=== PATIENT | female | born 1965 | race Hispanic/Latino ===

== ENCOUNTER 2020-11-09 14:21 | Emergency (ER) | payer OTHER, SELFPAY ==
[2020-11-09 15:25] LABS: #Monocytes 0.7 10x3/uL (0.0-1.1); #Neutrophils 4.3 10x3/uL (1.5-8.4); %Basophils 0.3 % (0.0-2.0); %Eosinophils 0.3 % (0.0-6.0); %Lymphocytes 17.8 % (18.0-47.0); %Monocytes 11.5 % (0.0-10.0); %Neutrophils 69.5 % (40.0-75.0); Hemoglobin 14.1 g/dL (12.0-15.5); Mean Corpuscular HGB CONC 35.2 g/dL (32.0-36.0); Mean Corpuscular Hemoglobin 29.2 pg (27.0-33.0); Mean Platelet Volume 9.6 fl (7.4-10.4); Platelet Count 214 10x3/uL (150-450); RBC Distribution Width 12.3 % (11.5-14.5); Red Blood Cell (RBC) Count 4.83 10x6/uL (3.90-5.03); White Blood Cell (WBC) Count 6.2 10x3/uL (3.5-10.5)
[2020-11-09 15:37] LABS: ALT (SGPT) 13 U/L (8-55); AST (SGOT) 14 U/L (5-34); Albumin 2.7 g/dL (3.5-5.0); Alkaline Phosphatase 71 U/L (40-110); Anion Gap 13 mmol/L (10-20); BUN (Urea Nitrogen) 13 mg/dL (9.8-20.1); Bilirubin, Total 0.3 mg/dL (0.2-1.2); Calc. Creatinine Clearance 0 mL/min (70-130); Calcium 8.5 mg/dL (7.8-10.44); Carbon Dioxide 24 mmol/L (22-29); Chloride 104 mmol/L (98-107); Globulin 3.3 g/dL (2.4-3.5); Glucose 300 mg/dL (70-105); Lipase 46 U/L (8-78); Potassium 3.7 mmol/L (3.5-5.1); Sodium 137 mmol/L (136-145)
[2020-11-09 15:44] LABS: Bilirubin Neg (Negative); Blood, Urine 150 (Negative); Clarity Slightly Cloudy (Clear); Glucose, Urine (Dipstick) >=1000 mg/dL (Negative); Ketone, Urine 5 mg/dL (Negative); Leukocyte 25 (Negative); Nitrite Negative (Negative); Protein, Urine (Dipstick) 500 mg/dl (Neg-Trace); Urobilinogen Normal mg/dL (Less than 2)
[2020-11-09 15:58] LABS: Bacteria/HPF 4+ HPF (None Seen); Squamous Epithelial 0-3 HPF (0-3)
[2020-11-09] MEDS ORDERED: Metoclopramide HCl 10 MG/2 ML VIAL ONE (17:01)
[2020-11-09] MEDS ORDERED: diphenhydrAMINE 50 MG/ML VIAL ONE (17:01)
[2020-11-09] MEDS ORDERED: Ketorolac Tromethamine 30 MG/ML VIAL ONE (17:01)
[2020-11-09] MEDS ORDERED: cefTRIAXone\\ROCEPHIN 2 GM VIAL ONE (17:47)
[2020-11-10 15:10] LABS: SARS-CoV-2 PCR by NAA DETECTED (NotDetected)
== END 2020-11-09 18:37 | disposition home or self-care (01) ==
LOC: CSHERS 14:21
DX: U07.1 COVID-19 (principal); N39.0 Urinary tract infection, site not specified; E11.9 Type 2 diabetes mellitus without complications; Z79.4 Long term (current) use of insulin
CPT/HCPCS: 71045; 80053; 81003; 81015; 83690; 85025; 87077; 87086; 87186; 87635; 87804; 96365; 96375; J0696; J1200; J1885; J2765; U0003; U0005

== ENCOUNTER 2022-03-16 02:23 | Emergency (ER) | payer OTHER, SELFPAY ==
[2022-03-16] MEDS ORDERED: Prochlorperazine 10 MG/2 ML VIAL ONE (02:45)
[2022-03-16] MEDS ORDERED: Ketorolac Tromethamine 30 MG/ML VIAL ONE (02:45)
== END 2022-03-16 04:35 | disposition home or self-care (01) ==
LOC: CSHERS 02:23
DX: R51.9 Headache, unspecified (principal); E11.9 Type 2 diabetes mellitus without complications; I10 Essential (primary) hypertension; Z79.899 Other long term (current) drug therapy
CPT/HCPCS: 70450; 96374; 96375; J0780; J1885

== ENCOUNTER 2022-05-14 23:22 | Inpatient (IN) | payer BC, SELFPAY ==
[2022-05-15] MEDS ORDERED: Dexamethasone 4 mg/ml Vial ONE (00:42)
[2022-05-15 00:48] LABS: #Eosinphils 0.1 10x3/uL (0.0-0.5); #Monocytes 0.8 10x3/uL (0.0-1.1); %Basophils 0.5 % (0.0-2.0); %Eosinophils 1.2 % (0.0-6.0); %Lymphocytes 8.8 % (18.0-47.0); %Monocytes 10.4 % (0.0-10.0); %Neutrophils 78.6 % (40.0-75.0); Hemoglobin 12.1 g/dL (12.0-15.5); Mean Corpuscular HGB CONC 34.4 g/dL (32.0-36.0); Mean Corpuscular Hemoglobin 28.8 pg (27.0-33.0); Mean Corpuscular Volume 83.8 fl (81.6-98.3); Platelet Count 252 10x3/uL (150-450); White Blood Cell (WBC) Count 7.6 10x3/uL (3.5-10.5)
[2022-05-15 00:55] LABS: ALT (SGPT) 9 U/L (8-55); AST (SGOT) 17 U/L (5-34); Alkaline Phosphatase 73 U/L (40-110); Anion Gap 13 mmol/L (10-20); BUN (Urea Nitrogen) 26 mg/dL (9.8-20.1); Bilirubin, Total 0.2 mg/dL (0.2-1.2); Calc. Creatinine Clearance 0 mL/min (70-130); Calcium 7.6 mg/dL (7.8-10.44); Carbon Dioxide 17 mmol/L (22-29); Chloride 110 mmol/L (98-107); Estimated GFR 26; Globulin 2.5 g/dL (2.4-3.5); Glucose 303 mg/dL (70-105); Potassium 3.6 mmol/L (3.5-5.1); Protein, Total 4.5 g/dL (6.0-8.3); Sodium 136 mmol/L (136-145)
[2022-05-15 01:31] LABS: SARS-CoV-2 NAA Rapid Test Not Detected (NotDetected)
[2022-05-15] MEDS ORDERED: Insulin Regular 300 UNITS/3 ML VIAL ONE (02:42)
[2022-05-15 04:14] VITALS: BMI 29.2
[2022-05-15] MEDS ORDERED: HYDROcodone/Acetaminophen 5/325 mg Tablet PO PRN (06:23)
[2022-05-15] MEDS ORDERED: Ondansetron PF 4 MG/2 ML Vial IVP PRN (06:23)
[2022-05-15] MEDS ORDERED: Ondansetron ODT 4 MG TAB PO PRN (06:23)
[2022-05-15] MEDS ORDERED: Dextrose 5% in Water 1,000 ML IV PRN ×2 (06:26→07:41)
[2022-05-15] MEDS ORDERED: Insulin Regular 300 UNITS/3 ML VIAL SC PRN (06:26)
[2022-05-15] MEDS ORDERED: Dextrose 50% Abboject 50 ML SYRINGE SLOW IVP PRN ×2 (06:26→07:41)
[2022-05-15 07:03] LABS: #Monocytes 0.1 10x3/uL (0.0-1.1); #Neutrophils 5.5 10x3/uL (1.5-8.4); %Basophils 0.5 % (0.0-2.0); %Lymphocytes 7.3 % (18.0-47.0); %Monocytes 1.7 % (0.0-10.0); %Neutrophils 89.8 % (40.0-75.0); Hemoglobin 11.1 g/dL (12.0-15.5); Mean Corpuscular HGB CONC 34.8 g/dL (32.0-36.0); Mean Corpuscular Hemoglobin 28.9 pg (27.0-33.0); Mean Corpuscular Volume 83.1 fl (81.6-98.3); Mean Platelet Volume 9.7 fl (7.4-10.4); Platelet Count 231 10x3/uL (150-450); RBC Distribution Width 12.9 % (11.5-14.5); Red Blood Cell (RBC) Count 3.84 10x6/uL (3.90-5.03); White Blood Cell (WBC) Count 6.1 10x3/uL (3.5-10.5)
[2022-05-15 07:26] LABS: ALT (SGPT) 8 U/L (8-55); AST (SGOT) 16 U/L (5-34); Albumin 1.8 g/dL (3.5-5.0); Alkaline Phosphatase 62 U/L (40-110); Anion Gap 12 mmol/L (10-20); BUN (Urea Nitrogen) 26 mg/dL (9.8-20.1); Bilirubin, Total 0.2 mg/dL (0.2-1.2); Calc. Creatinine Clearance 38 mL/min (70-130); Calcium 7.9 mg/dL (7.8-10.44); Carbon Dioxide 15 mmol/L (22-29); Chloride 111 mmol/L (98-107); Estimated GFR 29; Glucose 318 mg/dL (70-105); Magnesium 1.8 mg/dL (1.6-2.6); Potassium 3.6 mmol/L (3.5-5.1); Protein, Total 4.8 g/dL (6.0-8.3); Sodium 134 mmol/L (136-145)
[2022-05-15 07:27] LABS: Digoxin Less than 0.15 ng/mL (0.8-2.0)
[2022-05-15] MEDS ORDERED: FLU VACC QS2022-23(6MOS UP)/PF 60 MCG/0.5 ML SYRINGE IM ONE (09:00)
[2022-05-15] MEDS ORDERED: Oseltamivir 75 MG CAP PO SCH (09:00)
[2022-05-15] MEDS ORDERED: glipiZIDE 10 MG TAB PO SCH (09:00)
[2022-05-15] MEDS: Lantus 1000 UNITS/10 ML VIAL SC SCH ×2 (09:02→22:14)
[2022-05-15] MEDS: HumaLOG 300 UNITS/3 ML VIAL SC PRN ×3 (09:03→22:14)
[2022-05-15] MEDS: Sodium Chloride 0.9% 1,000 ML IV SCH ×2 (09:03→15:19)
[2022-05-15] MEDS: Digoxin 0.25 MG TAB PO SCH (09:07)
[2022-05-15] MEDS: Acetaminophen 325 MG TAB PO PRN ×2 (09:07→22:13)
[2022-05-15] MEDS: Carvedilol 25 MG TAB PO SCH ×2 (09:07→16:26)
[2022-05-15] MEDS: Empagliflozin 25 MG TAB PO SCH ×2 (09:08→22:06)
[2022-05-15] MEDS: Heparin 5,000 UNITS/ML VIAL SC SCH ×3 (09:13→22:06)
[2022-05-15] MEDS ORDERED: HumaLOG 300 UNITS/3 ML VIAL SC SCH (12:30)
[2022-05-15] MEDS: Pregabalin 75 MG CAP PO SCH (22:06)
[2022-05-15] MEDS: Oseltamivir 6 MG/ML ORAL SUSP PO SCH (22:13)
[2022-05-15] MEDS: GUAIFENESIN SF SOLN 200 MG/10 ML UDCUP PO PRN (22:27)
[2022-05-16] MEDS: Sodium Chloride 0.9% 1,000 ML IV SCH ×3 (03:09→23:58)
[2022-05-16 04:46] LABS: Anion Gap 9 mmol/L (10-20); BUN (Urea Nitrogen) 30 mg/dL (9.8-20.1); Calc. Creatinine Clearance 41 mL/min (70-130); Calcium 7.5 mg/dL (7.8-10.44); Carbon Dioxide 17 mmol/L (22-29); Chloride 114 mmol/L (98-107); Estimated GFR 32; Glucose 198 mg/dL (70-105); Magnesium 1.8 mg/dL (1.6-2.6); Potassium 3.4 mmol/L (3.5-5.1); Sodium 137 mmol/L (136-145)
[2022-05-16 04:47] LABS: #Monocytes 0.9 10x3/uL (0.0-1.1); #Neutrophils 4.4 10x3/uL (1.5-8.4); %Basophils 0.4 % (0.0-2.0); %Eosinophils 0.4 % (0.0-6.0); %Lymphocytes 22.2 % (18.0-47.0); %Monocytes 12.9 % (0.0-10.0); %Neutrophils 63.7 % (40.0-75.0); Hemoglobin 9.6 g/dL (12.0-15.5); Mean Corpuscular HGB CONC 34.4 g/dL (32.0-36.0); Mean Corpuscular Hemoglobin 28.9 pg (27.0-33.0); Platelet Count 255 10x3/uL (150-450); RBC Distribution Width 12.9 % (11.5-14.5); Red Blood Cell (RBC) Count 3.32 10x6/uL (3.90-5.03)
[2022-05-16] MEDS: Acetaminophen 325 MG TAB PO PRN ×2 (09:15→16:31)
[2022-05-16] MEDS: Digoxin 0.25 MG TAB PO SCH (09:15)
[2022-05-16] MEDS: Lantus 1000 UNITS/10 ML VIAL SC SCH ×2 (09:15→20:37)
[2022-05-16] MEDS: Carvedilol 25 MG TAB PO SCH ×2 (09:16→16:32)
[2022-05-16] MEDS: Oseltamivir 6 MG/ML ORAL SUSP PO SCH ×2 (09:16→20:16)
[2022-05-16] MEDS: GUAIFENESIN SF SOLN 200 MG/10 ML UDCUP PO PRN ×3 (09:16→20:38)
[2022-05-16] MEDS: Heparin 5,000 UNITS/ML VIAL SC SCH ×3 (09:30→20:17)
[2022-05-16] MEDS: hydrOXYzine 25 MG TAB PO PRN ×2 (12:01→20:38)
[2022-05-16] MEDS: HumaLOG 300 UNITS/3 ML VIAL SC PRN (12:02)
[2022-05-16] MEDS ORDERED: Potassium Chloride 20 MEQ TAB PO SCH (16:00)
[2022-05-16] MEDS: Pregabalin 75 MG CAP PO SCH (20:16)
[2022-05-17 04:54] LABS: #Basophils 0.1 10x3/uL (0.0-0.2); #Eosinphils 0.1 10x3/uL (0.0-0.5); #Monocytes 1.1 10x3/uL (0.0-1.1); #Neutrophils 8.2 10x3/uL (1.5-8.4); %Basophils 0.5 % (0.0-2.0); %Eosinophils 0.8 % (0.0-6.0); %Lymphocytes 24.5 % (18.0-47.0); %Monocytes 8.5 % (0.0-10.0); %Neutrophils 65.2 % (40.0-75.0); Hemoglobin 9.3 g/dL (12.0-15.5); Mean Corpuscular HGB CONC 33.3 g/dL (32.0-36.0); Mean Corpuscular Hemoglobin 28.9 pg (27.0-33.0); Mean Corpuscular Volume 86.6 fl (81.6-98.3); Mean Platelet Volume 10.1 fl (7.4-10.4); Platelet Count 231 10x3/uL (150-450); RBC Distribution Width 13.4 % (11.5-14.5); Red Blood Cell (RBC) Count 3.22 10x6/uL (3.90-5.03); White Blood Cell (WBC) Count 12.6 10x3/uL (3.5-10.5)
[2022-05-17 05:24] LABS: ALT (SGPT) 6 U/L (8-55); AST (SGOT) 15 U/L (5-34); Albumin 1.5 g/dL (3.5-5.0); Alkaline Phosphatase 52 U/L (40-110); Anion Gap 10 mmol/L (10-20); BUN (Urea Nitrogen) 33 mg/dL (9.8-20.1); Bilirubin, Total 0.1 mg/dL (0.2-1.2); Calc. Creatinine Clearance 37 mL/min (70-130); Calcium 7.2 mg/dL (7.8-10.44); Carbon Dioxide 15 mmol/L (22-29); Chloride 116 mmol/L (98-107); Estimated GFR 28; Globulin 2.8 g/dL (2.4-3.5); Glucose 150 mg/dL (70-105); Magnesium 1.8 mg/dL (1.6-2.6); Protein, Total 4.3 g/dL (6.0-8.3); Sodium 137 mmol/L (136-145)
[2022-05-17] MEDS: Sodium Chloride 0.9% 1,000 ML IV SCH (05:59)
[2022-05-17] MEDS ORDERED: Sodium Bicarbonate 150 MEQ in Dextrose 5% in Water 1,000 ML IV SCH ×2 (08:30)
[2022-05-17] MEDS: Lantus 1000 UNITS/10 ML VIAL SC SCH ×2 (09:44→20:53)
[2022-05-17] MEDS: Heparin 5,000 UNITS/ML VIAL SC SCH ×3 (09:45→20:52)
[2022-05-17] MEDS: GUAIFENESIN SF SOLN 200 MG/10 ML UDCUP PO PRN ×2 (09:45→20:54)
[2022-05-17] MEDS: Digoxin 0.25 MG TAB PO SCH (09:46)
[2022-05-17] MEDS: Oseltamivir 6 MG/ML ORAL SUSP PO SCH ×2 (09:46→20:52)
[2022-05-17] MEDS: Carvedilol 25 MG TAB PO SCH ×2 (09:46→16:30)
[2022-05-17] MEDS: Empagliflozin 25 MG TAB PO SCH (09:47)
[2022-05-17] MEDS ORDERED: Furosemide 40 MG/4 ML VIAL SLOW IVP SCH (11:30)
[2022-05-17] MEDS: HumaLOG 300 UNITS/3 ML VIAL SC PRN (16:46)
[2022-05-17] MEDS: Pregabalin 75 MG CAP PO SCH (20:53)
[2022-05-17] MEDS: hydrOXYzine 25 MG TAB PO PRN (20:54)
[2022-05-18 04:59] LABS: #Eosinphils 0.2 10x3/uL (0.0-0.5); #Monocytes 0.7 10x3/uL (0.0-1.1); #Neutrophils 3.6 10x3/uL (1.5-8.4); %Basophils 0.6 % (0.0-2.0); %Eosinophils 2.8 % (0.0-6.0); %Lymphocytes 33.4 % (18.0-47.0); %Monocytes 10.2 % (0.0-10.0); %Neutrophils 52.4 % (40.0-75.0); Hemoglobin 9.5 g/dL (12.0-15.5); Mean Corpuscular HGB CONC 33.9 g/dL (32.0-36.0); Mean Corpuscular Hemoglobin 29.1 pg (27.0-33.0); Mean Corpuscular Volume 85.6 fl (81.6-98.3); Mean Platelet Volume 9.5 fl (7.4-10.4); Platelet Count 247 10x3/uL (150-450); RBC Distribution Width 13.3 % (11.5-14.5); Red Blood Cell (RBC) Count 3.27 10x6/uL (3.90-5.03); White Blood Cell (WBC) Count 6.9 10x3/uL (3.5-10.5)
[2022-05-18 05:23] LABS: Anion Gap 9 mmol/L (10-20); BUN (Urea Nitrogen) 34 mg/dL (9.8-20.1); Calc. Creatinine Clearance 42 mL/min (70-130); Calcium 7.4 mg/dL (7.8-10.44); Carbon Dioxide 19 mmol/L (22-29); Chloride 115 mmol/L (98-107); Estimated GFR 33; Glucose 141 mg/dL (70-105); Potassium 3.6 mmol/L (3.5-5.1); Sodium 139 mmol/L (136-145)
[2022-05-18] MEDS: Carvedilol 25 MG TAB PO SCH ×2 (09:08→16:58)
[2022-05-18] MEDS: Heparin 5,000 UNITS/ML VIAL SC SCH ×3 (09:08→21:22)
[2022-05-18] MEDS: Digoxin 0.25 MG TAB PO SCH (09:08)
[2022-05-18] MEDS: Lantus 1000 UNITS/10 ML VIAL SC SCH ×2 (09:08→21:19)
[2022-05-18] MEDS: Empagliflozin 25 MG TAB PO SCH (09:08)
[2022-05-18] MEDS: Oseltamivir 6 MG/ML ORAL SUSP PO SCH ×2 (09:09→21:18)
[2022-05-18] MEDS: GUAIFENESIN SF SOLN 200 MG/10 ML UDCUP PO PRN ×3 (09:12→21:17)
[2022-05-18] MEDS ORDERED: Cefepime 1 GM in Sodium Chloride 0.9% 100 ML IVPB SCH (09:45)
[2022-05-18] MEDS: Pregabalin 75 MG CAP PO SCH (21:17)
[2022-05-18] MEDS: Cefepime 1 GM in Sodium Chloride 0.9% 100 ML IVPB SCH (21:18)
[2022-05-18] MEDS: hydrOXYzine 25 MG TAB PO PRN (21:22)
[2022-05-19] MEDS ORDERED: Nitroglycerin 2% Ointment 1 INCH/1 GM Packet TOP SCH (00:15)
[2022-05-19] MEDS: Acetaminophen 325 MG TAB PO PRN (00:47)
[2022-05-19] MEDS: Oseltamivir 6 MG/ML ORAL SUSP PO SCH ×2 (08:41→22:14)
[2022-05-19] MEDS: Cefepime 1 GM in Sodium Chloride 0.9% 100 ML IVPB SCH ×2 (08:41→21:45)
[2022-05-19] MEDS: Heparin 5,000 UNITS/ML VIAL SC SCH ×3 (08:42→21:45)
[2022-05-19] MEDS: Digoxin 0.25 MG TAB PO SCH (08:42)
[2022-05-19] MEDS: Carvedilol 25 MG TAB PO SCH ×2 (08:42→17:15)
[2022-05-19] MEDS: Spironolactone 25 MG TAB PO SCH (08:42)
[2022-05-19] MEDS: Empagliflozin 25 MG TAB PO SCH (08:42)
[2022-05-19] MEDS: Lantus 1000 UNITS/10 ML VIAL SC SCH ×2 (08:42→22:15)
[2022-05-19] MEDS: GUAIFENESIN SF SOLN 200 MG/10 ML UDCUP PO PRN ×2 (08:45→22:18)
[2022-05-19 08:53] LABS: Anion Gap 10 mmol/L (10-20); BUN (Urea Nitrogen) 33 mg/dL (9.8-20.1); Calc. Creatinine Clearance 45 mL/min (70-130); Calcium 7.8 mg/dL (7.8-10.44); Carbon Dioxide 20 mmol/L (22-29); Chloride 115 mmol/L (98-107); Estimated GFR 35; Glucose 98 mg/dL (70-105); Potassium 4.1 mmol/L (3.5-5.1); Sodium 141 mmol/L (136-145)
[2022-05-19] MEDS: Pregabalin 75 MG CAP PO SCH (21:45)
[2022-05-19] MEDS: hydrOXYzine 25 MG TAB PO PRN (22:15)
[2022-05-19] MEDS: HumaLOG 300 UNITS/3 ML VIAL SC PRN (22:16)
[2022-05-19] MEDS ORDERED: Amlodipine 5 MG TAB PO SCH (23:00)
[2022-05-20] MEDS: Digoxin 0.25 MG TAB PO SCH (08:09)
[2022-05-20] MEDS: Carvedilol 25 MG TAB PO SCH (08:10)
[2022-05-20] MEDS: Empagliflozin 25 MG TAB PO SCH (08:10)
[2022-05-20] MEDS: Spironolactone 25 MG TAB PO SCH (08:10)
[2022-05-20] MEDS: Lantus 1000 UNITS/10 ML VIAL SC SCH (08:10)
[2022-05-20] MEDS: Cefepime 1 GM in Sodium Chloride 0.9% 100 ML IVPB SCH (08:10)
[2022-05-20] MEDS: Heparin 5,000 UNITS/ML VIAL SC SCH (08:10)
[2022-05-20] MEDS: GUAIFENESIN SF SOLN 200 MG/10 ML UDCUP PO PRN (08:10)
[2022-05-20 10:12] VITALS: BP 169/78; TEMP 98.1
== END 2022-05-20 12:29 | disposition home or self-care (01) | DRG 683 ==
LOC: CSHERS 23:22 → INTOOBSV 05-15 03:39 → CSHTELE 05-15 03:39 → OBSVTOIN 05-16 09:16
PROVIDERS: ADMIT Internal Medicine; ATTEND Hospitalist
DX: N17.9 Acute kidney failure, unspecified (principal); I50.42 Chronic combined systolic (congestive) and diastolic (congestive) heart failure; Z28.310 Unvaccinated for COVID-19; E11.65 Type 2 diabetes mellitus with hyperglycemia; Z79.4 Long term (current) use of insulin; I11.0 Hypertensive heart disease with heart failure; T50.1X1A Poisoning by loop [high-ceiling] diuretics, accidental (unintentional), initial encounter; J10.1 Influenza due to other identified influenza virus with other respiratory manifestations
CPT/HCPCS: 36415; 36416; 70450; 71045; 80048; 80053; 80162; 82010; 83036; 83605; 83735; 83880; 84484; 85025; 85379; 93005; 93306; 94640; 94760; 96361; 96372; 96374; 96375; G0378; J0692; J1100; J1644; J1815; J1940; J2405; J3490; J7050; J7070; J7620

== ENCOUNTER 2022-06-08 21:49 | Inpatient (IN) | payer BC, SELFPAY ==
[2022-06-08 22:49] LABS: #Basophils 0.1 10x3/uL (0.0-0.2); #Eosinphils 0.1 10x3/uL (0.0-0.5); #Monocytes 0.8 10x3/uL (0.0-1.1); %Basophils 0.7 % (0.0-2.0); %Lymphocytes 15.3 % (18.0-47.0); %Monocytes 9.4 % (0.0-10.0); %Neutrophils 73.1 % (40.0-75.0); Hemoglobin 11.8 g/dL (12.0-15.5); Mean Corpuscular HGB CONC 33.9 g/dL (32.0-36.0); Mean Corpuscular Hemoglobin 28.9 pg (27.0-33.0); Mean Corpuscular Volume 85.1 fl (81.6-98.3); Mean Platelet Volume 9.4 fl (7.4-10.4); Platelet Count 351 10x3/uL (150-450); RBC Distribution Width 13.8 % (11.5-14.5); Red Blood Cell (RBC) Count 4.09 10x6/uL (3.90-5.03); White Blood Cell (WBC) Count 8.3 10x3/uL (3.5-10.5)
[2022-06-08] MEDS ORDERED: Albuterol Sulfate 2.5 mg/3 ml Neb ONE (22:56)
[2022-06-08] MEDS ORDERED: Furosemide 40 MG/4 ML VIAL ONE (22:57)
[2022-06-08 23:12] LABS: ALT (SGPT) 13 U/L (8-55); AST (SGOT) 15 U/L (5-34); Albumin 1.9 g/dL (3.5-5.0); Alkaline Phosphatase 75 U/L (40-110); Anion Gap 10 mmol/L (10-20); BUN (Urea Nitrogen) 27 mg/dL (9.8-20.1); Bilirubin, Total 0.1 mg/dL (0.2-1.2); Calc. Creatinine Clearance 0 mL/min (70-130); Calcium 7.2 mg/dL (7.8-10.44); Carbon Dioxide 18 mmol/L (22-29); Chloride 113 mmol/L (98-107); Estimated GFR 28; Globulin 2.6 g/dL (2.4-3.5); Glucose 158 mg/dL (70-105); Potassium 3.9 mmol/L (3.5-5.1); Protein, Total 4.5 g/dL (6.0-8.3); Sodium 137 mmol/L (136-145)
[2022-06-08 23:49] LABS: SARS-CoV-2 NAA Rapid Test Not Detected (NotDetected)
[2022-06-09] MEDS ORDERED: cefTRIAXone\\ROCEPHIN 2 GM VIAL ONE (00:22)
[2022-06-09] MEDS ORDERED: Vancomycin 1 GM VIAL ONE (01:01)
[2022-06-09] MEDS ORDERED: hydrALAZINE 20 MG/ML VIAL SLOW IVP PRN (01:01)
[2022-06-09] MEDS ORDERED: Dextrose 5% in Water 1,000 ML IV PRN (01:02)
[2022-06-09] MEDS ORDERED: Dextrose 50% Abboject 50 ML SYRINGE SLOW IVP PRN (01:02)
[2022-06-09] MEDS ORDERED: Azithromycin 500 MG VIAL ONE (01:16)
[2022-06-09] MEDS ORDERED: methylPREDNISolone Sod Succ 40 MG VIAL ONE ×2 (01:20→08:14)
[2022-06-09] MEDS: Azithromycin 500 MG in Sodium Chloride 0.9% 250 ML 250 ML IVPB SCH (01:30)
[2022-06-09] MEDS: methylPREDNISolone Sod Succ 40 MG VIAL IVP SCH ×3 (01:31→16:18)
[2022-06-09] MEDS ORDERED: guaiFENesin/Codeine Phosphate 100 mg/10 mg 5 ml UD Cup ONE (01:42)
[2022-06-09] MEDS: Guaifenesin DM 100-10/5 ML UDCUP PO PRN ×4 (01:45→21:45)
[2022-06-09] MEDS ORDERED: Heparin 5,000 UNITS/ML VIAL ONE (08:14)
[2022-06-09 08:15] LABS: #Eosinphils 0.2 10x3/uL (0.0-0.5); #Monocytes 0.1 10x3/uL (0.0-1.1); #Neutrophils 8.2 10x3/uL (1.5-8.4); %Basophils 0.2 % (0.0-2.0); %Eosinophils 1.8 % (0.0-6.0); %Lymphocytes 6.2 % (18.0-47.0); %Monocytes 0.6 % (0.0-10.0); %Neutrophils 90.8 % (40.0-75.0); Hemoglobin 11.4 g/dL (12.0-15.5); Mean Corpuscular HGB CONC 33.2 g/dL (32.0-36.0); Mean Corpuscular Hemoglobin 28.4 pg (27.0-33.0); Mean Corpuscular Volume 85.3 fl (81.6-98.3); Mean Platelet Volume 9.4 fl (7.4-10.4); Platelet Count 354 10x3/uL (150-450); RBC Distribution Width 13.8 % (11.5-14.5); Red Blood Cell (RBC) Count 4.02 10x6/uL (3.90-5.03); White Blood Cell (WBC) Count 9.1 10x3/uL (3.5-10.5)
[2022-06-09 08:49] LABS: Anion Gap 14 mmol/L (10-20); BUN (Urea Nitrogen) 27 mg/dL (9.8-20.1); Calc. Creatinine Clearance 0 mL/min (70-130); Calcium 7.2 mg/dL (7.8-10.44); Carbon Dioxide 14 mmol/L (22-29); Chloride 113 mmol/L (98-107); Estimated GFR 27; Glucose 297 mg/dL (70-105); Potassium 4.3 mmol/L (3.5-5.1); Sodium 137 mmol/L (136-145); Troponin I 0.016 ng/mL (< 0.028)
[2022-06-09] MEDS: Heparin 5,000 UNITS/ML VIAL SC SCH ×3 (09:35→20:06)
[2022-06-09] MEDS ORDERED: Insulin Regular 300 UNITS/3 ML VIAL ONE (12:00)
[2022-06-09] MEDS: HumaLOG 300 UNITS/3 ML VIAL SC PRN ×3 (12:05→21:45)
[2022-06-09 13:39] VITALS: BMI 29.2
[2022-06-09] MEDS ORDERED: FLU VACC QS2022-23(6MOS UP)/PF 60 MCG/0.5 ML SYRINGE IM ONE (20:15)
[2022-06-09] MEDS ORDERED: hydrOXYzine Pamoate 25 mg Capsule PO SCH (22:45)
[2022-06-09] MEDS ORDERED: cefTRIAXone\\ROCEPHIN 1 GM in Sodium Chloride 0.9% 100 ML IVPB SCH (23:00)
[2022-06-10] MEDS: methylPREDNISolone Sod Succ 40 MG VIAL IVP SCH (01:06)
[2022-06-10] MEDS: Azithromycin 500 MG in Sodium Chloride 0.9% 250 ML 250 ML IVPB SCH (01:07)
[2022-06-10 02:18] LABS: Legionella Urinary Ag Negative (Negative); Strep pneumo Urine Ag NEGATIVE (NEGATIVE)
[2022-06-10] MEDS: HumaLOG 300 UNITS/3 ML VIAL SC PRN ×2 (04:55→11:56)
[2022-06-10] MEDS: Guaifenesin DM 100-10/5 ML UDCUP PO PRN ×2 (04:55→11:57)
[2022-06-10] MEDS ORDERED: Lisinopril 10 MG TAB PO SCH (10:00)
[2022-06-10] MEDS ORDERED: cefTRIAXone\\ROCEPHIN 1 GM in Sodium Chloride 0.9% 100 ML IVPB SCH (10:00)
[2022-06-10] MEDS ORDERED: Azithromycin 250 MG TAB PO SCH (10:00)
[2022-06-10] MEDS ORDERED: Furosemide 40 MG/4 ML VIAL SLOW IVP SCH (10:00)
[2022-06-10] MEDS ORDERED: cefTRIAXone\\ROCEPHIN 1 GM VIAL ONE (11:43)
[2022-06-10] MEDS: Heparin 5,000 UNITS/ML VIAL SC SCH (11:55)
[2022-06-10] MEDS: HumaLOG 300 UNITS/3 ML VIAL SC SCH ×2 (11:56→12:09)
[2022-06-10 13:21] VITALS: BP 141/81; TEMP 97.7
[2022-06-11] MEDS ORDERED: Lisinopril 10 MG TAB PO SCH (09:00)
== END 2022-06-10 13:24 | disposition home or self-care (01) | DRG 193 ==
LOC: CSHERS 21:49 → CSHERHOLD 06-09 01:03 → CSHTELE 06-09 13:24
PROVIDERS: ADMIT Internal Medicine; ATTEND Internal Medicine
DX: J18.9 Pneumonia, unspecified organism (principal); I50.33 Acute on chronic diastolic (congestive) heart failure; I13.0 Hypertensive heart and chronic kidney disease with heart failure and stage 1 through stage 4 chronic kidney disease, or unspecified chronic kidney disease; N17.9 Acute kidney failure, unspecified; N18.30 Chronic kidney disease, stage 3 unspecified; E11.22 Type 2 diabetes mellitus with diabetic chronic kidney disease; E11.42 Type 2 diabetes mellitus with diabetic polyneuropathy; Z20.822 Contact with and (suspected) exposure to COVID-19; E11.65 Type 2 diabetes mellitus with hyperglycemia; T38.0X5A Adverse effect of glucocorticoids and synthetic analogues, initial encounter; Z87.891 Personal history of nicotine dependence; Z79.51 Long term (current) use of inhaled steroids; Z79.4 Long term (current) use of insulin; Z98.51 Tubal ligation status; Z79.899 Other long term (current) drug therapy
CPT/HCPCS: 36415; 36416; 71045; 80048; 80053; 83605; 83880; 84484; 85025; 87040; 87449; 87633; 87899; 93005; 94644; 94760; 96374; 96375; J0456; J0696; J1644; J1815; J1940; J2920; J3370; J3490; J7050; J7611; J7620; Q0177

== ENCOUNTER 2022-07-04 13:56 | Inpatient (IN) | payer BC ==
[2022-07-04 15:31] LABS: #Basophils 0.1 10x3/uL (0.0-0.2); #Eosinphils 0.2 10x3/uL (0.0-0.5); #Monocytes 0.3 10x3/uL (0.0-1.1); #Neutrophils 4.2 10x3/uL (1.5-8.4); %Basophils 0.9 % (0.0-2.0); %Eosinophils 2.7 % (0.0-6.0); %Lymphocytes 26.2 % (18.0-47.0); %Monocytes 4.8 % (0.0-10.0); %Neutrophils 65.2 % (40.0-75.0); Hemoglobin 11.5 g/dL (12.0-15.5); Mean Corpuscular HGB CONC 33.1 g/dL (32.0-36.0); Mean Corpuscular Hemoglobin 28.7 pg (27.0-33.0); Mean Corpuscular Volume 86.5 fl (81.6-98.3); Mean Platelet Volume 9.6 fl (7.4-10.4); Platelet Count 364 10x3/uL (150-450); RBC Distribution Width 14.4 % (11.5-14.5); Red Blood Cell (RBC) Count 4.01 10x6/uL (3.90-5.03); White Blood Cell (WBC) Count 6.4 10x3/uL (3.5-10.5)
[2022-07-04 15:36] LABS: ALT (SGPT) 8 U/L (8-55); AST (SGOT) 16 U/L (5-34); Alkaline Phosphatase 63 U/L (40-110); Anion Gap 12 mmol/L (10-20); BUN (Urea Nitrogen) 23 mg/dL (9.8-20.1); Bilirubin, Total 0.2 mg/dL (0.2-1.2); Calc. Creatinine Clearance 0 mL/min (70-130); Calcium 7.7 mg/dL (7.8-10.44); Carbon Dioxide 16 mmol/L (22-29); Chloride 115 mmol/L (98-107); Estimated GFR 30; Globulin 2.6 g/dL (2.4-3.5); Glucose 227 mg/dL (70-105); Potassium 3.8 mmol/L (3.5-5.1); Protein, Total 4.6 g/dL (6.0-8.3); Sodium 139 mmol/L (136-145)
[2022-07-04 15:56] LABS: CKMB 6.8 ng/mL (0-6.6)
[2022-07-04] MEDS ORDERED: Nitroglycerin 2% Ointment 1 INCH/1 GM Packet ONE (16:47)
[2022-07-04] MEDS ORDERED: Furosemide 40 MG/4 ML VIAL ONE (16:47)
[2022-07-04] MEDS ORDERED: Ondansetron ODT 4 MG TAB PO PRN (17:35)
[2022-07-04] MEDS ORDERED: Ondansetron PF 4 MG/2 ML Vial IVP PRN (17:35)
[2022-07-04] MEDS ORDERED: Dextrose 50% Abboject 50 ML SYRINGE SLOW IVP PRN (17:35)
[2022-07-04] MEDS ORDERED: Dextrose 5% in Water 1,000 ML IV PRN (17:35)
[2022-07-04] MEDS ORDERED: Ipratropium/Albuterol 3 ML NEB NEB PRN (17:40)
[2022-07-04 18:05] LABS: SARS-CoV-2 NAA Rapid Test Not Detected (NotDetected)
[2022-07-04] MEDS ORDERED: Benzonatate 100 MG CAP PO PRN (18:10)
[2022-07-04] MEDS ORDERED: cefTRIAXone\\ROCEPHIN 2 GM in Sodium Chloride 0.9% 100 ML IVPB SCH (18:30)
[2022-07-04] MEDS ORDERED: Doxycycline 100 MG in Sodium Chloride 0.9% 100 ML IVPB SCH (18:45)
[2022-07-04] MEDS ORDERED: Aspirin 325 MG TAB PO SCH (20:00)
[2022-07-04] MEDS ORDERED: Furosemide 40 MG/4 ML VIAL SLOW IVP SCH (20:00)
[2022-07-04] MEDS: Pregabalin 75 MG CAP PO SCH (20:10)
[2022-07-04] MEDS: Heparin 5,000 UNITS/ML VIAL SC SCH (20:10)
[2022-07-04] MEDS: Lantus 1000 UNITS/10 ML VIAL SC SCH (20:11)
[2022-07-04] MEDS: hydrOXYzine 25 MG TAB PO PRN (20:23)
[2022-07-04] MEDS ORDERED: Famotidine 20 MG TAB PO SCH (21:00)
[2022-07-04 21:26] LABS: Troponin I 0.033 ng/mL (< 0.028)
[2022-07-05 05:50] LABS: #Basophils 0.1 10x3/uL (0.0-0.2); #Eosinphils 0.2 10x3/uL (0.0-0.5); #Monocytes 0.3 10x3/uL (0.0-1.1); #Neutrophils 2.3 10x3/uL (1.5-8.4); %Basophils 1.2 % (0.0-2.0); %Eosinophils 4.8 % (0.0-6.0); %Lymphocytes 41.2 % (18.0-47.0); %Monocytes 6.6 % (0.0-10.0); Anion Gap 11 mmol/L (10-20); BUN (Urea Nitrogen) 22 mg/dL (9.8-20.1); Calc. Creatinine Clearance 40 mL/min (70-130); Calcium 7.9 mg/dL (7.8-10.44); Carbon Dioxide 17 mmol/L (22-29); Chloride 118 mmol/L (98-107); Estimated GFR 31; Glucose 87 mg/dL (70-105); Hemoglobin 10.6 g/dL (12.0-15.5); Mean Corpuscular HGB CONC 32.8 g/dL (32.0-36.0); Mean Corpuscular Hemoglobin 28.3 pg (27.0-33.0); Mean Corpuscular Volume 86.4 fl (81.6-98.3); Mean Platelet Volume 9.4 fl (7.4-10.4); Platelet Count 344 10x3/uL (150-450); Potassium 3.6 mmol/L (3.5-5.1); RBC Distribution Width 14.5 % (11.5-14.5); Red Blood Cell (RBC) Count 3.74 10x6/uL (3.90-5.03); Sodium 142 mmol/L (136-145)
[2022-07-05] MEDS: Acetaminophen 325 MG TAB PO PRN (06:00)
[2022-07-05] MEDS ORDERED: Furosemide 40 MG/4 ML VIAL SLOW IVP SCH (06:00)
[2022-07-05] MEDS ORDERED: Doxycycline 100 MG in Sodium Chloride 0.9% 100 ML IVPB SCH (09:00)
[2022-07-05] MEDS: Carvedilol 25 MG TAB PO SCH ×2 (09:36→16:34)
[2022-07-05] MEDS: Amlodipine 10 MG TAB PO SCH (09:36)
[2022-07-05] MEDS: Spironolactone 25 MG TAB PO SCH (09:36)
[2022-07-05] MEDS: Heparin 5,000 UNITS/ML VIAL SC SCH ×2 (09:36→21:05)
[2022-07-05] MEDS: Lisinopril 10 MG TAB PO SCH (09:36)
[2022-07-05] MEDS: Aspirin 81 mg Enteric Coated Tablet PO SCH (09:36)
[2022-07-05] MEDS: Empagliflozin 25 MG TAB PO SCH (09:36)
[2022-07-05] MEDS: Lantus 1000 UNITS/10 ML VIAL SC SCH (09:41)
[2022-07-05] MEDS: Furosemide 40 MG/4 ML VIAL SLOW IVP SCH (14:53)
[2022-07-05] MEDS ORDERED: cefTRIAXone\\ROCEPHIN 1 GM in Sodium Chloride 0.9% 100 ML IVPB SCH (18:00)
[2022-07-05] MEDS ORDERED: Famotidine 20 MG TAB PO SCH (21:00)
[2022-07-05] MEDS ORDERED: Lantus 1000 UNITS/10 ML VIAL SC SCH (21:00)
[2022-07-05] MEDS: Pregabalin 75 MG CAP PO SCH (21:06)
[2022-07-05] MEDS: hydrOXYzine 25 MG TAB PO PRN (21:09)
[2022-07-06] MEDS: Acetaminophen 325 MG TAB PO PRN (04:20)
[2022-07-06 05:58] LABS: #Eosinphils 0.2 10x3/uL (0.0-0.5); #Monocytes 0.4 10x3/uL (0.0-1.1); %Basophils 0.8 % (0.0-2.0); %Eosinophils 4.4 % (0.0-6.0); %Lymphocytes 31.6 % (18.0-47.0); %Monocytes 6.9 % (0.0-10.0); %Neutrophils 56.1 % (40.0-75.0); Mean Corpuscular HGB CONC 33.2 g/dL (32.0-36.0); Mean Corpuscular Hemoglobin 28.7 pg (27.0-33.0); Mean Corpuscular Volume 86.2 fl (81.6-98.3); Mean Platelet Volume 9.3 fl (7.4-10.4); Platelet Count 317 10x3/uL (150-450); RBC Distribution Width 14.6 % (11.5-14.5); Red Blood Cell (RBC) Count 3.49 10x6/uL (3.90-5.03); White Blood Cell (WBC) Count 5.3 10x3/uL (3.5-10.5)
[2022-07-06] MEDS: Furosemide 40 MG/4 ML VIAL SLOW IVP SCH ×2 (06:18→14:12)
[2022-07-06 06:19] LABS: Anion Gap 11 mmol/L (10-20); BUN (Urea Nitrogen) 26 mg/dL (9.8-20.1); Calc. Creatinine Clearance 38 mL/min (70-130); Calcium 7.6 mg/dL (7.8-10.44); Carbon Dioxide 17 mmol/L (22-29); Chloride 117 mmol/L (98-107); Estimated GFR 27; Glucose 119 mg/dL (70-105); Potassium 3.6 mmol/L (3.5-5.1); Sodium 141 mmol/L (136-145)
[2022-07-06] MEDS: Spironolactone 25 MG TAB PO SCH (08:54)
[2022-07-06] MEDS: Empagliflozin 25 MG TAB PO SCH (08:54)
[2022-07-06] MEDS: Lisinopril 10 MG TAB PO SCH (08:54)
[2022-07-06] MEDS: Amlodipine 10 MG TAB PO SCH (08:55)
[2022-07-06] MEDS: Aspirin 81 mg Enteric Coated Tablet PO SCH (08:55)
[2022-07-06] MEDS: Carvedilol 25 MG TAB PO SCH ×2 (08:55→16:58)
[2022-07-06] MEDS: Heparin 5,000 UNITS/ML VIAL SC SCH ×2 (08:57→21:04)
[2022-07-06] MEDS ORDERED: Sodium Bicarbonate Tab 325 MG TAB PO SCH (10:15)
[2022-07-06 10:57] LABS: Magnesium 1.9 mg/dL (1.6-2.6); Phosphorus 5.8 mg/dL (2.3-4.7)
[2022-07-06 16:25] LABS: Bilirubin Neg (Negative); Blood, Urine 10 (Negative); Clarity Clear (Clear); Glucose, Urine (Dipstick) 250 mg/dL (Negative); Ketone, Urine Negative (Negative); Leukocyte Negative (Negative); Nitrite Negative (Negative); Protein, Urine (Dipstick) 500 mg/dl (Neg-Trace); Specific Gravity, Urine 1.015 (1.005-1.030); Urobilinogen Normal mg/dL (Less than 2)
[2022-07-06 16:35] LABS: Bacteria/HPF None Seen HPF (None Seen); RBC/HPF 0-3 HPF (0-3); Squamous Epithelial None Seen HPF (0-3); WBC/HPF None Seen HPF (0-3)
[2022-07-06] MEDS: Calcium Acetate 667 MG CAP PO SCH (16:58)
[2022-07-06] MEDS ORDERED: Albumin 25% 25 GM/100 ML BOT IVPB SCH (18:00)
[2022-07-06] MEDS ORDERED: Lantus 1000 UNITS/10 ML VIAL SC SCH (21:00)
[2022-07-06] MEDS: Sodium Bicarbonate Tab 325 MG TAB PO SCH (21:05)
[2022-07-06] MEDS: Pregabalin 75 MG CAP PO SCH (21:05)
[2022-07-06] MEDS ORDERED: Furosemide 20 MG/2 ML VIAL SLOW IVP SCH (22:45)
[2022-07-06] MEDS: hydrOXYzine 25 MG TAB PO PRN (23:46)
[2022-07-07] MEDS: Furosemide 40 MG/4 ML VIAL SLOW IVP SCH (06:02)
[2022-07-07 06:14] LABS: #Eosinphils 0.2 10x3/uL (0.0-0.5); #Monocytes 0.4 10x3/uL (0.0-1.1); #Neutrophils 2.8 10x3/uL (1.5-8.4); %Basophils 0.8 % (0.0-2.0); %Eosinophils 4.2 % (0.0-6.0); %Lymphocytes 33.2 % (18.0-47.0); %Monocytes 7.6 % (0.0-10.0); %Neutrophils 53.8 % (40.0-75.0); Hemoglobin 9.5 g/dL (12.0-15.5); Mean Corpuscular HGB CONC 32.8 g/dL (32.0-36.0); Mean Corpuscular Hemoglobin 28.6 pg (27.0-33.0); Mean Corpuscular Volume 87.3 fl (81.6-98.3); Mean Platelet Volume 9.5 fl (7.4-10.4); Platelet Count 308 10x3/uL (150-450); RBC Distribution Width 14.5 % (11.5-14.5); Red Blood Cell (RBC) Count 3.32 10x6/uL (3.90-5.03); White Blood Cell (WBC) Count 5.2 10x3/uL (3.5-10.5)
[2022-07-07 06:31] LABS: Anion Gap 11 mmol/L (10-20); BUN (Urea Nitrogen) 28 mg/dL (9.8-20.1); Calc. Creatinine Clearance 38 mL/min (70-130); Calcium 7.8 mg/dL (7.8-10.44); Carbon Dioxide 18 mmol/L (22-29); Chloride 118 mmol/L (98-107); Estimated GFR 26; Glucose 118 mg/dL (70-105); Potassium 3.8 mmol/L (3.5-5.1); Sodium 143 mmol/L (136-145)
[2022-07-07] MEDS: Calcium Acetate 667 MG CAP PO SCH ×3 (08:42→18:54)
[2022-07-07] MEDS: Sodium Bicarbonate Tab 325 MG TAB PO SCH ×2 (08:42→20:05)
[2022-07-07] MEDS: Aspirin 81 mg Enteric Coated Tablet PO SCH (08:43)
[2022-07-07] MEDS: Amlodipine 10 MG TAB PO SCH (08:43)
[2022-07-07] MEDS: Spironolactone 25 MG TAB PO SCH (08:43)
[2022-07-07] MEDS: Empagliflozin 25 MG TAB PO SCH (08:44)
[2022-07-07] MEDS: Carvedilol 25 MG TAB PO SCH ×2 (08:44→18:40)
[2022-07-07] MEDS: Lisinopril 10 MG TAB PO SCH (08:44)
[2022-07-07] MEDS: Heparin 5,000 UNITS/ML VIAL SC SCH (08:45)
[2022-07-07] MEDS ORDERED: Furosemide 100 MG/10 ML VIAL SLOW IVP SCH (14:00)
[2022-07-07] MEDS: Furosemide 100 MG/10 ML VIAL SLOW IVP SCH (14:52)
[2022-07-07] MEDS ORDERED: Lidocaine 1% (PF) 30 ML VIAL FS SCH (16:00)
[2022-07-07] MEDS: Albumin 25% 25 GM/100 ML BOT IVPB SCH ×2 (18:39→23:16)
[2022-07-07 18:58] LABS: Body Fluid Source Thoracentesis Fluid; Clarity Hazy (Clear); Tube # EDTA
[2022-07-07 18:59] LABS: BF Color Yellow
[2022-07-07 19:03] LABS: Fluid, pH - Pleural Fld Greater than 7.50 (7.60 - 7.66)
[2022-07-07 19:44] LABS: BF Segmented Neutrophils 19 %
[2022-07-07 19:45] LABS: Cell Count Non Hematic 3 %; Lymphocytes 78 %
[2022-07-07] MEDS: Pregabalin 75 MG CAP PO SCH (20:05)
[2022-07-07] MEDS: Lantus 1000 UNITS/10 ML VIAL SC SCH (20:05)
[2022-07-07 23:10] LABS: Fluid, Glucose 163 mg/dL (Not Available); Pleural Fluid, LDH 38 U/L (Not Available)
[2022-07-07 23:11] LABS: Pleural Fluid, Amylase Less than 30 U/L (Not Available); Pleural Fluid, Glucose 166 mg/dL; Pleural Fluid, LDH 38 U/L (Not Available); Pleural Fluid, Protein Less than 1.0 g/dL
[2022-07-08 04:05] LABS: #Eosinphils 0.2 10x3/uL (0.0-0.5); #Monocytes 0.4 10x3/uL (0.0-1.1); #Neutrophils 2.9 10x3/uL (1.5-8.4); %Basophils 0.6 % (0.0-2.0); %Eosinophils 3.8 % (0.0-6.0); %Lymphocytes 31.8 % (18.0-47.0); %Monocytes 7.8 % (0.0-10.0); %Neutrophils 55.6 % (40.0-75.0); Hemoglobin 8.7 g/dL (12.0-15.5); Mean Corpuscular HGB CONC 33.3 g/dL (32.0-36.0); Mean Corpuscular Hemoglobin 28.8 pg (27.0-33.0); Mean Corpuscular Volume 86.4 fl (81.6-98.3); Mean Platelet Volume 9.7 fl (7.4-10.4); Platelet Count 286 10x3/uL (150-450); RBC Distribution Width 14.4 % (11.5-14.5); Red Blood Cell (RBC) Count 3.02 10x6/uL (3.90-5.03); White Blood Cell (WBC) Count 5.3 10x3/uL (3.5-10.5)
[2022-07-08 04:13] LABS: INR-International Normal Ratio 0.9; PTT 30.1 sec (22.0-33.0); Prothrombin Time 9.9 sec (9.5-12.1)
[2022-07-08 04:20] LABS: ALT (SGPT) Less than 6 U/L (8-55); AST (SGOT) 10 U/L (5-34); Albumin 2.5 g/dL (3.5-5.0); Alkaline Phosphatase 40 U/L (40-110); Anion Gap 12 mmol/L (10-20); BUN (Urea Nitrogen) 32 mg/dL (9.8-20.1); Bilirubin, Total 0.2 mg/dL (0.2-1.2); Calc. Creatinine Clearance 36 mL/min (70-130); Calcium 8.1 mg/dL (7.8-10.44); Carbon Dioxide 20 mmol/L (22-29); Chloride 114 mmol/L (98-107); Estimated GFR 25; Globulin 2.3 g/dL (2.4-3.5); Glucose 137 mg/dL (70-105); Potassium 3.5 mmol/L (3.5-5.1); Protein, Total 4.8 g/dL (6.0-8.3); Sodium 142 mmol/L (136-145)
[2022-07-08] MEDS: Furosemide 100 MG/10 ML VIAL SLOW IVP SCH ×2 (05:35→14:58)
[2022-07-08] MEDS: Albumin 25% 25 GM/100 ML BOT IVPB SCH ×4 (05:35→23:36)
[2022-07-08] MEDS: Heparin 5,000 UNITS/ML VIAL SC SCH ×2 (08:33→20:13)
[2022-07-08] MEDS: Empagliflozin 25 MG TAB PO SCH (08:36)
[2022-07-08] MEDS: Aspirin 81 mg Enteric Coated Tablet PO SCH (08:36)
[2022-07-08] MEDS: Carvedilol 25 MG TAB PO SCH ×2 (08:36→17:08)
[2022-07-08] MEDS: Sodium Bicarbonate Tab 325 MG TAB PO SCH ×2 (08:36→20:13)
[2022-07-08] MEDS: Amlodipine 10 MG TAB PO SCH (08:36)
[2022-07-08] MEDS: Spironolactone 25 MG TAB PO SCH (08:36)
[2022-07-08] MEDS: Calcium Acetate 667 MG CAP PO SCH ×3 (09:23→17:08)
[2022-07-08] MEDS: hydrOXYzine 25 MG TAB PO PRN (09:37)
[2022-07-08] MEDS ORDERED: Potassium Chloride 20 MEQ TAB PO SCH (10:00)
[2022-07-08 10:05] LABS: Magnesium 1.8 mg/dL (1.6-2.6)
[2022-07-08 11:31] LABS: Thyroid Stimulating Hormone 2.3755 uIU/mL (0.35-4.94)
[2022-07-08] MEDS: HumaLOG 300 UNITS/3 ML VIAL SC PRN ×2 (11:35→17:08)
[2022-07-08 12:05] LABS: ALV-art Gradient 587.925 mmHg (0-20); Base Excess (BEa) -2.9 mEq/L (-2.0 to +3.0); CO2 Tension 44.7 mmHg (35.0-45.0); Calcium, Ionized (arterial) 1.15 mmol/L (1.12-1.30); Carboxyhemoglobin (COHb) 0.3 gm% (0.0-3.0); Hemoglobin (Hb) 10.8 g/dL (12.0-16.0); O2 Tension (PaO2), arterial 69.2 mmHg (80.0-100.0); Potassium - ABG Lab 3.8 mmol/L (3.70-5.30); Puncture Site LBA; pH, Arterial 7.33 (7.35-7.45)
[2022-07-08] MEDS: Dexmedetomidine In 0.9 % NaCl 400 MCG in Premix Bag 1 BAG IVPB SCH (12:42)
[2022-07-08 14:26] LABS: T4 3.4 ug/dL (4.87-11.72)
[2022-07-08] MEDS: Mometasone/Formoterol 60 PUFF AER INH SCH ×2 (18:30)
[2022-07-08] MEDS: Lantus 1000 UNITS/10 ML VIAL SC SCH (20:13)
[2022-07-08] MEDS: Pregabalin 75 MG CAP PO SCH (20:13)
[2022-07-09] MEDS: Dexmedetomidine In 0.9 % NaCl 400 MCG in Premix Bag 1 BAG IVPB SCH ×3 (00:51→23:06)
[2022-07-09 04:12] LABS: #Eosinphils 0.2 10x3/uL (0.0-0.5); #Monocytes 0.4 10x3/uL (0.0-1.1); #Neutrophils 3.6 10x3/uL (1.5-8.4); %Basophils 0.7 % (0.0-2.0); %Eosinophils 2.9 % (0.0-6.0); %Lymphocytes 26.9 % (18.0-47.0); %Monocytes 7.1 % (0.0-10.0); %Neutrophils 62.1 % (40.0-75.0); Mean Corpuscular Hemoglobin 28.5 pg (27.0-33.0); Mean Corpuscular Volume 86.4 fl (81.6-98.3); Mean Platelet Volume 9.8 fl (7.4-10.4); Platelet Count 281 10x3/uL (150-450); RBC Distribution Width 14.4 % (11.5-14.5); Red Blood Cell (RBC) Count 3.16 10x6/uL (3.90-5.03); White Blood Cell (WBC) Count 5.8 10x3/uL (3.5-10.5)
[2022-07-09 04:37] LABS: ALT (SGPT) 6 U/L (8-55); AST (SGOT) 8 U/L (5-34); Albumin 3.4 g/dL (3.5-5.0); Alkaline Phosphatase 41 U/L (40-110); Anion Gap 12 mmol/L (10-20); BUN (Urea Nitrogen) 35 mg/dL (9.8-20.1); Bilirubin, Total 0.3 mg/dL (0.2-1.2); Calc. Creatinine Clearance 34 mL/min (70-130); Calcium 8.8 mg/dL (7.8-10.44); Carbon Dioxide 22 mmol/L (22-29); Chloride 114 mmol/L (98-107); Estimated GFR 23; Globulin 2.1 g/dL (2.4-3.5); Glucose 171 mg/dL (70-105); Potassium 4.3 mmol/L (3.5-5.1); Protein, Total 5.5 g/dL (6.0-8.3); Sodium 144 mmol/L (136-145)
[2022-07-09] MEDS: Furosemide 100 MG/10 ML VIAL SLOW IVP SCH ×2 (05:40→13:00)
[2022-07-09] MEDS: Albumin 25% 25 GM/100 ML BOT IVPB SCH ×4 (05:40→23:06)
[2022-07-09] MEDS: Mometasone/Formoterol 60 PUFF AER INH SCH ×2 (06:40→18:30)
[2022-07-09] MEDS: Heparin 5,000 UNITS/ML VIAL SC SCH ×2 (08:02→20:58)
[2022-07-09] MEDS: Amlodipine 10 MG TAB PO SCH (08:03)
[2022-07-09] MEDS: Carvedilol 25 MG TAB PO SCH ×2 (08:03→17:16)
[2022-07-09] MEDS: Metolazone 5 MG TAB PO SCH (08:03)
[2022-07-09] MEDS: Sodium Bicarbonate Tab 325 MG TAB PO SCH ×2 (08:03→20:57)
[2022-07-09] MEDS: Empagliflozin 25 MG TAB PO SCH (08:03)
[2022-07-09] MEDS: Spironolactone 25 MG TAB PO SCH (08:03)
[2022-07-09] MEDS: Aspirin 81 mg Enteric Coated Tablet PO SCH (08:03)
[2022-07-09] MEDS: Calcium Acetate 667 MG CAP PO SCH ×3 (08:03→17:15)
[2022-07-09] MEDS ORDERED: Lidocaine 1% (PF) 30 ML VIAL FS SCH (08:30)
[2022-07-09 10:17] LABS: Body Fluid Source Thoracentesis Fluid
[2022-07-09 10:18] LABS: BF Color Yellow; Clarity Hazy (Clear); Tube # EDTA
[2022-07-09 10:28] LABS: Fluid, pH - Pleural Fld Greater than 7.50 (7.60 - 7.66)
[2022-07-09 11:16] LABS: BF Segmented Neutrophils 17 %; Cell Count Non Hematic 15 %; Eosinophils 1 %; Lymphocytes 67 %
[2022-07-09] MEDS: HumaLOG 300 UNITS/3 ML VIAL SC PRN (11:41)
[2022-07-09] MEDS: Lorazepam 2 MG/ML VIAL SLOW IVP PRN (13:49)
[2022-07-09 14:37] LABS: Pleural Fluid, Amylase Less than 30 U/L (Not Available); Pleural Fluid, Glucose 184 mg/dL; Pleural Fluid, LDH 42 U/L (Not Available); Pleural Fluid, Protein Less than 1.0 g/dL
[2022-07-09] MEDS: Pregabalin 75 MG CAP PO SCH (20:57)
[2022-07-09] MEDS: Lantus 1000 UNITS/10 ML VIAL SC SCH (20:58)
[2022-07-10 04:39] LABS: #Basophils 0.1 10x3/uL (0.0-0.2); #Eosinphils 0.1 10x3/uL (0.0-0.5); #Monocytes 0.6 10x3/uL (0.0-1.1); #Neutrophils 4.2 10x3/uL (1.5-8.4); %Basophils 0.8 % (0.0-2.0); %Lymphocytes 23.3 % (18.0-47.0); %Neutrophils 64.6 % (40.0-75.0); Mean Corpuscular HGB CONC 32.3 g/dL (32.0-36.0); Mean Corpuscular Hemoglobin 28.2 pg (27.0-33.0); Mean Corpuscular Volume 87.5 fl (81.6-98.3); Platelet Count 268 10x3/uL (150-450); RBC Distribution Width 14.1 % (11.5-14.5); Red Blood Cell (RBC) Count 3.19 10x6/uL (3.90-5.03); White Blood Cell (WBC) Count 6.6 10x3/uL (3.5-10.5)
[2022-07-10 04:57] LABS: ALT (SGPT) Less than 6 U/L (8-55); AST (SGOT) 8 U/L (5-34); Albumin 3.6 g/dL (3.5-5.0); Alkaline Phosphatase 33 U/L (40-110); Anion Gap 14 mmol/L (10-20); BUN (Urea Nitrogen) 38 mg/dL (9.8-20.1); Bilirubin, Total 0.6 mg/dL (0.2-1.2); Calc. Creatinine Clearance 32 mL/min (70-130); Calcium 8.9 mg/dL (7.8-10.44); Carbon Dioxide 20 mmol/L (22-29); Chloride 114 mmol/L (98-107); Estimated GFR 21; Globulin 2.1 g/dL (2.4-3.5); Glucose 93 mg/dL (70-105); Protein, Total 5.7 g/dL (6.0-8.3); Sodium 144 mmol/L (136-145)
[2022-07-10] MEDS: Furosemide 100 MG/10 ML VIAL SLOW IVP SCH ×2 (06:08→13:17)
[2022-07-10] MEDS: Albumin 25% 25 GM/100 ML BOT IVPB SCH (06:09)
[2022-07-10] MEDS: Heparin 5,000 UNITS/ML VIAL SC SCH ×2 (08:23→21:41)
[2022-07-10] MEDS: Mometasone/Formoterol 60 PUFF AER INH SCH ×2 (08:24→17:32)
[2022-07-10] MEDS: Amlodipine 10 MG TAB PO SCH (08:27)
[2022-07-10] MEDS: Carvedilol 25 MG TAB PO SCH ×2 (08:27→16:39)
[2022-07-10] MEDS: Calcium Acetate 667 MG CAP PO SCH ×3 (08:27→16:35)
[2022-07-10] MEDS: Spironolactone 25 MG TAB PO SCH (08:28)
[2022-07-10] MEDS: Empagliflozin 25 MG TAB PO SCH (08:28)
[2022-07-10] MEDS: Sodium Bicarbonate Tab 325 MG TAB PO SCH ×2 (08:28→21:41)
[2022-07-10] MEDS: Metolazone 5 MG TAB PO SCH (08:28)
[2022-07-10] MEDS: Aspirin 81 mg Enteric Coated Tablet PO SCH (08:28)
[2022-07-10] MEDS: DOBUTamine 500 mg/250 ml 250 ML IVPB SCH (09:39)
[2022-07-10] MEDS: Morphine 2 MG/ML VIAL SLOW IVP PRN (10:01)
[2022-07-10] MEDS: Lorazepam 2 MG/ML VIAL SLOW IVP PRN (10:02)
[2022-07-10] MEDS: Dexmedetomidine In 0.9 % NaCl 400 MCG in Premix Bag 1 BAG IVPB SCH ×2 (12:42→22:25)
[2022-07-10] MEDS: Acetaminophen 325 MG TAB PO PRN (16:39)
[2022-07-10] MEDS: Budesonide 0.5 MG/2 ML NEB NEB SCH (17:30)
[2022-07-10] MEDS ORDERED: Ipratropium Bromide 2.5 ml Neb ONE (17:34)
[2022-07-10] MEDS: Ipratropium/Albuterol 3 ML NEB NEB SCH (17:50)
[2022-07-10] MEDS: Pregabalin 75 MG CAP PO SCH (21:41)
[2022-07-10] MEDS: Lantus 1000 UNITS/10 ML VIAL SC SCH (21:42)
[2022-07-11] MEDS: Ipratropium/Albuterol 3 ML NEB NEB SCH ×4 (01:33→18:53)
[2022-07-11 04:06] LABS: #Basophils 0.1 10x3/uL (0.0-0.2); #Eosinphils 0.2 10x3/uL (0.0-0.5); #Monocytes 0.8 10x3/uL (0.0-1.1); #Neutrophils 4.4 10x3/uL (1.5-8.4); %Basophils 0.7 % (0.0-2.0); %Lymphocytes 26.8 % (18.0-47.0); %Monocytes 10.1 % (0.0-10.0); %Neutrophils 59.3 % (40.0-75.0); Hemoglobin 8.8 g/dL (12.0-15.5); Mean Corpuscular HGB CONC 32.1 g/dL (32.0-36.0); Mean Corpuscular Hemoglobin 28.1 pg (27.0-33.0); Mean Corpuscular Volume 87.5 fl (81.6-98.3); Mean Platelet Volume 10.4 fl (7.4-10.4); Platelet Count 256 10x3/uL (150-450); RBC Distribution Width 13.8 % (11.5-14.5); Red Blood Cell (RBC) Count 3.13 10x6/uL (3.90-5.03); White Blood Cell (WBC) Count 7.5 10x3/uL (3.5-10.5)
[2022-07-11 04:22] LABS: ALT (SGPT) Less than 6 U/L (8-55); AST (SGOT) 10 U/L (5-34); Albumin 3.2 g/dL (3.5-5.0); Alkaline Phosphatase 36 U/L (40-110); Anion Gap 14 mmol/L (10-20); BUN (Urea Nitrogen) 41 mg/dL (9.8-20.1); Bilirubin, Total 0.5 mg/dL (0.2-1.2); Calc. Creatinine Clearance 28 mL/min (70-130); Calcium 8.6 mg/dL (7.8-10.44); Carbon Dioxide 21 mmol/L (22-29); Chloride 110 mmol/L (98-107); Estimated GFR 18; Globulin 2.3 g/dL (2.4-3.5); Glucose 129 mg/dL (70-105); Potassium 3.6 mmol/L (3.5-5.1); Protein, Total 5.5 g/dL (6.0-8.3); Sodium 141 mmol/L (136-145)
[2022-07-11] MEDS: Furosemide 100 MG/10 ML VIAL SLOW IVP SCH ×2 (06:30→09:33)
[2022-07-11] MEDS: DOBUTamine 500 mg/250 ml 250 ML IVPB SCH (06:36)
[2022-07-11] MEDS: Dexmedetomidine In 0.9 % NaCl 400 MCG in Premix Bag 1 BAG IVPB SCH ×2 (06:36→15:34)
[2022-07-11] MEDS: Budesonide 0.5 MG/2 ML NEB NEB SCH ×2 (06:43→19:05)
[2022-07-11] MEDS: Mometasone/Formoterol 60 PUFF AER INH SCH ×2 (06:44→18:53)
[2022-07-11] MEDS: Spironolactone 25 MG TAB PO SCH (08:05)
[2022-07-11] MEDS: Metolazone 5 MG TAB PO SCH (08:05)
[2022-07-11] MEDS: Amlodipine 10 MG TAB PO SCH (08:05)
[2022-07-11] MEDS: Carvedilol 25 MG TAB PO SCH ×2 (08:05→17:40)
[2022-07-11] MEDS: Empagliflozin 25 MG TAB PO SCH (08:05)
[2022-07-11] MEDS: Aspirin 81 mg Enteric Coated Tablet PO SCH (08:05)
[2022-07-11] MEDS: Heparin 5,000 UNITS/ML VIAL SC SCH ×2 (08:06→20:55)
[2022-07-11] MEDS: Sodium Bicarbonate Tab 325 MG TAB PO SCH ×2 (08:06→20:55)
[2022-07-11] MEDS: Calcium Acetate 667 MG CAP PO SCH ×3 (08:06→17:40)
[2022-07-11] MEDS: Albumin 25% 25 GM/100 ML BOT IVPB SCH ×2 (11:50→17:40)
[2022-07-11] MEDS: HumaLOG 300 UNITS/3 ML VIAL SC PRN ×2 (16:56→21:13)
[2022-07-11] MEDS: Pregabalin 75 MG CAP PO SCH (20:54)
[2022-07-11] MEDS: Lantus 1000 UNITS/10 ML VIAL SC SCH (20:55)
[2022-07-11] MEDS: Lorazepam 2 MG/ML VIAL SLOW IVP PRN (21:23)
[2022-07-12] MEDS: Albumin 25% 25 GM/100 ML BOT IVPB SCH ×4 (00:52→17:00)
[2022-07-12] MEDS: Acetaminophen 325 MG TAB PO PRN (01:01)
[2022-07-12] MEDS: Ipratropium/Albuterol 3 ML NEB NEB SCH ×4 (01:43→19:00)
[2022-07-12] MEDS: Dexmedetomidine In 0.9 % NaCl 400 MCG in Premix Bag 1 BAG IVPB SCH ×2 (02:34→10:32)
[2022-07-12] MEDS: DOBUTamine 500 mg/250 ml 250 ML IVPB SCH ×2 (02:35→21:00)
[2022-07-12 03:50] LABS: #Eosinphils 0.2 10x3/uL (0.0-0.5); #Monocytes 0.7 10x3/uL (0.0-1.1); #Neutrophils 5.2 10x3/uL (1.5-8.4); %Basophils 0.4 % (0.0-2.0); %Eosinophils 2.8 % (0.0-6.0); %Lymphocytes 19.2 % (18.0-47.0); %Monocytes 8.8 % (0.0-10.0); %Neutrophils 68.4 % (40.0-75.0); Hemoglobin 8.5 g/dL (12.0-15.5); Mean Corpuscular HGB CONC 33.1 g/dL (32.0-36.0); Mean Corpuscular Hemoglobin 28.3 pg (27.0-33.0); Mean Corpuscular Volume 85.7 fl (81.6-98.3); Mean Platelet Volume 10.3 fl (7.4-10.4); Platelet Count 260 10x3/uL (150-450); RBC Distribution Width 13.4 % (11.5-14.5); White Blood Cell (WBC) Count 7.6 10x3/uL (3.5-10.5)
[2022-07-12 04:03] LABS: ALT (SGPT) Less than 6 U/L (8-55); AST (SGOT) 7 U/L (5-34); Albumin 3.7 g/dL (3.5-5.0); Alkaline Phosphatase 39 U/L (40-110); Anion Gap 14 mmol/L (10-20); BUN (Urea Nitrogen) 44 mg/dL (9.8-20.1); Bilirubin, Total 0.5 mg/dL (0.2-1.2); Calc. Creatinine Clearance 25 mL/min (70-130); Calcium 8.9 mg/dL (7.8-10.44); Carbon Dioxide 22 mmol/L (22-29); Chloride 107 mmol/L (98-107); Estimated GFR 18; Globulin 2.1 g/dL (2.4-3.5); Glucose 145 mg/dL (70-105); Potassium 3.3 mmol/L (3.5-5.1); Protein, Total 5.8 g/dL (6.0-8.3); Sodium 140 mmol/L (136-145)
[2022-07-12] MEDS: Budesonide 0.5 MG/2 ML NEB NEB SCH ×2 (07:39→18:30)
[2022-07-12] MEDS: Mometasone/Formoterol 60 PUFF AER INH SCH ×2 (07:58→18:30)
[2022-07-12] MEDS ORDERED: Potassium Chloride 20 MEQ TAB PO SCH (08:00)
[2022-07-12] MEDS: Calcium Acetate 667 MG CAP PO SCH ×3 (08:22→17:00)
[2022-07-12] MEDS: Sodium Bicarbonate Tab 325 MG TAB PO SCH ×2 (08:22→20:30)
[2022-07-12] MEDS: Spironolactone 25 MG TAB PO SCH (08:22)
[2022-07-12] MEDS: Aspirin 81 mg Enteric Coated Tablet PO SCH (08:22)
[2022-07-12] MEDS: Carvedilol 25 MG TAB PO SCH ×2 (08:23→17:00)
[2022-07-12] MEDS: Amlodipine 10 MG TAB PO SCH (08:23)
[2022-07-12] MEDS: Furosemide 100 MG/10 ML VIAL SLOW IVP SCH (08:23)
[2022-07-12] MEDS: Empagliflozin 25 MG TAB PO SCH (08:23)
[2022-07-12] MEDS: Heparin 5,000 UNITS/ML VIAL SC SCH ×2 (08:24→20:34)
[2022-07-12 08:52] LABS: Magnesium 1.7 mg/dL (1.6-2.6)
[2022-07-12] MEDS: HumaLOG 300 UNITS/3 ML VIAL SC PRN ×3 (11:52→21:04)
[2022-07-12] MEDS: Pregabalin 75 MG CAP PO SCH (20:34)
[2022-07-12] MEDS: Lantus 1000 UNITS/10 ML VIAL SC SCH (21:02)
[2022-07-12] MEDS: Morphine 2 MG/ML VIAL SLOW IVP PRN (23:09)
[2022-07-12] MEDS: Lorazepam 2 MG/ML VIAL SLOW IVP PRN (23:22)
[2022-07-13] MEDS: Ipratropium/Albuterol 3 ML NEB NEB SCH ×4 (01:50→20:30)
[2022-07-13] MEDS: Albumin 25% 25 GM/100 ML BOT IVPB SCH ×5 (02:59→23:34)
[2022-07-13 03:56] LABS: #Eosinphils 0.2 10x3/uL (0.0-0.5); #Monocytes 0.6 10x3/uL (0.0-1.1); #Neutrophils 4.2 10x3/uL (1.5-8.4); %Basophils 0.5 % (0.0-2.0); %Eosinophils 3.5 % (0.0-6.0); %Lymphocytes 19.7 % (18.0-47.0); %Monocytes 9.5 % (0.0-10.0); %Neutrophils 66.5 % (40.0-75.0); Hemoglobin 7.8 g/dL (12.0-15.5); Mean Corpuscular HGB CONC 32.5 g/dL (32.0-36.0); Mean Platelet Volume 10.2 fl (7.4-10.4); Platelet Count 247 10x3/uL (150-450); RBC Distribution Width 13.2 % (11.5-14.5); Red Blood Cell (RBC) Count 2.79 10x6/uL (3.90-5.03); White Blood Cell (WBC) Count 6.3 10x3/uL (3.5-10.5)
[2022-07-13 04:08] LABS: ALT (SGPT) Less than 6 U/L (8-55); AST (SGOT) 8 U/L (5-34); Albumin 3.8 g/dL (3.5-5.0); Alkaline Phosphatase 37 U/L (40-110); Anion Gap 16 mmol/L (10-20); BUN (Urea Nitrogen) 47 mg/dL (9.8-20.1); Bilirubin, Total 0.5 mg/dL (0.2-1.2); Calc. Creatinine Clearance 23 mL/min (70-130); Carbon Dioxide 21 mmol/L (22-29); Chloride 108 mmol/L (98-107); Estimated GFR 16; Globulin 2.1 g/dL (2.4-3.5); Glucose 148 mg/dL (70-105); Potassium 3.6 mmol/L (3.5-5.1); Protein, Total 5.9 g/dL (6.0-8.3); Sodium 141 mmol/L (136-145)
[2022-07-13] MEDS: Dexmedetomidine In 0.9 % NaCl 400 MCG in Premix Bag 1 BAG IVPB SCH (05:58)
[2022-07-13] MEDS: Budesonide 0.5 MG/2 ML NEB NEB SCH ×2 (08:13→20:20)
[2022-07-13] MEDS: Mometasone/Formoterol 60 PUFF AER INH SCH ×2 (08:15→18:30)
[2022-07-13] MEDS: Heparin 5,000 UNITS/ML VIAL SC SCH ×2 (08:33→21:57)
[2022-07-13] MEDS: Furosemide 100 MG/10 ML VIAL SLOW IVP SCH (08:33)
[2022-07-13] MEDS: Calcium Acetate 667 MG CAP PO SCH ×3 (08:33→17:01)
[2022-07-13] MEDS: Amlodipine 10 MG TAB PO SCH (08:34)
[2022-07-13] MEDS: Aspirin 81 mg Enteric Coated Tablet PO SCH (08:34)
[2022-07-13] MEDS: Spironolactone 25 MG TAB PO SCH (08:34)
[2022-07-13] MEDS: Carvedilol 25 MG TAB PO SCH ×2 (08:34→17:05)
[2022-07-13] MEDS: Sodium Bicarbonate Tab 325 MG TAB PO SCH ×2 (08:34→21:59)
[2022-07-13] MEDS: Empagliflozin 25 MG TAB PO SCH (08:34)
[2022-07-13] MEDS: Acetaminophen 325 MG TAB PO PRN (11:45)
[2022-07-13] MEDS: HumaLOG 300 UNITS/3 ML VIAL SC PRN ×3 (11:47→21:57)
[2022-07-13] MEDS: Morphine 2 MG/ML VIAL SLOW IVP PRN ×2 (13:20→22:10)
[2022-07-13] MEDS ORDERED: EPOETIN ALFA-EPBX (ESRD) 10,000 UNIT/ML VIAL SC SCH (14:00)
[2022-07-13] MEDS: Furosemide 40 MG/4 ML VIAL SLOW IVP SCH (14:06)
[2022-07-13] MEDS: DOBUTamine 500 mg/250 ml 250 ML IVPB SCH (17:05)
[2022-07-13] MEDS: Pregabalin 75 MG CAP PO SCH (21:56)
[2022-07-13] MEDS: Lantus 1000 UNITS/10 ML VIAL SC SCH (21:57)
[2022-07-13] MEDS: Lorazepam 2 MG/ML VIAL SLOW IVP PRN (22:10)
[2022-07-14] MEDS: Ipratropium/Albuterol 3 ML NEB NEB SCH ×4 (01:20→19:20)
[2022-07-14] MEDS: Dexmedetomidine In 0.9 % NaCl 400 MCG in Premix Bag 1 BAG IVPB SCH ×2 (04:21→23:43)
[2022-07-14 04:54] LABS: #Eosinphils 0.2 10x3/uL (0.0-0.5); #Monocytes 0.8 10x3/uL (0.0-1.1); #Neutrophils 3.1 10x3/uL (1.5-8.4); %Basophils 0.5 % (0.0-2.0); %Eosinophils 3.5 % (0.0-6.0); %Lymphocytes 27.6 % (18.0-47.0); %Monocytes 14.2 % (0.0-10.0); Hemoglobin 8.7 g/dL (12.0-15.5); Mean Corpuscular HGB CONC 32.7 g/dL (32.0-36.0); Mean Corpuscular Hemoglobin 28.4 pg (27.0-33.0); Mean Corpuscular Volume 86.9 fl (81.6-98.3); Mean Platelet Volume 10.5 fl (7.4-10.4); Platelet Count 253 10x3/uL (150-450); RBC Distribution Width 13.6 % (11.5-14.5); Red Blood Cell (RBC) Count 3.06 10x6/uL (3.90-5.03); White Blood Cell (WBC) Count 5.8 10x3/uL (3.5-10.5)
[2022-07-14 05:07] LABS: ALT (SGPT) Less than 6 U/L (8-55); AST (SGOT) 8 U/L (5-34); Alkaline Phosphatase 35 U/L (40-110); Anion Gap 14 mmol/L (10-20); BUN (Urea Nitrogen) 44 mg/dL (9.8-20.1); Bilirubin, Total 0.6 mg/dL (0.2-1.2); Calc. Creatinine Clearance 22 mL/min (70-130); Calcium 8.8 mg/dL (7.8-10.44); Carbon Dioxide 23 mmol/L (22-29); Chloride 106 mmol/L (98-107); Estimated GFR 14; Globulin 1.9 g/dL (2.4-3.5); Glucose 151 mg/dL (70-105); Potassium 3.4 mmol/L (3.5-5.1); Protein, Total 5.9 g/dL (6.0-8.3); Sodium 140 mmol/L (136-145)
[2022-07-14] MEDS: Albumin 25% 25 GM/100 ML BOT IVPB SCH (05:18)
[2022-07-14] MEDS: Budesonide 0.5 MG/2 ML NEB NEB SCH ×2 (07:30→19:15)
[2022-07-14] MEDS: Furosemide 40 MG/4 ML VIAL SLOW IVP SCH ×2 (07:34→13:20)
[2022-07-14] MEDS: Mometasone/Formoterol 60 PUFF AER INH SCH ×2 (08:42→18:30)
[2022-07-14] MEDS: Empagliflozin 25 MG TAB PO SCH (08:49)
[2022-07-14] MEDS: Amlodipine 10 MG TAB PO SCH (08:49)
[2022-07-14] MEDS: Aspirin 81 mg Enteric Coated Tablet PO SCH (08:50)
[2022-07-14] MEDS: Sodium Bicarbonate Tab 325 MG TAB PO SCH ×2 (08:50→20:02)
[2022-07-14] MEDS: Heparin 5,000 UNITS/ML VIAL SC SCH ×2 (08:50→20:02)
[2022-07-14] MEDS: Carvedilol 25 MG TAB PO SCH ×2 (08:50→16:53)
[2022-07-14] MEDS: Spironolactone 25 MG TAB PO SCH (08:50)
[2022-07-14] MEDS: Calcium Acetate 667 MG CAP PO SCH ×3 (08:52→16:52)
[2022-07-14 09:14] LABS: Fungus Stain Final report (.)
[2022-07-14] MEDS: DOBUTamine 500 mg/250 ml 250 ML IVPB SCH (13:19)
[2022-07-14] MEDS ORDERED: Midazolam HCl 2 mg/2 ml Vial ONE (14:39)
[2022-07-14] MEDS ORDERED: Fentanyl 100 MCG/2 ML VIAL ONE (14:39)
[2022-07-14] MEDS ORDERED: EPINEPHrine 1 MG/ML AMP ONE (14:47)
[2022-07-14] MEDS ORDERED: Bupivacaine 0.25% HCL 30 ML VIAL ONE (14:47)
[2022-07-14 19:12] LABS: HBSAg Index 0.19 S/CO (0-0.99); Hep B Surf Ag Non-Reactive S/CO (NonReactive)
[2022-07-14] MEDS: Pregabalin 75 MG CAP PO SCH (20:02)
[2022-07-14] MEDS: Lantus 1000 UNITS/10 ML VIAL SC SCH (20:04)
[2022-07-14] MEDS: Acetaminophen 325 MG TAB PO PRN (20:23)
[2022-07-14 23:39] LABS: HBSAB Concentration Less than 8.00 mIU/mL; Hep B Core Total Ab Non-Reactive (NonReactive); Hep B Core Total Index 0.02 S/CO (0-0.79); Hep B Surf AB Non-Reactive (NonReactive); Hep C IgG Ab Non-Reactive (NonReactive); Hep C Index 0.03 S/CO (0-0.79)
[2022-07-15] MEDS: Lorazepam 2 MG/ML VIAL SLOW IVP PRN ×3 (00:16→22:33)
[2022-07-15] MEDS: Ipratropium/Albuterol 3 ML NEB NEB SCH ×5 (02:00→18:56)
[2022-07-15 04:29] LABS: ALT (SGPT) Less than 6 U/L (8-55); AST (SGOT) 8 U/L (5-34); Albumin 3.7 g/dL (3.5-5.0); Alkaline Phosphatase 38 U/L (40-110); Anion Gap 13 mmol/L (10-20); BUN (Urea Nitrogen) 40 mg/dL (9.8-20.1); Bilirubin, Total 0.4 mg/dL (0.2-1.2); Calc. Creatinine Clearance 23 mL/min (70-130); Calcium 8.7 mg/dL (7.8-10.44); Carbon Dioxide 25 mmol/L (22-29); Chloride 105 mmol/L (98-107); Estimated GFR 15; Globulin 2.1 g/dL (2.4-3.5); Glucose 158 mg/dL (70-105); Potassium 3.2 mmol/L (3.5-5.1); Protein, Total 5.8 g/dL (6.0-8.3); Sodium 140 mmol/L (136-145)
[2022-07-15 04:31] LABS: #Basophils 0.1 10x3/uL (0.0-0.2); #Eosinphils 0.2 10x3/uL (0.0-0.5); #Monocytes 1.1 10x3/uL (0.0-1.1); #Neutrophils 4.8 10x3/uL (1.5-8.4); %Basophils 0.6 % (0.0-2.0); %Eosinophils 2.6 % (0.0-6.0); %Lymphocytes 22.9 % (18.0-47.0); %Monocytes 13.1 % (0.0-10.0); %Neutrophils 60.2 % (40.0-75.0); Hemoglobin 9.1 g/dL (12.0-15.5); Mean Corpuscular HGB CONC 32.3 g/dL (32.0-36.0); Mean Corpuscular Hemoglobin 27.9 pg (27.0-33.0); Mean Corpuscular Volume 86.5 fl (81.6-98.3); Mean Platelet Volume 10.4 fl (7.4-10.4); Platelet Count 265 10x3/uL (150-450); RBC Distribution Width 13.3 % (11.5-14.5); Red Blood Cell (RBC) Count 3.26 10x6/uL (3.90-5.03)
[2022-07-15] MEDS: Furosemide 40 MG/4 ML VIAL SLOW IVP SCH (06:26)
[2022-07-15] MEDS: Budesonide 0.5 MG/2 ML NEB NEB SCH ×2 (07:21→19:00)
[2022-07-15] MEDS: Mometasone/Formoterol 60 PUFF AER INH SCH ×2 (08:10→19:02)
[2022-07-15] MEDS: Amlodipine 10 MG TAB PO SCH ×2 (08:44→08:59)
[2022-07-15] MEDS: Heparin 5,000 UNITS/ML VIAL SC SCH ×2 (08:44→21:07)
[2022-07-15] MEDS: Carvedilol 25 MG TAB PO SCH ×3 (08:44→18:30)
[2022-07-15] MEDS: Empagliflozin 25 MG TAB PO SCH (08:44)
[2022-07-15] MEDS: Aspirin 81 mg Enteric Coated Tablet PO SCH (08:44)
[2022-07-15] MEDS: Calcium Acetate 667 MG CAP PO SCH ×4 (08:45→18:30)
[2022-07-15] MEDS ORDERED: DOBUTamine 500 mg/250 ml 250 ML IVPB SCH (11:15)
[2022-07-15 11:16] LABS: Fungus Stain Final report (.)
[2022-07-15] MEDS: HumaLOG 300 UNITS/3 ML VIAL SC PRN (12:09)
[2022-07-15] MEDS: Morphine 2 MG/ML VIAL SLOW IVP PRN ×2 (12:36→23:33)
[2022-07-15] MEDS: Lantus 1000 UNITS/10 ML VIAL SC SCH (21:08)
[2022-07-15] MEDS: Pregabalin 75 MG CAP PO SCH (21:08)
[2022-07-15] MEDS: Acetaminophen 325 MG TAB PO PRN (23:33)
[2022-07-16] MEDS: Dexmedetomidine In 0.9 % NaCl 400 MCG in Premix Bag 1 BAG IVPB SCH (00:02)
[2022-07-16] MEDS: Ipratropium/Albuterol 3 ML NEB NEB SCH ×4 (01:39→19:10)
[2022-07-16 04:08] LABS: #Basophils 0.1 10x3/uL (0.0-0.2); #Eosinphils 0.2 10x3/uL (0.0-0.5); #Neutrophils 4.8 10x3/uL (1.5-8.4); %Basophils 0.8 % (0.0-2.0); %Eosinophils 2.9 % (0.0-6.0); %Monocytes 12.4 % (0.0-10.0); %Neutrophils 60.1 % (40.0-75.0); Hemoglobin 9.4 g/dL (12.0-15.5); Mean Corpuscular HGB CONC 33.1 g/dL (32.0-36.0); Mean Corpuscular Hemoglobin 28.5 pg (27.0-33.0); Mean Corpuscular Volume 86.1 fl (81.6-98.3); Platelet Count 275 10x3/uL (150-450); RBC Distribution Width 13.2 % (11.5-14.5)
[2022-07-16 04:23] LABS: ALT (SGPT) Less than 6 U/L (8-55); AST (SGOT) 8 U/L (5-34); Albumin 3.6 g/dL (3.5-5.0); Alkaline Phosphatase 41 U/L (40-110); Anion Gap 13 mmol/L (10-20); BUN (Urea Nitrogen) 31 mg/dL (9.8-20.1); Bilirubin, Total 0.4 mg/dL (0.2-1.2); Calc. Creatinine Clearance 28 mL/min (70-130); Carbon Dioxide 26 mmol/L (22-29); Chloride 105 mmol/L (98-107); Estimated GFR 19; Globulin 2.3 g/dL (2.4-3.5); Glucose 153 mg/dL (70-105); Potassium 3.3 mmol/L (3.5-5.1); Protein, Total 5.9 g/dL (6.0-8.3); Sodium 141 mmol/L (136-145)
[2022-07-16] MEDS: Budesonide 0.5 MG/2 ML NEB NEB SCH ×2 (07:10→19:05)
[2022-07-16] MEDS: Mometasone/Formoterol 60 PUFF AER INH SCH ×2 (07:56→19:05)
[2022-07-16] MEDS: Carvedilol 25 MG TAB PO SCH ×2 (08:55→18:13)
[2022-07-16] MEDS: Empagliflozin 25 MG TAB PO SCH (08:55)
[2022-07-16] MEDS: Calcium Acetate 667 MG CAP PO SCH ×3 (08:55→15:56)
[2022-07-16] MEDS: Aspirin 81 mg Enteric Coated Tablet PO SCH (08:55)
[2022-07-16] MEDS: Heparin 5,000 UNITS/ML VIAL SC SCH ×2 (08:55→20:14)
[2022-07-16] MEDS ORDERED: QUEtiapine 25 MG TAB PO SCH (10:30)
[2022-07-16] MEDS: Pregabalin 75 MG CAP PO SCH (20:13)
[2022-07-16] MEDS: QUEtiapine 25 MG TAB PO SCH (20:13)
[2022-07-16] MEDS: Lantus 1000 UNITS/10 ML VIAL SC SCH (20:13)
[2022-07-16] MEDS ORDERED: Heparin 10,000 UNITS/ 10 ML VIAL SLOW IVP PRN (22:58)
[2022-07-16] MEDS ORDERED: Bisacodyl 10 MG SUPP PR SCH (23:15)
[2022-07-16] MEDS: Acetaminophen 325 MG TAB PO PRN (23:27)
[2022-07-17] MEDS: Ipratropium/Albuterol 3 ML NEB NEB SCH ×4 (03:05→19:30)
[2022-07-17 03:26] LABS: #Basophils 0.1 10x3/uL (0.0-0.2); #Eosinphils 0.2 10x3/uL (0.0-0.5); %Basophils 0.6 % (0.0-2.0); %Eosinophils 2.6 % (0.0-6.0); %Lymphocytes 22.2 % (18.0-47.0); %Monocytes 11.7 % (0.0-10.0); Hemoglobin 9.5 g/dL (12.0-15.5); Mean Corpuscular HGB CONC 33.7 g/dL (32.0-36.0); Mean Corpuscular Hemoglobin 28.9 pg (27.0-33.0); Mean Corpuscular Volume 85.7 fl (81.6-98.3); Platelet Count 273 10x3/uL (150-450); RBC Distribution Width 13.2 % (11.5-14.5); Red Blood Cell (RBC) Count 3.29 10x6/uL (3.90-5.03); White Blood Cell (WBC) Count 8.1 10x3/uL (3.5-10.5)
[2022-07-17] MEDS: Lorazepam 2 MG/ML VIAL SLOW IVP PRN ×2 (03:30→21:35)
[2022-07-17 03:48] LABS: ALT (SGPT) Less than 6 U/L (8-55); AST (SGOT) 9 U/L (5-34); Albumin 3.5 g/dL (3.5-5.0); Alkaline Phosphatase 44 U/L (40-110); Anion Gap 12 mmol/L (10-20); BUN (Urea Nitrogen) 15 mg/dL (9.8-20.1); Bilirubin, Total 0.4 mg/dL (0.2-1.2); Calc. Creatinine Clearance 48 mL/min (70-130); Calcium 8.9 mg/dL (7.8-10.44); Carbon Dioxide 27 mmol/L (22-29); Chloride 103 mmol/L (98-107); Estimated GFR 36; Globulin 2.5 g/dL (2.4-3.5); Glucose 132 mg/dL (70-105); Potassium 3.2 mmol/L (3.5-5.1); Sodium 139 mmol/L (136-145)
[2022-07-17] MEDS: Morphine 2 MG/ML VIAL SLOW IVP PRN (04:09)
[2022-07-17] MEDS ORDERED: Potassium Chloride 20 MEQ TAB PO SCH (06:30)
[2022-07-17] MEDS: Budesonide 0.5 MG/2 ML NEB NEB SCH ×2 (08:25→19:25)
[2022-07-17] MEDS: Mometasone/Formoterol 60 PUFF AER INH SCH ×2 (08:35→19:25)
[2022-07-17] MEDS: Heparin 5,000 UNITS/ML VIAL SC SCH ×2 (09:02→20:32)
[2022-07-17] MEDS: Empagliflozin 25 MG TAB PO SCH (09:03)
[2022-07-17] MEDS: Aspirin 81 mg Enteric Coated Tablet PO SCH (09:03)
[2022-07-17] MEDS: Calcium Acetate 667 MG CAP PO SCH ×3 (09:03→17:56)
[2022-07-17] MEDS: Carvedilol 25 MG TAB PO SCH ×2 (09:03→17:56)
[2022-07-17] MEDS: QUEtiapine 25 MG TAB PO SCH (09:03)
[2022-07-17] MEDS ORDERED: Bisacodyl 10 MG SUPP PR PRN (11:10)
[2022-07-17] MEDS ORDERED: Artificial Tear Sol 15 ML BOT EA EYE PRN (11:10)
[2022-07-17] MEDS ORDERED: Moisturizing Cream (Eucerin) 113 GM JAR TOP PRN (11:10)
[2022-07-17] MEDS ORDERED: diphenhydrAMINE 50 MG/ML VIAL IVP PRN (11:10)
[2022-07-17] MEDS ORDERED: diphenhydrAMINE 25 MG CAP PO PRN (11:10)
[2022-07-17] MEDS ORDERED: Cepastat Lozenges 1 LOZ PO PRN (11:10)
[2022-07-17] MEDS ORDERED: Acetaminophen 650 MG Suppository PR PRN (11:10)
[2022-07-17] MEDS ORDERED: QUEtiapine 25 MG TAB PO SCH (11:12)
[2022-07-17] MEDS ORDERED: Polyethylene Glycol 3350 17 GM Packet PO SCH (12:00)
[2022-07-17] MEDS: Acetaminophen 325 MG TAB PO PRN (18:50)
[2022-07-17] MEDS ORDERED: Vancomycin HCl 1 GM in Sodium Chloride 0.9% 250 ML 250 ML IVPB SCH (19:15)
[2022-07-17] MEDS ORDERED: Cefepime 1 GM in Sodium Chloride 0.9% 100 ML IVPB SCH (19:15)
[2022-07-17] MEDS: QUEtiapine 100 MG TAB PO SCH (20:32)
[2022-07-17] MEDS: Pregabalin 75 MG CAP PO SCH (20:32)
[2022-07-17] MEDS: Lantus 1000 UNITS/10 ML VIAL SC SCH (20:32)
[2022-07-18] MEDS: Ipratropium/Albuterol 3 ML NEB NEB SCH ×4 (01:00→18:53)
[2022-07-18 04:09] LABS: #Basophils 0.1 10x3/uL (0.0-0.2); #Eosinphils 0.2 10x3/uL (0.0-0.5); #Monocytes 0.8 10x3/uL (0.0-1.1); #Neutrophils 5.4 10x3/uL (1.5-8.4); %Basophils 0.8 % (0.0-2.0); %Eosinophils 2.6 % (0.0-6.0); %Lymphocytes 23.5 % (18.0-47.0); %Monocytes 9.7 % (0.0-10.0); %Neutrophils 62.7 % (40.0-75.0); Hemoglobin 9.1 g/dL (12.0-15.5); Mean Corpuscular HGB CONC 32.4 g/dL (32.0-36.0); Mean Corpuscular Volume 86.5 fl (81.6-98.3); Mean Platelet Volume 9.9 fl (7.4-10.4); Platelet Count 277 10x3/uL (150-450); RBC Distribution Width 13.4 % (11.5-14.5); Red Blood Cell (RBC) Count 3.25 10x6/uL (3.90-5.03); White Blood Cell (WBC) Count 8.6 10x3/uL (3.5-10.5)
[2022-07-18 04:38] LABS: Anion Gap 11 mmol/L (10-20); BUN (Urea Nitrogen) 20 mg/dL (9.8-20.1); Calc. Creatinine Clearance 31 mL/min (70-130); Calcium 8.9 mg/dL (7.8-10.44); Carbon Dioxide 28 mmol/L (22-29); Chloride 106 mmol/L (98-107); Estimated GFR 23; Glucose 133 mg/dL (70-105); Potassium 3.7 mmol/L (3.5-5.1); Sodium 141 mmol/L (136-145)
[2022-07-18] MEDS: Budesonide 0.5 MG/2 ML NEB NEB SCH ×2 (07:24→19:03)
[2022-07-18] MEDS: Mometasone/Formoterol 60 PUFF AER INH SCH ×2 (07:30→18:59)
[2022-07-18] MEDS: Empagliflozin 25 MG TAB PO SCH (08:27)
[2022-07-18] MEDS: QUEtiapine 25 MG TAB PO SCH (08:27)
[2022-07-18] MEDS: Heparin 5,000 UNITS/ML VIAL SC SCH ×2 (08:27→20:40)
[2022-07-18] MEDS: Carvedilol 25 MG TAB PO SCH ×2 (08:27→16:54)
[2022-07-18] MEDS: Aspirin 81 mg Enteric Coated Tablet PO SCH (08:27)
[2022-07-18] MEDS: Polyethylene Glycol 3350 17 GM Packet PO SCH (08:33)
[2022-07-18] MEDS: Calcium Acetate 667 MG CAP PO SCH ×3 (08:34→16:54)
[2022-07-18] MEDS ORDERED: Vancomycin Diaylsis Sliding Scale (Wt 71-99) FS SCH (12:00)
[2022-07-18 12:48] LABS: Vancomycin, Random 10.4 ug/mL (See Comment)
[2022-07-18] MEDS: Cefepime 0.5 GM, Admixture Fee 1 EACH in Sodium Chloride 0.9% 100 ML IVPB SCH (14:55)
[2022-07-18] MEDS: HumaLOG 300 UNITS/3 ML VIAL SC PRN (16:34)
[2022-07-18] MEDS ORDERED: Vancomycin HCl 750 MG in Sodium Chloride 0.9% 250 ML 250 ML IVPB SCH (17:00)
[2022-07-18] MEDS: Lantus 1000 UNITS/10 ML VIAL SC SCH (20:40)
[2022-07-18] MEDS: Pregabalin 75 MG CAP PO SCH (20:40)
[2022-07-18] MEDS: QUEtiapine 100 MG TAB PO SCH (20:40)
[2022-07-18] MEDS: Morphine 2 MG/ML VIAL SLOW IVP PRN (23:30)
[2022-07-18] MEDS: Lorazepam 2 MG/ML VIAL SLOW IVP PRN (23:31)
[2022-07-19] MEDS: Ipratropium/Albuterol 3 ML NEB NEB SCH ×4 (01:22→22:10)
[2022-07-19 04:21] LABS: #Basophils 0.1 10x3/uL (0.0-0.2); #Eosinphils 0.2 10x3/uL (0.0-0.5); #Neutrophils 6.7 10x3/uL (1.5-8.4); %Basophils 0.6 % (0.0-2.0); %Eosinophils 2.2 % (0.0-6.0); %Lymphocytes 21.6 % (18.0-47.0); %Monocytes 9.6 % (0.0-10.0); %Neutrophils 65.2 % (40.0-75.0); Hemoglobin 8.9 g/dL (12.0-15.5); Mean Corpuscular HGB CONC 32.2 g/dL (32.0-36.0); Mean Corpuscular Hemoglobin 28.2 pg (27.0-33.0); Mean Corpuscular Volume 87.3 fl (81.6-98.3); Mean Platelet Volume 9.9 fl (7.4-10.4); Platelet Count 290 10x3/uL (150-450); RBC Distribution Width 13.6 % (11.5-14.5); Red Blood Cell (RBC) Count 3.16 10x6/uL (3.90-5.03); White Blood Cell (WBC) Count 10.2 10x3/uL (3.5-10.5)
[2022-07-19 04:29] LABS: Anion Gap 13 mmol/L (10-20); BUN (Urea Nitrogen) 28 mg/dL (9.8-20.1); Calc. Creatinine Clearance 27 mL/min (70-130); Calcium 8.8 mg/dL (7.8-10.44); Carbon Dioxide 27 mmol/L (22-29); Chloride 106 mmol/L (98-107); Estimated GFR 19; Glucose 130 mg/dL (70-105); Sodium 142 mmol/L (136-145)
[2022-07-19] MEDS: Budesonide 0.5 MG/2 ML NEB NEB SCH ×2 (08:10→22:05)
[2022-07-19] MEDS: Mometasone/Formoterol 60 PUFF AER INH SCH ×2 (08:18→18:30)
[2022-07-19] MEDS: Polyethylene Glycol 3350 17 GM Packet PO SCH (09:46)
[2022-07-19] MEDS: Aspirin 81 mg Enteric Coated Tablet PO SCH (09:46)
[2022-07-19] MEDS: QUEtiapine 25 MG TAB PO SCH (09:46)
[2022-07-19] MEDS: Carvedilol 25 MG TAB PO SCH ×2 (09:46→16:38)
[2022-07-19] MEDS: Empagliflozin 25 MG TAB PO SCH (09:46)
[2022-07-19] MEDS: Calcium Acetate 667 MG CAP PO SCH ×3 (09:46→16:38)
[2022-07-19] MEDS: Heparin 5,000 UNITS/ML VIAL SC SCH ×2 (09:46→21:47)
[2022-07-19] MEDS ORDERED: Lorazepam 0.5 MG TAB PO PRN (13:27)
[2022-07-19] MEDS ORDERED: HYDROcodone/Acetaminophen 5/325 mg Tablet PO PRN (13:49)
[2022-07-19] MEDS: Heparin 10,000 UNITS/ 10 ML VIAL FS PRN (13:57)
[2022-07-19] MEDS ORDERED: Vancomycin HCl 1 GM in Sodium Chloride 0.9% 250 ML 250 ML IVPB SCH (17:00)
[2022-07-19] MEDS: Cefepime 0.5 GM, Admixture Fee 1 EACH in Sodium Chloride 0.9% 100 ML IVPB SCH (17:02)
[2022-07-19] MEDS: Lantus 1000 UNITS/10 ML VIAL SC SCH (21:45)
[2022-07-19] MEDS: Pregabalin 75 MG CAP PO SCH (21:47)
[2022-07-19] MEDS: QUEtiapine 100 MG TAB PO SCH (21:47)
[2022-07-20] MEDS: Ipratropium/Albuterol 3 ML NEB NEB SCH ×4 (02:25→20:35)
[2022-07-20 04:22] LABS: #Basophils 0.1 10x3/uL (0.0-0.2); #Eosinphils 0.3 10x3/uL (0.0-0.5); #Neutrophils 6.1 10x3/uL (1.5-8.4); %Basophils 0.9 % (0.0-2.0); %Eosinophils 2.9 % (0.0-6.0); %Lymphocytes 22.9 % (18.0-47.0); %Neutrophils 61.9 % (40.0-75.0); Mean Corpuscular Hemoglobin 28.3 pg (27.0-33.0); Mean Corpuscular Volume 88.4 fl (81.6-98.3); Platelet Count 329 10x3/uL (150-450); RBC Distribution Width 13.3 % (11.5-14.5); Red Blood Cell (RBC) Count 3.18 10x6/uL (3.90-5.03); White Blood Cell (WBC) Count 9.9 10x3/uL (3.5-10.5)
[2022-07-20 04:40] LABS: Anion Gap 11 mmol/L (10-20); BUN (Urea Nitrogen) 15 mg/dL (9.8-20.1); Calc. Creatinine Clearance 40 mL/min (70-130); Calcium 8.7 mg/dL (7.8-10.44); Carbon Dioxide 28 mmol/L (22-29); Chloride 107 mmol/L (98-107); Estimated GFR 29; Glucose 177 mg/dL (70-105); Potassium 3.9 mmol/L (3.5-5.1); Sodium 142 mmol/L (136-145)
[2022-07-20] MEDS: HumaLOG 300 UNITS/3 ML VIAL SC PRN ×2 (05:39→16:36)
[2022-07-20] MEDS: Budesonide 0.5 MG/2 ML NEB NEB SCH ×2 (07:12→20:30)
[2022-07-20] MEDS: Mometasone/Formoterol 60 PUFF AER INH SCH (07:13)
[2022-07-20] MEDS: Calcium Acetate 667 MG CAP PO SCH ×3 (08:28→16:37)
[2022-07-20] MEDS: Heparin 5,000 UNITS/ML VIAL SC SCH ×2 (08:28→20:43)
[2022-07-20] MEDS: Carvedilol 25 MG TAB PO SCH ×2 (08:29→17:03)
[2022-07-20] MEDS: Aspirin 81 mg Enteric Coated Tablet PO SCH (08:29)
[2022-07-20] MEDS: Polyethylene Glycol 3350 17 GM Packet PO SCH (08:29)
[2022-07-20] MEDS: Empagliflozin 25 MG TAB PO SCH (08:29)
[2022-07-20] MEDS ORDERED: Lorazepam 2 MG/ML VIAL SLOW IVP PRN (11:00)
[2022-07-20] MEDS ORDERED: Vancomycin HCl 500 MG in Sodium Chloride 0.9% 100 ML IVPB SCH (17:00)
[2022-07-20] MEDS: Heparin 10,000 UNITS/ 10 ML VIAL FS PRN (17:29)
[2022-07-20] MEDS: QUEtiapine 25 MG TAB PO SCH (20:42)
[2022-07-20] MEDS: cloNIDine 0.1 MG TAB PO SCH (20:42)
[2022-07-20] MEDS: Docusate 100 MG CAP PO SCH (20:42)
[2022-07-20] MEDS: Pregabalin 75 MG CAP PO SCH (20:43)
[2022-07-20] MEDS: Sertraline 25 MG TAB PO SCH (20:43)
[2022-07-20] MEDS: Lantus 1000 UNITS/10 ML VIAL SC SCH (20:43)
[2022-07-21] MEDS: Cefepime 0.5 GM, Admixture Fee 1 EACH in Sodium Chloride 0.9% 100 ML IVPB SCH ×2 (01:08)
[2022-07-21] MEDS: Ipratropium/Albuterol 3 ML NEB NEB SCH ×4 (01:25→19:50)
[2022-07-21 04:53] LABS: #Basophils 0.1 10x3/uL (0.0-0.2); #Eosinphils 0.3 10x3/uL (0.0-0.5); #Monocytes 0.9 10x3/uL (0.0-1.1); #Neutrophils 6.1 10x3/uL (1.5-8.4); %Basophils 0.6 % (0.0-2.0); %Eosinophils 2.8 % (0.0-6.0); %Lymphocytes 24.3 % (18.0-47.0); %Monocytes 9.2 % (0.0-10.0); %Neutrophils 61.8 % (40.0-75.0); Hemoglobin 9.2 g/dL (12.0-15.5); Mean Corpuscular HGB CONC 31.9 g/dL (32.0-36.0); Mean Corpuscular Hemoglobin 27.9 pg (27.0-33.0); Mean Corpuscular Volume 87.3 fl (81.6-98.3); Mean Platelet Volume 9.9 fl (7.4-10.4); Platelet Count 320 10x3/uL (150-450); RBC Distribution Width 13.3 % (11.5-14.5); White Blood Cell (WBC) Count 9.9 10x3/uL (3.5-10.5)
[2022-07-21 04:57] LABS: Anion Gap 10 mmol/L (10-20); BUN (Urea Nitrogen) 10 mg/dL (9.8-20.1); Calc. Creatinine Clearance 50 mL/min (70-130); Calcium 8.7 mg/dL (7.8-10.44); Carbon Dioxide 29 mmol/L (22-29); Chloride 105 mmol/L (98-107); Estimated GFR 44; Glucose 165 mg/dL (70-105); Potassium 3.6 mmol/L (3.5-5.1); Sodium 140 mmol/L (136-145)
[2022-07-21] MEDS: HumaLOG 300 UNITS/3 ML VIAL SC PRN ×3 (05:59→17:01)
[2022-07-21] MEDS: Budesonide 0.5 MG/2 ML NEB NEB SCH ×2 (07:05→19:45)
[2022-07-21 07:29] LABS: Vancomycin, Random 13.7 ug/mL (See Comment)
[2022-07-21] MEDS: Calcium Acetate 667 MG CAP PO SCH ×3 (09:12→15:36)
[2022-07-21] MEDS: Empagliflozin 25 MG TAB PO SCH (09:13)
[2022-07-21] MEDS: Aspirin 81 mg Enteric Coated Tablet PO SCH (09:13)
[2022-07-21] MEDS: Heparin 5,000 UNITS/ML VIAL SC SCH ×2 (09:13→21:34)
[2022-07-21] MEDS: Polyethylene Glycol 3350 17 GM Packet PO SCH ×2 (09:14→17:03)
[2022-07-21] MEDS: Carvedilol 25 MG TAB PO SCH ×2 (09:14→17:00)
[2022-07-21] MEDS: Docusate 100 MG CAP PO SCH ×2 (09:14→21:34)
[2022-07-21] MEDS: Acetaminophen 325 MG TAB PO PRN (11:07)
[2022-07-21] MEDS: Lantus 1000 UNITS/10 ML VIAL SC SCH (21:33)
[2022-07-21] MEDS: cloNIDine 0.1 MG TAB PO SCH (21:34)
[2022-07-21] MEDS: QUEtiapine 25 MG TAB PO SCH (21:34)
[2022-07-21] MEDS: Pregabalin 75 MG CAP PO SCH (21:34)
[2022-07-21] MEDS: Sertraline 25 MG TAB PO SCH (21:35)
[2022-07-22] MEDS: Cefepime 0.5 GM, Admixture Fee 1 EACH in Sodium Chloride 0.9% 100 ML IVPB SCH (00:32)
[2022-07-22] MEDS: Ipratropium/Albuterol 3 ML NEB NEB SCH ×4 (01:25→20:00)
[2022-07-22 03:51] LABS: #Basophils 0.1 10x3/uL (0.0-0.2); #Eosinphils 0.3 10x3/uL (0.0-0.5); #Monocytes 0.9 10x3/uL (0.0-1.1); #Neutrophils 6.2 10x3/uL (1.5-8.4); %Eosinophils 3.2 % (0.0-6.0); %Neutrophils 60.8 % (40.0-75.0); Hemoglobin 9.3 g/dL (12.0-15.5); Mean Corpuscular Hemoglobin 27.7 pg (27.0-33.0); Mean Corpuscular Volume 86.6 fl (81.6-98.3); Mean Platelet Volume 9.5 fl (7.4-10.4); Platelet Count 364 10x3/uL (150-450); RBC Distribution Width 13.3 % (11.5-14.5); Red Blood Cell (RBC) Count 3.36 10x6/uL (3.90-5.03); White Blood Cell (WBC) Count 10.2 10x3/uL (3.5-10.5)
[2022-07-22 04:08] LABS: Anion Gap 11 mmol/L (10-20); BUN (Urea Nitrogen) 16 mg/dL (9.8-20.1); Calc. Creatinine Clearance 33 mL/min (70-130); Calcium 8.8 mg/dL (7.8-10.44); Carbon Dioxide 28 mmol/L (22-29); Chloride 107 mmol/L (98-107); Estimated GFR 27; Glucose 133 mg/dL (70-105); Potassium 3.8 mmol/L (3.5-5.1); Sodium 142 mmol/L (136-145)
[2022-07-22] MEDS: Budesonide 0.5 MG/2 ML NEB NEB SCH ×2 (07:42→19:55)
[2022-07-22 07:57] LABS: Vancomycin, Random 11.3 ug/mL (See Comment)
[2022-07-22] MEDS: Heparin 5,000 UNITS/ML VIAL SC SCH ×2 (08:34→21:47)
[2022-07-22] MEDS: Docusate 100 MG CAP PO SCH ×2 (08:39→21:45)
[2022-07-22] MEDS: Carvedilol 25 MG TAB PO SCH ×2 (08:39→21:44)
[2022-07-22] MEDS: Empagliflozin 25 MG TAB PO SCH (08:39)
[2022-07-22] MEDS: Calcium Acetate 667 MG CAP PO SCH ×3 (08:39→21:44)
[2022-07-22] MEDS: Aspirin 81 mg Enteric Coated Tablet PO SCH (08:39)
[2022-07-22] MEDS ORDERED: Heparin 10,000 UNITS/ 10 ML VIAL FS PRN (10:15)
[2022-07-22] MEDS: Polyethylene Glycol 3350 17 GM Packet PO SCH (10:45)
[2022-07-22] MEDS ORDERED: Sterile Water 10 ML VIAL IVP SCH (11:00)
[2022-07-22] MEDS ORDERED: Activase 2 MG VIAL CATH SCH (11:00)
[2022-07-22] MEDS ORDERED: Vancomycin HCl 750 MG in Sodium Chloride 0.9% 250 ML 250 ML IVPB SCH (17:00)
[2022-07-22] MEDS: HumaLOG 300 UNITS/3 ML VIAL SC PRN (17:42)
[2022-07-22] MEDS: Sertraline 25 MG TAB PO SCH (21:45)
[2022-07-22] MEDS: cloNIDine 0.1 MG TAB PO SCH (21:45)
[2022-07-22] MEDS: Pregabalin 75 MG CAP PO SCH (21:45)
[2022-07-22] MEDS: QUEtiapine 25 MG TAB PO SCH (21:46)
[2022-07-22] MEDS: Lantus 1000 UNITS/10 ML VIAL SC SCH (21:46)
[2022-07-23] MEDS: Ipratropium/Albuterol 3 ML NEB NEB SCH ×2 (01:35→06:54)
[2022-07-23 03:55] LABS: #Basophils 0.1 10x3/uL (0.0-0.2); #Eosinphils 0.3 10x3/uL (0.0-0.5); #Monocytes 0.9 10x3/uL (0.0-1.1); #Neutrophils 7.6 10x3/uL (1.5-8.4); %Basophils 0.8 % (0.0-2.0); %Eosinophils 2.7 % (0.0-6.0); %Lymphocytes 19.6 % (18.0-47.0); %Monocytes 8.2 % (0.0-10.0); %Neutrophils 67.3 % (40.0-75.0); Hemoglobin 9.7 g/dL (12.0-15.5); Mean Corpuscular HGB CONC 32.3 g/dL (32.0-36.0); Mean Corpuscular Hemoglobin 27.7 pg (27.0-33.0); Mean Corpuscular Volume 85.7 fl (81.6-98.3); Mean Platelet Volume 9.7 fl (7.4-10.4); Platelet Count 374 10x3/uL (150-450); RBC Distribution Width 13.2 % (11.5-14.5); White Blood Cell (WBC) Count 11.3 10x3/uL (3.5-10.5)
[2022-07-23 04:08] LABS: Anion Gap 9 mmol/L (10-20); BUN (Urea Nitrogen) 8 mg/dL (9.8-20.1); Calc. Creatinine Clearance 52 mL/min (70-130); Calcium 8.8 mg/dL (7.8-10.44); Carbon Dioxide 29 mmol/L (22-29); Chloride 102 mmol/L (98-107); Estimated GFR 46; Glucose 234 mg/dL (70-105); Potassium 3.4 mmol/L (3.5-5.1); Sodium 137 mmol/L (136-145)
[2022-07-23 06:18] VITALS: BMI 26.2
[2022-07-23] MEDS: Budesonide 0.5 MG/2 ML NEB NEB SCH (07:00)
[2022-07-23 07:23] VITALS: TEMP 98
[2022-07-23] MEDS: Heparin 5,000 UNITS/ML VIAL SC SCH (08:27)
[2022-07-23] MEDS: Docusate 100 MG CAP PO SCH (08:29)
[2022-07-23] MEDS: Aspirin 81 mg Enteric Coated Tablet PO SCH (08:29)
[2022-07-23] MEDS: Empagliflozin 25 MG TAB PO SCH (08:29)
[2022-07-23] MEDS: Carvedilol 25 MG TAB PO SCH (08:29)
[2022-07-23] MEDS: Calcium Acetate 667 MG CAP PO SCH (08:30)
[2022-07-23] MEDS ORDERED: AMOXicillin 250 MG CAP PO SCH (09:00)
[2022-07-23 13:14] VITALS: BP 127/70
[2022-07-26 02:36] LABS: QuantiFERON-TB Gold Plus Negative (Negative)
== END 2022-07-23 12:00 | DRG 673 ==
LOC: CSHERS 13:56 → CSHTELE 17:55 → OBSVTOIN 07-06 15:57 → CSHIMCU 07-07 16:50
PROVIDERS: ADMIT Family Medicine; ATTEND Internal Medicine
PROC: 30233J1 Transfusion of Nonautologous Serum Albumin into Peripheral Vein, Percutaneous Approach (ICD-10-PCS; 2022-07-06)
PROC: 0W9B3ZZ Drainage of Left Pleural Cavity, Percutaneous Approach (ICD-10-PCS; principal; 2022-07-07)
PROC: 5A09557 Assistance with Respiratory Ventilation, Greater than 96 Consecutive Hours, Continuous Positive Airway Pressure (ICD-10-PCS; 2022-07-08)
PROC: 0W993ZZ Drainage of Right Pleural Cavity, Percutaneous Approach (ICD-10-PCS; 2022-07-09)
PROC: 30233N1 Transfusion of Nonautologous Red Blood Cells into Peripheral Vein, Percutaneous Approach (ICD-10-PCS; 2022-07-13)
PROC: 0JH63XZ Insertion of Tunneled Vascular Access Device into Chest Subcutaneous Tissue and Fascia, Percutaneous Approach (ICD-10-PCS; 2022-07-14)
PROC: 02HV33Z Insertion of Infusion Device into Superior Vena Cava, Percutaneous Approach (ICD-10-PCS; 2022-07-14)
PROC: B5181ZA Fluoroscopy of Superior Vena Cava using Low Osmolar Contrast, Guidance (ICD-10-PCS; 2022-07-14)
PROC: B548ZZA Ultrasonography of Superior Vena Cava, Guidance (ICD-10-PCS; 2022-07-14)
PROC: 5A1D70Z Performance of Urinary Filtration, Intermittent, Less than 6 Hours Per Day (ICD-10-PCS; 2022-07-14)
PROC: 5A1D70Z Performance of Urinary Filtration, Intermittent, Less than 6 Hours Per Day (ICD-10-PCS; 2022-07-15)
PROC: 5A1D70Z Performance of Urinary Filtration, Intermittent, Less than 6 Hours Per Day (ICD-10-PCS; 2022-07-16)
PROC: 5A1D70Z Performance of Urinary Filtration, Intermittent, Less than 6 Hours Per Day (ICD-10-PCS; 2022-07-19)
PROC: 5A1D70Z Performance of Urinary Filtration, Intermittent, Less than 6 Hours Per Day (ICD-10-PCS; 2022-07-20)
PROC: 5A1D70Z Performance of Urinary Filtration, Intermittent, Less than 6 Hours Per Day (ICD-10-PCS; 2022-07-22)
DX: N17.0 Acute kidney failure with tubular necrosis (principal); I50.43 Acute on chronic combined systolic (congestive) and diastolic (congestive) heart failure; J96.01 Acute respiratory failure with hypoxia; J90 Pleural effusion, not elsewhere classified; I24.8 Other forms of acute ischemic heart disease; E87.20 Acidosis, unspecified; J98.11 Atelectasis; I13.2 Hypertensive heart and chronic kidney disease with heart failure and with stage 5 chronic kidney disease, or end stage renal disease; N05.9 Unspecified nephritic syndrome with unspecified morphologic changes; N25.81 Secondary hyperparathyroidism of renal origin; G47.33 Obstructive sleep apnea (adult) (pediatric); F41.9 Anxiety disorder, unspecified; E11.22 Type 2 diabetes mellitus with diabetic chronic kidney disease; N18.30 Chronic kidney disease, stage 3 unspecified; E83.39 Other disorders of phosphorus metabolism; E11.42 Type 2 diabetes mellitus with diabetic polyneuropathy; D63.1 Anemia in chronic kidney disease; E87.6 Hypokalemia; N18.6 End stage renal disease; R33.9 Retention of urine, unspecified; Z20.822 Contact with and (suspected) exposure to COVID-19; Z79.4 Long term (current) use of insulin; Z79.899 Other long term (current) drug therapy; Z79.51 Long term (current) use of inhaled steroids; Z90.710 Acquired absence of both cervix and uterus; Z98.890 Other specified postprocedural states; Z87.891 Personal history of nicotine dependence; Z91.14 Patient's other noncompliance with medication regimen; Z91.190 Patient's noncompliance with other medical treatment and regimen due to financial hardship
CPT/HCPCS: 36415; 36416; 36430; 36600; 71045; 76770; 80048; 80053; 80202; 81001; 82150; 82553; 82570; 82805; 82945; 83615; 83735; 83880; 83970; 84100; 84145; 84156; 84157; 84436; 84443; 84484; 85025; 85610; 85730; 86480; 86704; 86850; 86900; 86901; 87040; 87070; 87077; 87086; 87116; 87186; 87205; 87206; 87811; 88112; 88305; 89051; 90935; 93005; 93306; 94640; 94660; 94760; 94762; 96372; 96374; 96375; 96376; 97139; C1752; G0257; G0378; J0171; J0692; J0696; J1250; J1642; J1644; J1815; J1940; J2001; J2060; J2250; J2272; J2405; J2997; J3010; J3370; J3490; J7050; J7611; J7620; J7626; P9016; P9047; Q5105; S0020; U0002

== ENCOUNTER 2022-08-23 20:08 | Inpatient (IN) | payer BC ==
[2022-08-23 20:51] LABS: #Basophils 0.1 10x3/uL (0.0-0.2); #Eosinphils 0.2 10x3/uL (0.0-0.5); #Monocytes 0.3 10x3/uL (0.0-1.1); #Neutrophils 4.8 10x3/uL (1.5-8.4); %Basophils 1.1 % (0.0-2.0); %Eosinophils 3.2 % (0.0-6.0); %Lymphocytes 24.7 % (18.0-47.0); %Monocytes 4.4 % (0.0-10.0); %Neutrophils 66.5 % (40.0-75.0); Hemoglobin 12.3 g/dL (12.0-15.5); Mean Corpuscular HGB CONC 31.8 g/dL (32.0-36.0); Mean Corpuscular Hemoglobin 27.6 pg (27.0-33.0); Mean Corpuscular Volume 86.8 fl (81.6-98.3); Mean Platelet Volume 9.9 fl (7.4-10.4); Platelet Count 303 10x3/uL (150-450); RBC Distribution Width 14.5 % (11.5-14.5); Red Blood Cell (RBC) Count 4.46 10x6/uL (3.90-5.03); White Blood Cell (WBC) Count 7.2 10x3/uL (3.5-10.5)
[2022-08-23 21:04] LABS: ALT (SGPT) 8 U/L (8-55); AST (SGOT) 11 U/L (5-34); Albumin 2.6 g/dL (3.5-5.0); Alkaline Phosphatase 60 U/L (40-110); Anion Gap 12 mmol/L (10-20); BUN (Urea Nitrogen) 26 mg/dL (9.8-20.1); Bilirubin, Total 0.2 mg/dL (0.2-1.2); Calc. Creatinine Clearance 0 mL/min (70-130); Carbon Dioxide 21 mmol/L (22-29); Chloride 110 mmol/L (98-107); Estimated GFR 25; Globulin 2.9 g/dL (2.4-3.5); Glucose 198 mg/dL (70-105); Potassium 4.4 mmol/L (3.5-5.1); Protein, Total 5.5 g/dL (6.0-8.3); Sodium 139 mmol/L (136-145)
[2022-08-23 21:30] LABS: SARS-CoV-2 NAA Rapid Test Not Detected (NotDetected)
[2022-08-23] MEDS ORDERED: Melatonin 3 MG TAB PO PRN (22:42)
[2022-08-23] MEDS ORDERED: Furosemide 100 MG/10 ML VIAL SLOW IVP SCH (22:45)
[2022-08-23] MEDS ORDERED: hydrOXYzine Pamoate 25 mg Capsule PO PRN (22:52)
[2022-08-23] MEDS ORDERED: Nitroglycerin 2% Ointment 1 INCH/1 GM Packet TOP SCH (23:00)
[2022-08-24 00:05] LABS: Troponin I 0.015 ng/mL (< 0.028)
[2022-08-24 03:03] LABS: #Basophils 0.1 10x3/uL (0.0-0.2); #Eosinphils 0.3 10x3/uL (0.0-0.5); #Monocytes 0.4 10x3/uL (0.0-1.1); #Neutrophils 4.8 10x3/uL (1.5-8.4); %Eosinophils 3.5 % (0.0-6.0); %Lymphocytes 27.2 % (18.0-47.0); %Monocytes 5.7 % (0.0-10.0); %Neutrophils 62.3 % (40.0-75.0); Hemoglobin 11.7 g/dL (12.0-15.5); Mean Corpuscular HGB CONC 31.7 g/dL (32.0-36.0); Mean Corpuscular Hemoglobin 27.3 pg (27.0-33.0); Mean Platelet Volume 9.9 fl (7.4-10.4); Platelet Count 307 10x3/uL (150-450); RBC Distribution Width 14.6 % (11.5-14.5); Red Blood Cell (RBC) Count 4.29 10x6/uL (3.90-5.03); White Blood Cell (WBC) Count 7.7 10x3/uL (3.5-10.5)
[2022-08-24 03:22] LABS: Anion Gap 12 mmol/L (10-20); BUN (Urea Nitrogen) 26 mg/dL (9.8-20.1); Calc. Creatinine Clearance 0 mL/min (70-130); Carbon Dioxide 21 mmol/L (22-29); Chloride 112 mmol/L (98-107); Estimated GFR 26; Glucose 125 mg/dL (70-105); Phosphorus 5.5 mg/dL (2.3-4.7); Potassium 4.3 mmol/L (3.5-5.1); Sodium 141 mmol/L (136-145)
[2022-08-24] MEDS ORDERED: Nitroglycerin 2% Ointment 1 INCH/1 GM Packet TOP SCH (06:00)
[2022-08-24] MEDS: Furosemide 100 MG/10 ML VIAL SLOW IVP SCH ×2 (08:05→15:10)
[2022-08-24] MEDS ORDERED: hydrALAZINE 25 MG TAB ONE ×2 (08:07→14:20)
[2022-08-24] MEDS: Empagliflozin 10 MG TAB PO SCH (08:30)
[2022-08-24] MEDS: Heparin 5,000 UNITS/ML VIAL SC SCH ×3 (08:38→22:17)
[2022-08-24] MEDS: hydrALAZINE 25 MG TAB PO SCH ×3 (08:38→22:16)
[2022-08-24] MEDS: Sodium Bicarbonate Tab 325 MG TAB PO SCH ×3 (08:39→22:16)
[2022-08-24] MEDS: Nitroglycerin 2% Ointment 1 INCH/1 GM Packet TOP SCH ×2 (08:39→18:38)
[2022-08-24] MEDS: Metolazone 5 MG TAB PO SCH (09:45)
[2022-08-24] MEDS: Albumin 25% 25 GM/100 ML BOT IVPB SCH ×3 (11:51→22:17)
[2022-08-24] MEDS ORDERED: Sevelamer Carbonate 800 MG TAB PO SCH (12:00)
[2022-08-24] MEDS ORDERED: Heparin 5,000 UNITS/ML VIAL ONE (14:19)
[2022-08-24] MEDS ORDERED: Furosemide 100 MG/10 ML VIAL ONE (14:20)
[2022-08-24 17:35] VITALS: BMI 25.7
[2022-08-24] MEDS: Rosuvastatin 20 MG TAB PO SCH (22:16)
[2022-08-24] MEDS ORDERED: Metolazone 5 MG TAB PO SCH (22:45)
[2022-08-25] MEDS: Nitroglycerin 2% Ointment 1 INCH/1 GM Packet TOP SCH ×3 (02:32→18:02)
[2022-08-25 04:58] LABS: Hemoglobin 11.1 g/dL (12.0-15.5); Mean Corpuscular HGB CONC 32.7 g/dL (32.0-36.0); Mean Corpuscular Hemoglobin 27.9 pg (27.0-33.0); Mean Corpuscular Volume 85.2 fl (81.6-98.3); Platelet Count 285 10x3/uL (150-450); RBC Distribution Width 14.3 % (11.5-14.5); Red Blood Cell (RBC) Count 3.98 10x6/uL (3.90-5.03); White Blood Cell (WBC) Count 6.9 10x3/uL (3.5-10.5)
[2022-08-25 05:23] LABS: ALT (SGPT) Less than 6 U/L (8-55); AST (SGOT) 8 U/L (5-34); Albumin 3.1 g/dL (3.5-5.0); Alkaline Phosphatase 50 U/L (40-110); Anion Gap 15 mmol/L (10-20); BUN (Urea Nitrogen) 25 mg/dL (9.8-20.1); Bilirubin, Total 0.3 mg/dL (0.2-1.2); Calc. Creatinine Clearance 32 mL/min (70-130); Calcium 8.7 mg/dL (7.8-10.44); Carbon Dioxide 22 mmol/L (22-29); Chloride 109 mmol/L (98-107); Estimated GFR 28; Globulin 2.6 g/dL (2.4-3.5); Glucose 109 mg/dL (70-105); Phosphorus 5.2 mg/dL (2.3-4.7); Potassium 3.6 mmol/L (3.5-5.1); Protein, Total 5.7 g/dL (6.0-8.3); Sodium 142 mmol/L (136-145)
[2022-08-25] MEDS: Albumin 25% 25 GM/100 ML BOT IVPB SCH ×3 (06:32→18:02)
[2022-08-25] MEDS: Furosemide 100 MG/10 ML VIAL SLOW IVP SCH ×2 (06:32→15:34)
[2022-08-25] MEDS: Metolazone 5 MG TAB PO SCH (09:11)
[2022-08-25] MEDS: Sodium Bicarbonate Tab 325 MG TAB PO SCH ×3 (09:12→21:08)
[2022-08-25] MEDS: Sevelamer Carbonate 800 MG TAB PO SCH ×3 (09:12→18:02)
[2022-08-25] MEDS: hydrALAZINE 25 MG TAB PO SCH ×3 (09:12→21:08)
[2022-08-25] MEDS: Empagliflozin 10 MG TAB PO SCH (09:12)
[2022-08-25] MEDS: Heparin 5,000 UNITS/ML VIAL SC SCH ×3 (09:18→21:09)
[2022-08-25] MEDS: Rosuvastatin 20 MG TAB PO SCH (21:07)
[2022-08-25] MEDS: Melatonin 3 MG TAB PO SCH (21:08)
[2022-08-25] MEDS: hydrOXYzine 25 MG TAB PO SCH (21:09)
[2022-08-26] MEDS: Albumin 25% 25 GM/100 ML BOT IVPB SCH ×2 (00:24→06:12)
[2022-08-26] MEDS: Nitroglycerin 2% Ointment 1 INCH/1 GM Packet TOP SCH ×3 (01:15→14:08)
[2022-08-26] MEDS: Furosemide 100 MG/10 ML VIAL SLOW IVP SCH (06:11)
[2022-08-26 07:07] LABS: Anion Gap 15 mmol/L (10-20); BUN (Urea Nitrogen) 24 mg/dL (9.8-20.1); Calc. Creatinine Clearance 31 mL/min (70-130); Carbon Dioxide 22 mmol/L (22-29); Chloride 108 mmol/L (98-107); Estimated GFR 26; Glucose 106 mg/dL (70-105); Potassium 3.3 mmol/L (3.5-5.1); Sodium 142 mmol/L (136-145)
[2022-08-26] MEDS: hydrALAZINE 25 MG TAB PO SCH ×3 (09:42→22:13)
[2022-08-26] MEDS: Potassium Chloride 20 MEQ TAB PO SCH (09:42)
[2022-08-26] MEDS: Heparin 5,000 UNITS/ML VIAL SC SCH ×3 (09:42→22:14)
[2022-08-26] MEDS: Metolazone 5 MG TAB PO SCH (09:43)
[2022-08-26] MEDS: Sodium Bicarbonate Tab 325 MG TAB PO SCH ×3 (09:43→22:14)
[2022-08-26] MEDS: Sevelamer Carbonate 800 MG TAB PO SCH ×3 (09:46→16:20)
[2022-08-26] MEDS: Empagliflozin 10 MG TAB PO SCH (09:46)
[2022-08-26] MEDS: Furosemide 40 MG TAB PO SCH (13:55)
[2022-08-26] MEDS: hydrOXYzine 25 MG TAB PO SCH (22:13)
[2022-08-26] MEDS: Melatonin 3 MG TAB PO SCH (22:13)
[2022-08-26] MEDS: Rosuvastatin 20 MG TAB PO SCH (22:13)
[2022-08-27] MEDS: Nitroglycerin 2% Ointment 1 INCH/1 GM Packet TOP SCH ×3 (02:16→17:45)
[2022-08-27 05:26] LABS: #Basophils 0.1 10x3/uL (0.0-0.2); #Eosinphils 0.2 10x3/uL (0.0-0.5); #Monocytes 0.5 10x3/uL (0.0-1.1); #Neutrophils 4.2 10x3/uL (1.5-8.4); %Basophils 0.9 % (0.0-2.0); %Lymphocytes 28.3 % (18.0-47.0); %Monocytes 7.2 % (0.0-10.0); %Neutrophils 60.5 % (40.0-75.0); Hemoglobin 11.3 g/dL (12.0-15.5); Mean Corpuscular HGB CONC 32.3 g/dL (32.0-36.0); Mean Corpuscular Hemoglobin 27.5 pg (27.0-33.0); Mean Corpuscular Volume 85.2 fl (81.6-98.3); Mean Platelet Volume 10.1 fl (7.4-10.4); Platelet Count 269 10x3/uL (150-450); RBC Distribution Width 14.1 % (11.5-14.5); Red Blood Cell (RBC) Count 4.11 10x6/uL (3.90-5.03)
[2022-08-27 05:37] LABS: Anion Gap 13 mmol/L (10-20); BUN (Urea Nitrogen) 31 mg/dL (9.8-20.1); Calc. Creatinine Clearance 26 mL/min (70-130); Calcium 8.9 mg/dL (7.8-10.44); Carbon Dioxide 27 mmol/L (22-29); Chloride 105 mmol/L (98-107); Estimated GFR 21; Glucose 130 mg/dL (70-105); Potassium 3.3 mmol/L (3.5-5.1); Sodium 142 mmol/L (136-145)
[2022-08-27] MEDS: Furosemide 40 MG TAB PO SCH ×2 (06:17→15:59)
[2022-08-27] MEDS: Heparin 5,000 UNITS/ML VIAL SC SCH ×3 (09:11→21:37)
[2022-08-27] MEDS: Sodium Bicarbonate Tab 325 MG TAB PO SCH ×3 (09:18→21:37)
[2022-08-27] MEDS: hydrALAZINE 25 MG TAB PO SCH ×3 (09:19→21:37)
[2022-08-27] MEDS: Empagliflozin 10 MG TAB PO SCH (09:20)
[2022-08-27] MEDS: Metolazone 5 MG TAB PO SCH (09:20)
[2022-08-27] MEDS: Potassium Chloride 20 MEQ TAB PO SCH (09:20)
[2022-08-27] MEDS: Sevelamer Carbonate 800 MG TAB PO SCH ×3 (09:20→16:00)
[2022-08-27] MEDS ORDERED: Potassium Chloride 20 MEQ TAB PO SCH (11:00)
[2022-08-27] MEDS: Melatonin 3 MG TAB PO SCH (21:37)
[2022-08-27] MEDS: hydrOXYzine 25 MG TAB PO SCH (21:37)
[2022-08-27] MEDS: Rosuvastatin 20 MG TAB PO SCH (21:38)
[2022-08-28] MEDS: Nitroglycerin 2% Ointment 1 INCH/1 GM Packet TOP SCH ×3 (02:54→17:25)
[2022-08-28 04:51] LABS: #Basophils 0.1 10x3/uL (0.0-0.2); #Eosinphils 0.3 10x3/uL (0.0-0.5); #Monocytes 0.5 10x3/uL (0.0-1.1); #Neutrophils 3.8 10x3/uL (1.5-8.4); %Lymphocytes 32.6 % (18.0-47.0); %Monocytes 6.8 % (0.0-10.0); %Neutrophils 55.5 % (40.0-75.0); Mean Corpuscular HGB CONC 31.9 g/dL (32.0-36.0); Mean Corpuscular Volume 84.6 fl (81.6-98.3); Mean Platelet Volume 10.3 fl (7.4-10.4); Platelet Count 266 10x3/uL (150-450); RBC Distribution Width 14.1 % (11.5-14.5); Red Blood Cell (RBC) Count 4.08 10x6/uL (3.90-5.03); White Blood Cell (WBC) Count 6.8 10x3/uL (3.5-10.5)
[2022-08-28 05:00] LABS: Anion Gap 13 mmol/L (10-20); BUN (Urea Nitrogen) 33 mg/dL (9.8-20.1); Calc. Creatinine Clearance 26 mL/min (70-130); Calcium 8.5 mg/dL (7.8-10.44); Carbon Dioxide 25 mmol/L (22-29); Chloride 106 mmol/L (98-107); Estimated GFR 21; Glucose 135 mg/dL (70-105); Magnesium 1.9 mg/dL (1.6-2.6); Potassium 3.8 mmol/L (3.5-5.1); Sodium 140 mmol/L (136-145)
[2022-08-28] MEDS: Furosemide 40 MG TAB PO SCH ×2 (06:19→13:57)
[2022-08-28] MEDS: Sevelamer Carbonate 800 MG TAB PO SCH ×3 (09:35→17:24)
[2022-08-28] MEDS: Potassium Chloride 20 MEQ TAB PO SCH (09:35)
[2022-08-28] MEDS: Metolazone 5 MG TAB PO SCH (09:35)
[2022-08-28] MEDS: hydrALAZINE 25 MG TAB PO SCH ×3 (09:35→21:00)
[2022-08-28] MEDS: Empagliflozin 10 MG TAB PO SCH (09:35)
[2022-08-28] MEDS: Sodium Bicarbonate Tab 325 MG TAB PO SCH ×3 (09:36→21:01)
[2022-08-28] MEDS: Heparin 5,000 UNITS/ML VIAL SC SCH ×3 (09:37→20:59)
[2022-08-28] MEDS: hydrOXYzine 25 MG TAB PO SCH (21:00)
[2022-08-28] MEDS: Rosuvastatin 20 MG TAB PO SCH (21:01)
[2022-08-28] MEDS: Melatonin 3 MG TAB PO SCH (21:01)
[2022-08-29] MEDS: Nitroglycerin 2% Ointment 1 INCH/1 GM Packet TOP SCH ×3 (02:42→14:25)
[2022-08-29 05:17] LABS: ALT (SGPT) 8 U/L (8-55); AST (SGOT) 9 U/L (5-34); Albumin 3.5 g/dL (3.5-5.0); Alkaline Phosphatase 44 U/L (40-110); Anion Gap 15 mmol/L (10-20); BUN (Urea Nitrogen) 33 mg/dL (9.8-20.1); Bilirubin, Total 0.4 mg/dL (0.2-1.2); Calc. Creatinine Clearance 24 mL/min (70-130); Calcium 9.4 mg/dL (7.8-10.44); Carbon Dioxide 28 mmol/L (22-29); Chloride 101 mmol/L (98-107); Estimated GFR 20; Glucose 138 mg/dL (70-105); Potassium 3.9 mmol/L (3.5-5.1); Protein, Total 6.5 g/dL (6.0-8.3); Sodium 140 mmol/L (136-145)
[2022-08-29] MEDS: Furosemide 40 MG TAB PO SCH (05:36)
[2022-08-29] MEDS: Sevelamer Carbonate 800 MG TAB PO SCH ×3 (08:27→14:18)
[2022-08-29] MEDS: Potassium Chloride 20 MEQ TAB PO SCH (08:27)
[2022-08-29] MEDS: hydrALAZINE 25 MG TAB PO SCH (08:27)
[2022-08-29] MEDS: Metolazone 5 MG TAB PO SCH (08:27)
[2022-08-29] MEDS: Sodium Bicarbonate Tab 325 MG TAB PO SCH ×3 (08:27→21:20)
[2022-08-29] MEDS: Heparin 5,000 UNITS/ML VIAL SC SCH ×3 (08:28→21:21)
[2022-08-29] MEDS: Empagliflozin 10 MG TAB PO SCH (08:30)
[2022-08-29] MEDS: Melatonin 3 MG TAB PO SCH (21:20)
[2022-08-29] MEDS: hydrOXYzine 25 MG TAB PO SCH (21:20)
[2022-08-29] MEDS: Rosuvastatin 20 MG TAB PO SCH (21:20)
[2022-08-30] MEDS: Nitroglycerin 2% Ointment 1 INCH/1 GM Packet TOP SCH (03:04)
[2022-08-30 05:06] LABS: #Basophils 0.1 10x3/uL (0.0-0.2); #Eosinphils 0.2 10x3/uL (0.0-0.5); #Monocytes 0.5 10x3/uL (0.0-1.1); #Neutrophils 4.2 10x3/uL (1.5-8.4); %Eosinophils 2.8 % (0.0-6.0); %Lymphocytes 26.2 % (18.0-47.0); %Monocytes 7.4 % (0.0-10.0); %Neutrophils 62.3 % (40.0-75.0); Hemoglobin 12.2 g/dL (12.0-15.5); Mean Corpuscular HGB CONC 32.8 g/dL (32.0-36.0); Mean Corpuscular Hemoglobin 27.7 pg (27.0-33.0); Mean Corpuscular Volume 84.4 fl (81.6-98.3); Mean Platelet Volume 10.3 fl (7.4-10.4); Platelet Count 248 10x3/uL (150-450); Red Blood Cell (RBC) Count 4.41 10x6/uL (3.90-5.03); White Blood Cell (WBC) Count 6.7 10x3/uL (3.5-10.5)
[2022-08-30 05:29] LABS: ALT (SGPT) Less than 6 U/L (8-55); AST (SGOT) 9 U/L (5-34); Albumin 3.1 g/dL (3.5-5.0); Alkaline Phosphatase 52 U/L (40-110); Anion Gap 16 mmol/L (10-20); BUN (Urea Nitrogen) 34 mg/dL (9.8-20.1); Bilirubin, Total 0.3 mg/dL (0.2-1.2); Calc. Creatinine Clearance 24 mL/min (70-130); Calcium 8.7 mg/dL (7.8-10.44); Carbon Dioxide 25 mmol/L (22-29); Chloride 102 mmol/L (98-107); Estimated GFR 20; Glucose 168 mg/dL (70-105); Potassium 4.2 mmol/L (3.5-5.1); Protein, Total 6.1 g/dL (6.0-8.3); Sodium 139 mmol/L (136-145)
[2022-08-30] MEDS: Potassium Chloride 20 MEQ TAB PO SCH (08:36)
[2022-08-30] MEDS: Sevelamer Carbonate 800 MG TAB PO SCH ×3 (08:36→16:17)
[2022-08-30] MEDS: Empagliflozin 10 MG TAB PO SCH (08:36)
[2022-08-30] MEDS: Heparin 5,000 UNITS/ML VIAL SC SCH ×3 (08:37→20:55)
[2022-08-30] MEDS: Sodium Bicarbonate Tab 325 MG TAB PO SCH ×3 (08:37→20:54)
[2022-08-30] MEDS: hydrOXYzine 25 MG TAB PO SCH (20:54)
[2022-08-30] MEDS: Rosuvastatin 20 MG TAB PO SCH (20:54)
[2022-08-30] MEDS: Melatonin 3 MG TAB PO SCH (20:55)
[2022-08-31 05:23] LABS: Albumin 2.8 g/dL (3.5-5.0); Anion Gap 12 mmol/L (10-20); BUN (Urea Nitrogen) 32 mg/dL (9.8-20.1); BUN/Creatinine Ratio 11.99; Calc. Creatinine Clearance 25 mL/min (70-130); Calcium 8.5 mg/dL (7.8-10.44); Carbon Dioxide 27 mmol/L (22-29); Chloride 104 mmol/L (98-107); Estimated GFR 20; Glucose 163 mg/dL (70-105); Phosphorus 4.9 mg/dL (2.3-4.7); Potassium 4.4 mmol/L (3.5-5.1); Sodium 139 mmol/L (136-145)
[2022-08-31] MEDS: Potassium Chloride 20 MEQ TAB PO SCH (09:40)
[2022-08-31] MEDS: Sevelamer Carbonate 800 MG TAB PO SCH ×3 (09:41→16:52)
[2022-08-31] MEDS: Empagliflozin 10 MG TAB PO SCH (09:41)
[2022-08-31] MEDS: Sodium Bicarbonate Tab 325 MG TAB PO SCH ×3 (09:41→21:11)
[2022-08-31] MEDS: Heparin 5,000 UNITS/ML VIAL SC SCH ×3 (09:41→21:12)
[2022-08-31] MEDS: hydrOXYzine 25 MG TAB PO SCH (21:11)
[2022-08-31] MEDS: Melatonin 3 MG TAB PO SCH (21:12)
[2022-08-31] MEDS: Rosuvastatin 20 MG TAB PO SCH (21:12)
[2022-09-01 04:45] LABS: Anion Gap 11 mmol/L (10-20); BUN (Urea Nitrogen) 39 mg/dL (9.8-20.1); Calc. Creatinine Clearance 26 mL/min (70-130); Calcium 8.7 mg/dL (7.8-10.44); Carbon Dioxide 27 mmol/L (22-29); Chloride 103 mmol/L (98-107); Estimated GFR 21; Glucose 195 mg/dL (70-105); Potassium 4.9 mmol/L (3.5-5.1); Sodium 136 mmol/L (136-145)
[2022-09-01] MEDS: Sevelamer Carbonate 800 MG TAB PO SCH (08:33)
[2022-09-01] MEDS: Heparin 5,000 UNITS/ML VIAL SC SCH (08:34)
[2022-09-01] MEDS: Sodium Bicarbonate Tab 325 MG TAB PO SCH (08:34)
[2022-09-01 08:39] VITALS: BP 138/87; TEMP 97.7
[2022-09-01] MEDS: Empagliflozin 10 MG TAB PO SCH (08:44)
[2022-09-01] MEDS ORDERED: Lidocaine 1% 20 ML MDV SC SCH (10:30)
== END 2022-09-01 12:00 | disposition home or self-care (01) | DRG 291 ==
LOC: CSHERS 20:08 → CSHERHOLD 23:28 → CSHTELE 08-24 17:38
PROVIDERS: ADMIT Family Medicine; ATTEND Family Medicine
PROC: 05PY33Z Removal of Infusion Device from Upper Vein, Percutaneous Approach (ICD-10-PCS; principal; 2022-09-01)
PROC: 0JPT3XZ Removal of Tunneled Vascular Access Device from Trunk Subcutaneous Tissue and Fascia, Percutaneous Approach (ICD-10-PCS; 2022-09-01)
DX: I13.2 Hypertensive heart and chronic kidney disease with heart failure and with stage 5 chronic kidney disease, or end stage renal disease (principal); I50.33 Acute on chronic diastolic (congestive) heart failure; J96.21 Acute and chronic respiratory failure with hypoxia; N18.6 End stage renal disease; N17.9 Acute kidney failure, unspecified; E87.20 Acidosis, unspecified; E78.5 Hyperlipidemia, unspecified; E11.42 Type 2 diabetes mellitus with diabetic polyneuropathy; E89.0 Postprocedural hypothyroidism; E83.39 Other disorders of phosphorus metabolism; E11.21 Type 2 diabetes mellitus with diabetic nephropathy; G47.00 Insomnia, unspecified; Z20.822 Contact with and (suspected) exposure to COVID-19; E11.22 Type 2 diabetes mellitus with diabetic chronic kidney disease; Z99.2 Dependence on renal dialysis; Z79.899 Other long term (current) drug therapy; Z98.51 Tubal ligation status; Z91.15 Patient's noncompliance with renal dialysis; E87.6 Hypokalemia; Z99.81 Dependence on supplemental oxygen; D63.1 Anemia in chronic kidney disease
CPT/HCPCS: 36415; 36416; 71045; 71046; 80048; 80053; 80069; 83735; 83880; 84100; 84484; 85025; 85027; 87811; 93005; 94660; 94760; 94762; J1644; J1940; P9047; Q0177; U0002

== ENCOUNTER 2022-09-11 01:56 | Inpatient (IN) | payer BC ==
[2022-09-11 02:40] LABS: #Eosinphils 0.2 10x3/uL (0.0-0.5); #Monocytes 0.4 10x3/uL (0.0-1.1); #Neutrophils 4.1 10x3/uL (1.5-8.4); %Basophils 0.6 % (0.0-2.0); %Eosinophils 3.1 % (0.0-6.0); %Lymphocytes 27.9 % (18.0-47.0); %Monocytes 6.6 % (0.0-10.0); %Neutrophils 61.5 % (40.0-75.0); Hemoglobin 10.6 g/dL (12.0-15.5); Mean Corpuscular HGB CONC 32.1 g/dL (32.0-36.0); Mean Corpuscular Hemoglobin 27.3 pg (27.0-33.0); Mean Corpuscular Volume 85.1 fl (81.6-98.3); Mean Platelet Volume 9.8 fl (7.4-10.4); Platelet Count 278 10x3/uL (150-450); RBC Distribution Width 14.1 % (11.5-14.5); Red Blood Cell (RBC) Count 3.88 10x6/uL (3.90-5.03); White Blood Cell (WBC) Count 6.7 10x3/uL (3.5-10.5)
[2022-09-11 02:53] LABS: ALT (SGPT) 7 U/L (8-55); AST (SGOT) 13 U/L (5-34); Albumin 3.1 g/dL (3.5-5.0); Alkaline Phosphatase 60 U/L (40-110); Anion Gap 15 mmol/L (10-20); BUN (Urea Nitrogen) 45 mg/dL (9.8-20.1); Bilirubin, Total 0.3 mg/dL (0.2-1.2); Calc. Creatinine Clearance 0 mL/min (70-130); Calcium 8.4 mg/dL (7.8-10.44); Carbon Dioxide 19 mmol/L (22-29); Chloride 109 mmol/L (98-107); Estimated GFR 16; Globulin 2.8 g/dL (2.4-3.5); Glucose 229 mg/dL (70-105); Potassium 4.6 mmol/L (3.5-5.1); Protein, Total 5.9 g/dL (6.0-8.3); Sodium 138 mmol/L (136-145)
[2022-09-11] MEDS ORDERED: Furosemide 40 MG/4 ML VIAL ONE ×2 (03:26→15:13)
[2022-09-11] MEDS ORDERED: Senokot S 8.6-50 MG TAB PO PRN (03:54)
[2022-09-11] MEDS ORDERED: Guaifenesin DM 100-10/5 ML UDCUP PO PRN (03:54)
[2022-09-11] MEDS ORDERED: Zolpidem Tartrate 5 MG TAB PO PRN (03:54)
[2022-09-11] MEDS ORDERED: Calcium Carbonate 500 MG ChewTAB PO PRN (03:54)
[2022-09-11] MEDS ORDERED: Dextrose 50% Abboject 50 ML SYRINGE SLOW IVP PRN (03:54)
[2022-09-11] MEDS ORDERED: Acetaminophen 325 MG TAB PO PRN (03:54)
[2022-09-11] MEDS ORDERED: Dextrose 5% in Water 1,000 ML IV PRN (03:54)
[2022-09-11] MEDS ORDERED: Ondansetron PF 4 MG/2 ML Vial IVP PRN (03:54)
[2022-09-11] MEDS ORDERED: hydrALAZINE 25 MG TAB ONE ×2 (06:04→15:10)
[2022-09-11] MEDS: hydrALAZINE 25 MG TAB PO SCH ×3 (06:08→21:40)
[2022-09-11] MEDS: Isosorbide Dinitrate 20 MG TAB PO SCH ×3 (06:09→21:40)
[2022-09-11] MEDS: Carvedilol 6.25 MG TAB PO SCH ×2 (09:15→18:36)
[2022-09-11] MEDS: Empagliflozin 10 MG TAB PO SCH (09:15)
[2022-09-11] MEDS: Escitalopram Oxalate 10 mg Tablet PO SCH (09:16)
[2022-09-11] MEDS: Folic Acid/Vit B Comp W-C PO SCH (09:16)
[2022-09-11] MEDS: Sodium Bicarbonate Tab 325 MG TAB PO SCH ×3 (09:16→21:39)
[2022-09-11] MEDS: Heparin 5,000 UNITS/ML VIAL SC SCH ×3 (09:16→21:39)
[2022-09-11] MEDS: Rosuvastatin 20 MG TAB PO SCH (09:16)
[2022-09-11] MEDS ORDERED: Heparin 5,000 UNITS/ML VIAL ONE ×2 (09:19→15:10)
[2022-09-11 11:07] LABS: #Basophils 0.1 10x3/uL (0.0-0.2); #Eosinphils 0.2 10x3/uL (0.0-0.5); #Monocytes 0.4 10x3/uL (0.0-1.1); %Basophils 0.9 % (0.0-2.0); %Eosinophils 3.1 % (0.0-6.0); %Lymphocytes 26.7 % (18.0-47.0); %Monocytes 6.4 % (0.0-10.0); %Neutrophils 62.6 % (40.0-75.0); Hemoglobin 10.1 g/dL (12.0-15.5); Mean Corpuscular HGB CONC 32.5 g/dL (32.0-36.0); Mean Corpuscular Hemoglobin 27.7 pg (27.0-33.0); Mean Corpuscular Volume 85.2 fl (81.6-98.3); Mean Platelet Volume 9.9 fl (7.4-10.4); Platelet Count 262 10x3/uL (150-450); RBC Distribution Width 13.9 % (11.5-14.5); Red Blood Cell (RBC) Count 3.65 10x6/uL (3.90-5.03); White Blood Cell (WBC) Count 6.4 10x3/uL (3.5-10.5)
[2022-09-11 11:24] LABS: Anion Gap 14 mmol/L (10-20); BUN (Urea Nitrogen) 42 mg/dL (9.8-20.1); Calc. Creatinine Clearance 0 mL/min (70-130); Calcium 8.5 mg/dL (7.8-10.44); Carbon Dioxide 20 mmol/L (22-29); Chloride 108 mmol/L (98-107); Estimated GFR 17; Glucose 295 mg/dL (70-105); Potassium 4.2 mmol/L (3.5-5.1); Sodium 138 mmol/L (136-145)
[2022-09-11] MEDS ORDERED: Albumin 25% 100 ML ONE (13:33)
[2022-09-11] MEDS: Albumin 25% 25 GM/100 ML BOT IVPB SCH ×3 (14:13→23:57)
[2022-09-11] MEDS: Furosemide 40 MG/4 ML VIAL SLOW IVP SCH (15:25)
[2022-09-11] MEDS ORDERED: ALPRAZolam 0.5 MG TAB PO SCH (18:30)
[2022-09-11] MEDS ORDERED: FLU VACC QS2022-23(6MO UP)/PF 60 MCG/0.5 ML SYRINGE IM ONE (20:45)
[2022-09-11 21:06] LABS: SARS-CoV-2 NAA Rapid Test Not Detected (NotDetected)
[2022-09-12 04:32] LABS: #Eosinphils 0.2 10x3/uL (0.0-0.5); #Monocytes 0.4 10x3/uL (0.0-1.1); #Neutrophils 3.9 10x3/uL (1.5-8.4); %Basophils 0.5 % (0.0-2.0); %Lymphocytes 24.3 % (18.0-47.0); %Monocytes 6.3 % (0.0-10.0); %Neutrophils 65.6 % (40.0-75.0); Hemoglobin 9.3 g/dL (12.0-15.5); Mean Corpuscular HGB CONC 32.4 g/dL (32.0-36.0); Mean Corpuscular Hemoglobin 27.4 pg (27.0-33.0); Mean Corpuscular Volume 84.7 fl (81.6-98.3); Platelet Count 235 10x3/uL (150-450); Red Blood Cell (RBC) Count 3.39 10x6/uL (3.90-5.03)
[2022-09-12 04:45] LABS: Anion Gap 15 mmol/L (10-20); BUN (Urea Nitrogen) 38 mg/dL (9.8-20.1); Calc. Creatinine Clearance 25 mL/min (70-130); Calcium 8.9 mg/dL (7.8-10.44); Carbon Dioxide 19 mmol/L (22-29); Chloride 110 mmol/L (98-107); Estimated GFR 19; Glucose 132 mg/dL (70-105); Magnesium 2.1 mg/dL (1.6-2.6); Potassium 4.2 mmol/L (3.5-5.1); Sodium 140 mmol/L (136-145)
[2022-09-12] MEDS: Furosemide 40 MG/4 ML VIAL SLOW IVP SCH ×3 (06:03→21:13)
[2022-09-12] MEDS: Albumin 25% 25 GM/100 ML BOT IVPB SCH (06:03)
[2022-09-12] MEDS: hydrALAZINE 25 MG TAB PO SCH ×3 (06:04→21:13)
[2022-09-12] MEDS: Isosorbide Dinitrate 20 MG TAB PO SCH ×3 (06:04→21:13)
[2022-09-12] MEDS: Escitalopram Oxalate 10 mg Tablet PO SCH (07:52)
[2022-09-12] MEDS: Carvedilol 6.25 MG TAB PO SCH ×2 (07:52→17:25)
[2022-09-12] MEDS: Empagliflozin 10 MG TAB PO SCH (07:52)
[2022-09-12] MEDS: Rosuvastatin 20 MG TAB PO SCH (07:58)
[2022-09-12] MEDS: Sodium Bicarbonate Tab 325 MG TAB PO SCH ×3 (07:58→21:13)
[2022-09-12] MEDS: Heparin 5,000 UNITS/ML VIAL SC SCH ×3 (07:58→21:13)
[2022-09-12] MEDS: Folic Acid/Vit B Comp W-C PO SCH (10:16)
[2022-09-12] MEDS: HYDROcodone/Acetaminophen 5/325 mg Tablet PO PRN (13:59)
[2022-09-12] MEDS: ALPRAZolam 0.25 MG TAB PO PRN (21:13)
[2022-09-13 04:01] LABS: Anion Gap 14 mmol/L (10-20); BUN (Urea Nitrogen) 36 mg/dL (9.8-20.1); Calc. Creatinine Clearance 23 mL/min (70-130); Calcium 8.6 mg/dL (7.8-10.44); Carbon Dioxide 22 mmol/L (22-29); Chloride 108 mmol/L (98-107); Estimated GFR 18; Glucose 195 mg/dL (70-105); Potassium 4.3 mmol/L (3.5-5.1); Sodium 140 mmol/L (136-145)
[2022-09-13] MEDS: HumaLOG 300 UNITS/3 ML VIAL SC PRN ×2 (04:09→11:52)
[2022-09-13] MEDS: Furosemide 40 MG/4 ML VIAL SLOW IVP SCH ×2 (06:08→14:31)
[2022-09-13] MEDS: hydrALAZINE 25 MG TAB PO SCH ×3 (06:08→21:38)
[2022-09-13] MEDS: Isosorbide Dinitrate 20 MG TAB PO SCH ×3 (06:08→21:41)
[2022-09-13] MEDS: Rosuvastatin 20 MG TAB PO SCH (07:40)
[2022-09-13] MEDS: Sodium Bicarbonate Tab 325 MG TAB PO SCH ×3 (07:40→21:39)
[2022-09-13] MEDS: Empagliflozin 10 MG TAB PO SCH (07:40)
[2022-09-13] MEDS: Heparin 5,000 UNITS/ML VIAL SC SCH ×3 (07:40→21:39)
[2022-09-13] MEDS: Escitalopram Oxalate 10 mg Tablet PO SCH (07:40)
[2022-09-13] MEDS: Carvedilol 6.25 MG TAB PO SCH ×2 (07:40→16:19)
[2022-09-13] MEDS: Folic Acid/Vit B Comp W-C PO SCH (07:40)
[2022-09-13] MEDS: ALPRAZolam 0.25 MG TAB PO PRN (21:48)
[2022-09-14 05:33] LABS: #Basophils 0.1 10x3/uL (0.0-0.2); #Eosinphils 0.1 10x3/uL (0.0-0.5); #Monocytes 0.5 10x3/uL (0.0-1.1); #Neutrophils 5.2 10x3/uL (1.5-8.4); %Basophils 0.7 % (0.0-2.0); %Eosinophils 1.3 % (0.0-6.0); %Lymphocytes 13.7 % (18.0-47.0); %Monocytes 7.4 % (0.0-10.0); %Neutrophils 76.6 % (40.0-75.0); Anion Gap 13 mmol/L (10-20); BUN (Urea Nitrogen) 35 mg/dL (9.8-20.1); Calc. Creatinine Clearance 22 mL/min (70-130); Calcium 8.8 mg/dL (7.8-10.44); Carbon Dioxide 22 mmol/L (22-29); Chloride 108 mmol/L (98-107); Estimated GFR 18; Glucose 150 mg/dL (70-105); Hemoglobin 9.7 g/dL (12.0-15.5); Mean Corpuscular HGB CONC 31.8 g/dL (32.0-36.0); Mean Corpuscular Hemoglobin 27.2 pg (27.0-33.0); Mean Corpuscular Volume 85.4 fl (81.6-98.3); Platelet Count 227 10x3/uL (150-450); Red Blood Cell (RBC) Count 3.57 10x6/uL (3.90-5.03); Sodium 139 mmol/L (136-145); White Blood Cell (WBC) Count 6.8 10x3/uL (3.5-10.5)
[2022-09-14] MEDS: Furosemide 40 MG/4 ML VIAL SLOW IVP SCH (06:04)
[2022-09-14] MEDS: hydrALAZINE 25 MG TAB PO SCH ×3 (06:05→21:06)
[2022-09-14] MEDS: Isosorbide Dinitrate 20 MG TAB PO SCH (06:17)
[2022-09-14] MEDS: Isosorbide Dinitrate 10 MG TAB PO SCH ×3 (06:17→21:06)
[2022-09-14] MEDS: Heparin 5,000 UNITS/ML VIAL SC SCH ×3 (09:56→21:06)
[2022-09-14] MEDS: Carvedilol 6.25 MG TAB PO SCH ×2 (10:00→16:16)
[2022-09-14] MEDS: Escitalopram Oxalate 10 mg Tablet PO SCH (10:00)
[2022-09-14] MEDS: Rosuvastatin 20 MG TAB PO SCH (10:00)
[2022-09-14] MEDS: Sodium Bicarbonate Tab 325 MG TAB PO SCH ×3 (10:00→21:07)
[2022-09-14] MEDS: Folic Acid/Vit B Comp W-C PO SCH (10:01)
[2022-09-14] MEDS: Furosemide 40 MG TAB PO SCH (14:42)
[2022-09-14] MEDS: HYDROcodone/Acetaminophen 5/325 mg Tablet PO PRN (14:42)
[2022-09-14] MEDS: HumaLOG 300 UNITS/3 ML VIAL SC PRN (16:16)
[2022-09-14 16:17] VITALS: BMI 25.9
[2022-09-14] MEDS: ALPRAZolam 0.25 MG TAB PO PRN (21:15)
[2022-09-15 05:25] LABS: #Basophils 0.1 10x3/uL (0.0-0.2); #Eosinphils 0.2 10x3/uL (0.0-0.5); #Monocytes 0.5 10x3/uL (0.0-1.1); %Eosinophils 3.2 % (0.0-6.0); %Lymphocytes 27.5 % (18.0-47.0); %Monocytes 8.9 % (0.0-10.0); %Neutrophils 59.2 % (40.0-75.0); Hemoglobin 9.4 g/dL (12.0-15.5); Mean Corpuscular HGB CONC 31.9 g/dL (32.0-36.0); Mean Corpuscular Hemoglobin 27.2 pg (27.0-33.0); Mean Corpuscular Volume 85.3 fl (81.6-98.3); Mean Platelet Volume 9.8 fl (7.4-10.4); Platelet Count 214 10x3/uL (150-450); Red Blood Cell (RBC) Count 3.46 10x6/uL (3.90-5.03); White Blood Cell (WBC) Count 5.1 10x3/uL (3.5-10.5)
[2022-09-15 05:26] LABS: Anion Gap 15 mmol/L (10-20); BUN (Urea Nitrogen) 33 mg/dL (9.8-20.1); Calc. Creatinine Clearance 23 mL/min (70-130); Calcium 8.7 mg/dL (7.8-10.44); Carbon Dioxide 21 mmol/L (22-29); Chloride 108 mmol/L (98-107); Estimated GFR 20; Glucose 140 mg/dL (70-105); Phosphorus 4.7 mg/dL (2.3-4.7); Potassium 3.9 mmol/L (3.5-5.1); Sodium 140 mmol/L (136-145)
[2022-09-15] MEDS: Isosorbide Dinitrate 10 MG TAB PO SCH ×2 (06:04→14:08)
[2022-09-15] MEDS: Furosemide 40 MG TAB PO SCH ×2 (06:04→14:08)
[2022-09-15] MEDS: hydrALAZINE 25 MG TAB PO SCH ×2 (06:05→14:08)
[2022-09-15] MEDS: Heparin 5,000 UNITS/ML VIAL SC SCH ×2 (09:33→14:10)
[2022-09-15] MEDS: Rosuvastatin 20 MG TAB PO SCH (09:33)
[2022-09-15] MEDS: Carvedilol 6.25 MG TAB PO SCH (09:33)
[2022-09-15] MEDS: Sodium Bicarbonate Tab 325 MG TAB PO SCH ×2 (09:33→14:08)
[2022-09-15] MEDS: Escitalopram Oxalate 10 mg Tablet PO SCH (09:34)
[2022-09-15] MEDS: Folic Acid/Vit B Comp W-C PO SCH (09:34)
[2022-09-15 11:49] VITALS: BP 134/74; TEMP 98.9
[2022-09-15] MEDS: HumaLOG 300 UNITS/3 ML VIAL SC PRN (13:02)
== END 2022-09-15 15:43 | disposition home or self-care (01) | DRG 291 ==
LOC: CSHERS 01:56 → CSHERHOLD 04:02 → CSHTELE 14:55 → CSHICU 20:20 → CSHTELE 09-13 13:30
PROVIDERS: ADMIT Student in an Organized Health Care Education/Training Program; ATTEND Internal Medicine
DX: I13.0 Hypertensive heart and chronic kidney disease with heart failure and stage 1 through stage 4 chronic kidney disease, or unspecified chronic kidney disease (principal); I50.43 Acute on chronic combined systolic (congestive) and diastolic (congestive) heart failure; J96.21 Acute and chronic respiratory failure with hypoxia; N17.9 Acute kidney failure, unspecified; N18.4 Chronic kidney disease, stage 4 (severe); E87.20 Acidosis, unspecified; E78.5 Hyperlipidemia, unspecified; E11.21 Type 2 diabetes mellitus with diabetic nephropathy; E11.22 Type 2 diabetes mellitus with diabetic chronic kidney disease; D63.1 Anemia in chronic kidney disease; E11.42 Type 2 diabetes mellitus with diabetic polyneuropathy; E89.0 Postprocedural hypothyroidism; Z20.822 Contact with and (suspected) exposure to COVID-19; Z79.899 Other long term (current) drug therapy; Z86.16 Personal history of COVID-19; Z98.51 Tubal ligation status; Z86.711 Personal history of pulmonary embolism
CPT/HCPCS: 36415; 36416; 71045; 71250; 80048; 80053; 83735; 83880; 83970; 84100; 84443; 84484; 85025; 93005; 93306; 94760; 94762; 96374; J1644; J1815; J1940; J2405; P9047; U0002

== ENCOUNTER 2022-09-30 00:41 | Inpatient (IN) | payer BC ==
[2022-09-30 01:23] LABS: #Eosinphils 0.1 10x3/uL (0.0-0.5); #Monocytes 0.5 10x3/uL (0.0-1.1); #Neutrophils 4.8 10x3/uL (1.5-8.4); %Basophils 0.6 % (0.0-2.0); %Lymphocytes 21.6 % (18.0-47.0); %Monocytes 7.1 % (0.0-10.0); %Neutrophils 68.4 % (40.0-75.0); Hemoglobin 10.3 g/dL (12.0-15.5); Mean Corpuscular HGB CONC 32.4 g/dL (32.0-36.0); Mean Corpuscular Hemoglobin 27.5 pg (27.0-33.0); Platelet Count 248 10x3/uL (150-450); RBC Distribution Width 14.1 % (11.5-14.5); Red Blood Cell (RBC) Count 3.74 10x6/uL (3.90-5.03)
[2022-09-30 01:33] LABS: PTT 30.1 sec (22.0-33.0); Prothrombin Time 10.4 sec (9.5-12.1)
[2022-09-30 01:37] LABS: ALT (SGPT) 7 U/L (8-55); AST (SGOT) 10 U/L (5-34); Albumin 2.9 g/dL (3.5-5.0); Alkaline Phosphatase 58 U/L (40-110); Anion Gap 14 mmol/L (10-20); BUN (Urea Nitrogen) 40 mg/dL (9.8-20.1); Bilirubin, Total 0.3 mg/dL (0.2-1.2); Calc. Creatinine Clearance 0 mL/min (70-130); Calcium 8.4 mg/dL (7.8-10.44); Carbon Dioxide 23 mmol/L (22-29); Chloride 108 mmol/L (98-107); Estimated GFR 19; Globulin 3.2 g/dL (2.4-3.5); Glucose 190 mg/dL (70-105); Magnesium 2.1 mg/dL (1.6-2.6); Potassium 4.4 mmol/L (3.5-5.1); Protein, Total 6.1 g/dL (6.0-8.3); Sodium 141 mmol/L (136-145)
[2022-09-30 01:52] LABS: SARS-CoV-2 NAA Rapid Test Not Detected (NotDetected)
[2022-09-30] MEDS ORDERED: Dextrose 5% in Water 1,000 ML IV PRN (03:20)
[2022-09-30] MEDS ORDERED: HumaLOG 300 UNITS/3 ML VIAL SC PRN (03:20)
[2022-09-30] MEDS ORDERED: Calcium Carbonate 500 MG ChewTAB PO PRN (03:20)
[2022-09-30] MEDS ORDERED: Dextrose 50% Abboject 50 ML SYRINGE SLOW IVP PRN (03:20)
[2022-09-30] MEDS ORDERED: Senokot S 8.6-50 MG TAB PO PRN (03:20)
[2022-09-30] MEDS ORDERED: ALPRAZolam 0.25 MG TAB PO SCH ×2 (05:00→13:00)
[2022-09-30] MEDS ORDERED: ALPRAZolam 0.5 MG TAB ONE ×2 (05:07→12:54)
[2022-09-30] MEDS ORDERED: Furosemide 40 MG/4 ML VIAL ONE (05:07)
[2022-09-30] MEDS ORDERED: Albumin 25% 100 ML ONE ×2 (05:11→09:05)
[2022-09-30] MEDS ORDERED: hydrALAZINE 25 MG TAB ONE ×2 (05:13→15:16)
[2022-09-30] MEDS: Furosemide 40 MG/4 ML VIAL SLOW IVP SCH ×2 (05:33→18:32)
[2022-09-30] MEDS: Isosorbide Dinitrate 20 MG TAB PO SCH ×3 (05:33→21:58)
[2022-09-30] MEDS: hydrALAZINE 25 MG TAB PO SCH ×3 (05:33→21:57)
[2022-09-30] MEDS: Albumin 25% 25 GM/100 ML BOT IVPB SCH ×2 (05:33→11:03)
[2022-09-30] MEDS ORDERED: Furosemide 40 MG/4 ML VIAL SLOW IVP SCH (06:00)
[2022-09-30] MEDS: Sevelamer Carbonate 800 MG TAB PO SCH ×3 (08:47→18:33)
[2022-09-30] MEDS ORDERED: Heparin 5,000 UNITS/ML VIAL ONE ×2 (09:46→15:16)
[2022-09-30] MEDS: Escitalopram Oxalate 10 mg Tablet PO SCH (09:52)
[2022-09-30] MEDS: Heparin 5,000 UNITS/ML VIAL SC SCH ×3 (09:52→20:23)
[2022-09-30] MEDS: Sacubitril 24MG/Valsartan 26 MG TAB PO SCH ×2 (09:53→20:23)
[2022-09-30] MEDS: Rosuvastatin 20 MG TAB PO SCH (09:53)
[2022-09-30] MEDS: Sodium Bicarbonate Tab 325 MG TAB PO SCH ×3 (09:53→20:23)
[2022-09-30] MEDS ORDERED: HYDROcodone/Acetaminophen 5/325 mg Tablet ONE (12:54)
[2022-09-30] MEDS: HYDROcodone/Acetaminophen 5/325 mg Tablet PO PRN (12:59)
[2022-09-30] MEDS: Ondansetron PF 4 MG/2 ML Vial IVP PRN (20:20)
[2022-10-01] MEDS: Acetaminophen 325 MG TAB PO PRN (00:29)
[2022-10-01 04:11] LABS: Anion Gap 15 mmol/L (10-20); BUN (Urea Nitrogen) 36 mg/dL (9.8-20.1); Calc. Creatinine Clearance 28 mL/min (70-130); Calcium 8.7 mg/dL (7.8-10.44); Carbon Dioxide 20 mmol/L (22-29); Chloride 110 mmol/L (98-107); Estimated GFR 21; Glucose 92 mg/dL (70-105); Potassium 4.3 mmol/L (3.5-5.1); Sodium 141 mmol/L (136-145)
[2022-10-01] MEDS: Furosemide 40 MG/4 ML VIAL SLOW IVP SCH ×2 (05:36→16:42)
[2022-10-01] MEDS: Isosorbide Dinitrate 20 MG TAB PO SCH ×3 (05:37→21:21)
[2022-10-01] MEDS: hydrALAZINE 25 MG TAB PO SCH ×3 (05:37→21:21)
[2022-10-01] MEDS: Sevelamer Carbonate 800 MG TAB PO SCH ×3 (08:44→16:41)
[2022-10-01] MEDS: Rosuvastatin 20 MG TAB PO SCH (08:44)
[2022-10-01] MEDS: Sacubitril 24MG/Valsartan 26 MG TAB PO SCH ×2 (08:45→21:21)
[2022-10-01] MEDS: Sodium Bicarbonate Tab 325 MG TAB PO SCH ×3 (08:45→21:21)
[2022-10-01] MEDS: Escitalopram Oxalate 10 mg Tablet PO SCH (08:45)
[2022-10-01] MEDS: Heparin 5,000 UNITS/ML VIAL SC SCH ×3 (08:47→21:22)
[2022-10-01] MEDS ORDERED: Ondansetron PF 4 MG/2 ML Vial ONE (11:00)
[2022-10-01] MEDS ORDERED: ALPRAZolam 0.25 MG TAB PO SCH (21:15)
[2022-10-02 03:44] LABS: Anion Gap 14 mmol/L (10-20); BUN (Urea Nitrogen) 38 mg/dL (9.8-20.1); Calc. Creatinine Clearance 26 mL/min (70-130); Calcium 8.4 mg/dL (7.8-10.44); Carbon Dioxide 22 mmol/L (22-29); Chloride 107 mmol/L (98-107); Estimated GFR 19; Glucose 95 mg/dL (70-105); Potassium 4.2 mmol/L (3.5-5.1); Sodium 139 mmol/L (136-145)
[2022-10-02] MEDS: Acetaminophen 325 MG TAB PO PRN (05:12)
[2022-10-02] MEDS: Furosemide 40 MG/4 ML VIAL SLOW IVP SCH ×2 (05:12→18:00)
[2022-10-02] MEDS: hydrALAZINE 25 MG TAB PO SCH ×3 (05:12→21:00)
[2022-10-02] MEDS: Isosorbide Dinitrate 20 MG TAB PO SCH ×3 (05:13→21:03)
[2022-10-02] MEDS: Sevelamer Carbonate 800 MG TAB PO SCH ×3 (08:14→18:00)
[2022-10-02] MEDS: Escitalopram Oxalate 10 mg Tablet PO SCH (08:15)
[2022-10-02] MEDS: Heparin 5,000 UNITS/ML VIAL SC SCH ×3 (08:15→21:01)
[2022-10-02] MEDS: Rosuvastatin 20 MG TAB PO SCH (08:16)
[2022-10-02] MEDS: Sodium Bicarbonate Tab 325 MG TAB PO SCH ×3 (08:16→21:00)
[2022-10-02] MEDS: Sacubitril 24MG/Valsartan 26 MG TAB PO SCH ×2 (08:16→21:00)
[2022-10-02 08:23] LABS: Actual Bicarbonate (HCO3v) 24 mEq/L (22-28); Base Excess -1.5 mEq/L (-2 - +2); Puncture Site Other Site; pH (venous) 7.37 (7.32-7.43)
[2022-10-02] MEDS ORDERED: Cefepime 2 GM in Sodium Chloride 0.9% 100 ML IVPB SCH (09:00)
[2022-10-02] MEDS ORDERED: VANCOMYCIN 1.25 GM/250 ML BAG 1.25 GM in Premix Bag 1 BAG IVPB SCH (09:00)
[2022-10-02] MEDS ORDERED: Vancomycin 1 GM in Premix Bag 1 BAG IVPB SCH (09:00)
[2022-10-02 09:32] LABS: Bilirubin Neg (Negative); Blood, Urine 25 (Negative); Glucose, Urine (Dipstick) >=1000 mg/dL (Negative); Ketone, Urine 5 mg/dL (Negative); Leukocyte 25 (Negative); Nitrite Negative (Negative); Protein, Urine (Dipstick) 500 mg/dl (Neg-Trace); Urobilinogen Normal mg/dL (Less than 2)
[2022-10-02 09:37] LABS: Clarity Hazy (Clear)
[2022-10-02 09:52] LABS: Legionella Urinary Ag Negative (Negative)
[2022-10-02 09:53] LABS: CAUTI Indications for Culture Fever or rigors; Strep pneumo Urine Ag NEGATIVE (NEGATIVE); WBC/HPF 21-50 HPF (0-3)
[2022-10-02 09:54] LABS: Renal Epithelial 0-3 HPF (None Seen)
[2022-10-02 09:55] LABS: Bacteria/HPF Rare-Few HPF (None Seen)
[2022-10-02 10:01] LABS: Urine Culture Reflex Yes Yes
[2022-10-02] MEDS ORDERED: Vancomycin Dose by Levels Sliding Scale (Wt 71-99) FS SCH (10:30)
[2022-10-02] MEDS: Guaifenesin DM 100-10/5 ML UDCUP PO PRN (14:23)
[2022-10-02] MEDS: Cefepime 1 GM in Sodium Chloride 0.9% 100 ML IVPB SCH (21:00)
[2022-10-02] MEDS: hydrOXYzine 25 MG TAB PO PRN (23:03)
[2022-10-03 04:23] LABS: #Eosinphils 0.1 10x3/uL (0.0-0.5); #Monocytes 0.5 10x3/uL (0.0-1.1); #Neutrophils 2.8 10x3/uL (1.5-8.4); %Basophils 0.9 % (0.0-2.0); %Eosinophils 2.7 % (0.0-6.0); %Lymphocytes 20.7 % (18.0-47.0); %Monocytes 10.9 % (0.0-10.0); %Neutrophils 64.6 % (40.0-75.0); Mean Corpuscular HGB CONC 31.7 g/dL (32.0-36.0); Mean Corpuscular Hemoglobin 27.2 pg (27.0-33.0); Mean Corpuscular Volume 85.8 fl (81.6-98.3); Mean Platelet Volume 9.9 fl (7.4-10.4); Platelet Count 184 10x3/uL (150-450); Red Blood Cell (RBC) Count 3.31 10x6/uL (3.90-5.03); White Blood Cell (WBC) Count 4.4 10x3/uL (3.5-10.5)
[2022-10-03 04:33] LABS: ALT (SGPT) 10 U/L (8-55); AST (SGOT) 11 U/L (5-34); Albumin 2.9 g/dL (3.5-5.0); Alkaline Phosphatase 60 U/L (40-110); Anion Gap 14 mmol/L (10-20); BUN (Urea Nitrogen) 40 mg/dL (9.8-20.1); Bilirubin, Direct 0.1 mg/dL (0.1-0.3); Bilirubin, Total 0.3 mg/dL (0.2-1.2); Calc. Creatinine Clearance 25 mL/min (70-130); Calcium 8.4 mg/dL (7.8-10.44); Carbon Dioxide 21 mmol/L (22-29); Chloride 108 mmol/L (98-107); Estimated GFR 19; Glucose 89 mg/dL (70-105); Potassium 4.1 mmol/L (3.5-5.1); Protein, Total 5.8 g/dL (6.0-8.3); Sodium 139 mmol/L (136-145)
[2022-10-03] MEDS: Furosemide 40 MG/4 ML VIAL SLOW IVP SCH ×2 (05:44→16:58)
[2022-10-03] MEDS: Isosorbide Dinitrate 20 MG TAB PO SCH ×2 (05:46→15:10)
[2022-10-03] MEDS: hydrALAZINE 25 MG TAB PO SCH ×2 (05:46→15:10)
[2022-10-03] MEDS ORDERED: Albumin 25% 25 GM/100 ML BOT IVPB SCH (08:00)
[2022-10-03] MEDS: Albumin 25% 25 GM/100 ML BOT IVPB SCH ×3 (09:33→23:23)
[2022-10-03] MEDS: Cefepime 1 GM in Sodium Chloride 0.9% 100 ML IVPB SCH ×2 (09:33→23:23)
[2022-10-03] MEDS: Sevelamer Carbonate 800 MG TAB PO SCH ×3 (09:33→16:58)
[2022-10-03] MEDS: Heparin 5,000 UNITS/ML VIAL SC SCH ×2 (09:34→15:11)
[2022-10-03] MEDS: Escitalopram Oxalate 10 mg Tablet PO SCH (09:34)
[2022-10-03] MEDS: Sacubitril 24MG/Valsartan 26 MG TAB PO SCH (09:35)
[2022-10-03] MEDS: metroNIDAZOLE 500 MG in Premix Bag 1 BAG IVPB SCH ×2 (09:35→16:58)
[2022-10-03] MEDS: Rosuvastatin 20 MG TAB PO SCH (09:35)
[2022-10-03] MEDS: Sodium Bicarbonate Tab 325 MG TAB PO SCH ×2 (09:35→15:10)
[2022-10-03 09:43] LABS: Vancomycin, Random 16.6 ug/mL (See Comment)
[2022-10-03] MEDS ORDERED: Vancomycin Dose by Levels Sliding Scale (Wt <71) FS SCH (10:00)
[2022-10-03] MEDS ORDERED: Vancomycin HCl 250 MG, Admixture Fee 1 EACH in Sodium Chloride 0.9% 100 ML IV SCH (10:30)
[2022-10-03] MEDS: HYDROcodone/Acetaminophen 5/325 mg Tablet PO PRN (11:10)
[2022-10-03 12:42] LABS: Hemoglobin A1c 7.3 % (4.0-6.0)
[2022-10-03] MEDS: Guaifenesin DM 100-10/5 ML UDCUP PO PRN (17:22)
[2022-10-03] MEDS ORDERED: Sodium Chloride 0.9% 100 ML ONE (22:00)
[2022-10-03] MEDS ORDERED: Cefepime 1 GM VIAL ONE (22:00)
[2022-10-03] MEDS: Ondansetron PF 4 MG/2 ML Vial IVP PRN (22:09)
[2022-10-03] MEDS: hydrOXYzine 25 MG TAB PO PRN (23:21)
[2022-10-04] MEDS: HYDROcodone/Acetaminophen 5/325 mg Tablet PO PRN (01:28)
[2022-10-04] MEDS: Sacubitril 24MG/Valsartan 26 MG TAB PO SCH ×3 (01:29→22:07)
[2022-10-04] MEDS: hydrALAZINE 25 MG TAB PO SCH ×4 (01:29→22:07)
[2022-10-04] MEDS: Heparin 5,000 UNITS/ML VIAL SC SCH ×4 (01:29→22:07)
[2022-10-04] MEDS: Sodium Bicarbonate Tab 325 MG TAB PO SCH ×4 (01:29→22:07)
[2022-10-04] MEDS: Isosorbide Dinitrate 20 MG TAB PO SCH ×4 (01:30→22:08)
[2022-10-04] MEDS: metroNIDAZOLE 500 MG in Premix Bag 1 BAG IVPB SCH ×3 (02:08→17:09)
[2022-10-04] MEDS ORDERED: ALPRAZolam 0.25 MG TAB PO SCH (02:45)
[2022-10-04] MEDS: Albumin 25% 25 GM/100 ML BOT IVPB SCH (04:49)
[2022-10-04 05:22] LABS: Anion Gap 16 mmol/L (10-20); BUN (Urea Nitrogen) 39 mg/dL (9.8-20.1); Calc. Creatinine Clearance 24 mL/min (70-130); Calcium 8.2 mg/dL (7.8-10.44); Carbon Dioxide 20 mmol/L (22-29); Chloride 107 mmol/L (98-107); Estimated GFR 19; Glucose 138 mg/dL (70-105); Magnesium 1.9 mg/dL (1.6-2.6); Potassium 3.8 mmol/L (3.5-5.1); Sodium 139 mmol/L (136-145)
[2022-10-04 05:30] LABS: #Eosinphils 0.1 10x3/uL (0.0-0.5); #Monocytes 0.4 10x3/uL (0.0-1.1); #Neutrophils 3.1 10x3/uL (1.5-8.4); %Basophils 0.6 % (0.0-2.0); %Eosinophils 1.7 % (0.0-6.0); %Lymphocytes 23.7 % (18.0-47.0); %Monocytes 7.6 % (0.0-10.0); %Neutrophils 65.8 % (40.0-75.0); Hemoglobin 8.3 g/dL (12.0-15.5); Mean Corpuscular Hemoglobin 27.6 pg (27.0-33.0); Mean Platelet Volume 11.3 fl (7.4-10.4); Platelet Count 188 10x3/uL (150-450); RBC Distribution Width 14.2 % (11.5-14.5); Red Blood Cell (RBC) Count 3.01 10x6/uL (3.90-5.03); White Blood Cell (WBC) Count 4.8 10x3/uL (3.5-10.5)
[2022-10-04] MEDS: Furosemide 40 MG/4 ML VIAL SLOW IVP SCH ×3 (05:59→17:29)
[2022-10-04] MEDS: Cefepime 1 GM in Sodium Chloride 0.9% 100 ML IVPB SCH ×2 (08:51→21:46)
[2022-10-04] MEDS: Escitalopram Oxalate 10 mg Tablet PO SCH (08:51)
[2022-10-04] MEDS: Sevelamer Carbonate 800 MG TAB PO SCH ×3 (08:51→17:23)
[2022-10-04] MEDS: Rosuvastatin 20 MG TAB PO SCH (08:52)
[2022-10-04] MEDS: Guaifenesin DM 100-10/5 ML UDCUP PO PRN ×2 (08:55→21:58)
[2022-10-04] MEDS ORDERED: EPOETIN ALFA-EPBX (ESRD) 4,000 UNIT/ML VIAL SC SCH (09:00)
[2022-10-04] MEDS ORDERED: Benzonatate 100 MG CAP PO SCH (10:00)
[2022-10-04 10:12] LABS: Vancomycin, Random 14.6 ug/mL (See Comment)
[2022-10-04] MEDS: Ondansetron PF 4 MG/2 ML Vial IVP PRN ×2 (11:25→23:25)
[2022-10-04] MEDS: hydrOXYzine 25 MG TAB PO PRN (11:27)
[2022-10-04] MEDS: Acetaminophen 325 MG TAB PO PRN (11:27)
[2022-10-04] MEDS ORDERED: Vancomycin HCl 500 MG in Sodium Chloride 0.9% 100 ML IVPB SCH (11:45)
[2022-10-04] MEDS: Benzonatate 100 MG CAP PO SCH ×2 (14:56→22:06)
[2022-10-04] MEDS: Ferrous Sulfate 325 MG TAB PO SCH (15:21)
[2022-10-04] MEDS ORDERED: Furosemide 100 MG/10 ML VIAL SLOW IVP SCH (17:15)
[2022-10-04 17:30] LABS: SARS-CoV-2 NAA Rapid Test Not Detected (NotDetected)
[2022-10-04] MEDS ORDERED: Albumin 25% 25 GM/100 ML BOT IVPB SCH ×2 (17:30→18:00)
[2022-10-04] MEDS: ALPRAZolam 0.5 MG TAB PO PRN (21:44)
[2022-10-05] MEDS: metroNIDAZOLE 500 MG in Premix Bag 1 BAG IVPB SCH ×3 (01:30→16:46)
[2022-10-05 05:42] LABS: #Monocytes 0.4 10x3/uL (0.0-1.1); #Neutrophils 3.9 10x3/uL (1.5-8.4); %Basophils 0.4 % (0.0-2.0); %Eosinophils 0.6 % (0.0-6.0); %Lymphocytes 11.6 % (18.0-47.0); %Monocytes 7.6 % (0.0-10.0); %Neutrophils 78.8 % (40.0-75.0); Mean Corpuscular HGB CONC 31.1 g/dL (32.0-36.0); Mean Corpuscular Hemoglobin 27.2 pg (27.0-33.0); Mean Corpuscular Volume 87.3 fl (81.6-98.3); Mean Platelet Volume 10.6 fl (7.4-10.4); Platelet Count 194 10x3/uL (150-450); RBC Distribution Width 14.2 % (11.5-14.5); Red Blood Cell (RBC) Count 3.31 10x6/uL (3.90-5.03)
[2022-10-05 05:54] LABS: Anion Gap 16 mmol/L (10-20); BUN (Urea Nitrogen) 37 mg/dL (9.8-20.1); Calc. Creatinine Clearance 0 mL/min (70-130); Calcium 8.6 mg/dL (7.8-10.44); Carbon Dioxide 19 mmol/L (22-29); Chloride 108 mmol/L (98-107); Estimated GFR 19; Glucose 103 mg/dL (70-105); Potassium 3.9 mmol/L (3.5-5.1); Sodium 139 mmol/L (136-145)
[2022-10-05] MEDS: Furosemide 100 MG/10 ML VIAL SLOW IVP SCH ×2 (06:24→14:15)
[2022-10-05] MEDS: hydrALAZINE 25 MG TAB PO SCH ×3 (06:34→21:00)
[2022-10-05] MEDS: Isosorbide Dinitrate 20 MG TAB PO SCH ×3 (06:34→21:00)
[2022-10-05 06:35] VITALS: BMI 25.8
[2022-10-05] MEDS: Cefepime 1 GM in Sodium Chloride 0.9% 100 ML IVPB SCH ×2 (07:57→20:08)
[2022-10-05] MEDS: Escitalopram Oxalate 10 mg Tablet PO SCH (08:13)
[2022-10-05] MEDS: Heparin 5,000 UNITS/ML VIAL SC SCH ×3 (08:13→20:06)
[2022-10-05] MEDS: Sodium Bicarbonate Tab 325 MG TAB PO SCH ×3 (08:13→20:06)
[2022-10-05] MEDS: Rosuvastatin 20 MG TAB PO SCH (08:13)
[2022-10-05] MEDS: hydrOXYzine 25 MG TAB PO PRN (08:13)
[2022-10-05] MEDS: Benzonatate 100 MG CAP PO SCH ×4 (08:13→20:07)
[2022-10-05] MEDS: Ondansetron PF 4 MG/2 ML Vial IVP PRN (08:18)
[2022-10-05] MEDS: Ferrous Sulfate 325 MG TAB PO SCH ×2 (08:25→16:43)
[2022-10-05] MEDS: Sevelamer Carbonate 800 MG TAB PO SCH ×3 (08:26→16:44)
[2022-10-05] MEDS: Sacubitril 24MG/Valsartan 26 MG TAB PO SCH ×2 (08:34→20:06)
[2022-10-05] MEDS: Guaifenesin DM 100-10/5 ML UDCUP PO PRN ×2 (08:52→22:37)
[2022-10-05] MEDS ORDERED: diphenhydrAMINE 25 MG in Sodium Chloride 0.9% 50 ML IVPB SCH (11:30)
[2022-10-05] MEDS ORDERED: Metoclopramide HCl 10 MG/2 ML VIAL IVP SCH (12:00)
[2022-10-06 05:12] LABS: #Eosinphils 0.1 10x3/uL (0.0-0.5); #Monocytes 0.4 10x3/uL (0.0-1.1); #Neutrophils 3.1 10x3/uL (1.5-8.4); %Basophils 0.4 % (0.0-2.0); %Eosinophils 1.3 % (0.0-6.0); %Lymphocytes 23.5 % (18.0-47.0); %Monocytes 9.2 % (0.0-10.0); %Neutrophils 65.4 % (40.0-75.0); Hemoglobin 8.5 g/dL (12.0-15.5); Mean Corpuscular HGB CONC 31.7 g/dL (32.0-36.0); Mean Corpuscular Hemoglobin 27.4 pg (27.0-33.0); Mean Corpuscular Volume 86.5 fl (81.6-98.3); Mean Platelet Volume 10.4 fl (7.4-10.4); Platelet Count 190 10x3/uL (150-450); RBC Distribution Width 14.2 % (11.5-14.5); White Blood Cell (WBC) Count 4.7 10x3/uL (3.5-10.5)
[2022-10-06 05:25] LABS: Anion Gap 14 mmol/L (10-20); BUN (Urea Nitrogen) 36 mg/dL (9.8-20.1); Calc. Creatinine Clearance 24 mL/min (70-130); Calcium 8.1 mg/dL (7.8-10.44); Carbon Dioxide 21 mmol/L (22-29); Chloride 108 mmol/L (98-107); Estimated GFR 20; Glucose 76 mg/dL (70-105); Magnesium 1.8 mg/dL (1.6-2.6); Potassium 3.4 mmol/L (3.5-5.1); Sodium 140 mmol/L (136-145)
[2022-10-06] MEDS: Furosemide 100 MG/10 ML VIAL SLOW IVP SCH ×2 (05:36→13:39)
[2022-10-06] MEDS: Isosorbide Dinitrate 20 MG TAB PO SCH ×3 (05:36→21:57)
[2022-10-06] MEDS: hydrALAZINE 25 MG TAB PO SCH ×3 (05:36→21:57)
[2022-10-06] MEDS: Ferrous Sulfate 325 MG TAB PO SCH ×2 (07:39→16:04)
[2022-10-06] MEDS: Sevelamer Carbonate 800 MG TAB PO SCH ×3 (07:39→16:04)
[2022-10-06] MEDS: Benzonatate 100 MG CAP PO SCH ×3 (07:40→20:57)
[2022-10-06] MEDS: Cefepime 1 GM in Sodium Chloride 0.9% 100 ML IVPB SCH ×2 (07:40→20:29)
[2022-10-06] MEDS: Escitalopram Oxalate 10 mg Tablet PO SCH (07:41)
[2022-10-06] MEDS: Heparin 5,000 UNITS/ML VIAL SC SCH ×3 (07:41→20:57)
[2022-10-06] MEDS: Rosuvastatin 20 MG TAB PO SCH (07:42)
[2022-10-06] MEDS: Sacubitril 24MG/Valsartan 26 MG TAB PO SCH ×2 (07:42→20:56)
[2022-10-06] MEDS: Sodium Bicarbonate Tab 325 MG TAB PO SCH ×3 (07:42→20:57)
[2022-10-06] MEDS ORDERED: Potassium Chloride 20 MEQ TAB PO SCH (08:00)
[2022-10-06] MEDS: metroNIDAZOLE 500 MG in Premix Bag 1 BAG IVPB SCH ×3 (08:20→16:03)
[2022-10-06] MEDS ORDERED: guaiFENesin ER 600 MG TAB PO SCH (11:00)
[2022-10-06] MEDS: guaiFENesin ER 600 MG TAB PO SCH (20:57)
[2022-10-06] MEDS: ALPRAZolam 0.5 MG TAB PO PRN (21:58)
[2022-10-07] MEDS: metroNIDAZOLE 500 MG in Premix Bag 1 BAG IVPB SCH ×3 (00:19→17:16)
[2022-10-07] MEDS: hydrALAZINE 25 MG TAB PO SCH ×3 (05:15→21:58)
[2022-10-07] MEDS: Isosorbide Dinitrate 20 MG TAB PO SCH ×3 (05:16→21:54)
[2022-10-07] MEDS: Furosemide 100 MG/10 ML VIAL SLOW IVP SCH ×2 (05:16→09:04)
[2022-10-07 06:27] LABS: Anion Gap 15 mmol/L (10-20); BUN (Urea Nitrogen) 37 mg/dL (9.8-20.1); Calc. Creatinine Clearance 23 mL/min (70-130); Calcium 8.2 mg/dL (7.8-10.44); Carbon Dioxide 21 mmol/L (22-29); Chloride 109 mmol/L (98-107); Estimated GFR 19; Glucose 120 mg/dL (70-105); Magnesium 1.9 mg/dL (1.6-2.6); Potassium 3.5 mmol/L (3.5-5.1); Sodium 141 mmol/L (136-145)
[2022-10-07 07:20] LABS: #Eosinphils 0.1 10x3/uL (0.0-0.5); #Monocytes 0.6 10x3/uL (0.0-1.1); #Neutrophils 2.5 10x3/uL (1.5-8.4); %Basophils 0.8 % (0.0-2.0); %Eosinophils 2.6 % (0.0-6.0); %Monocytes 11.1 % (0.0-10.0); %Neutrophils 50.1 % (40.0-75.0); Hemoglobin 9.2 g/dL (12.0-15.5); Mean Corpuscular HGB CONC 31.9 g/dL (32.0-36.0); Mean Corpuscular Hemoglobin 27.2 pg (27.0-33.0); Mean Corpuscular Volume 85.2 fl (81.6-98.3); Mean Platelet Volume 10.5 fl (7.4-10.4); Platelet Count 221 10x3/uL (150-450); RBC Distribution Width 14.3 % (11.5-14.5); Red Blood Cell (RBC) Count 3.38 10x6/uL (3.90-5.03)
[2022-10-07] MEDS: Rosuvastatin 20 MG TAB PO SCH (08:25)
[2022-10-07] MEDS: Benzonatate 100 MG CAP PO SCH ×3 (08:26→20:16)
[2022-10-07] MEDS: Sodium Bicarbonate Tab 325 MG TAB PO SCH ×3 (08:26→20:18)
[2022-10-07] MEDS: Sacubitril 24MG/Valsartan 26 MG TAB PO SCH ×2 (08:26→20:56)
[2022-10-07] MEDS: guaiFENesin ER 600 MG TAB PO SCH ×2 (08:27→20:16)
[2022-10-07] MEDS: Escitalopram Oxalate 10 mg Tablet PO SCH (08:27)
[2022-10-07] MEDS: Sevelamer Carbonate 800 MG TAB PO SCH ×3 (08:27→17:16)
[2022-10-07] MEDS: Ferrous Sulfate 325 MG TAB PO SCH ×2 (08:28→17:16)
[2022-10-07] MEDS: Heparin 5,000 UNITS/ML VIAL SC SCH ×3 (08:28→20:18)
[2022-10-07] MEDS: Cefepime 1 GM in Sodium Chloride 0.9% 100 ML IVPB SCH ×2 (08:28→20:16)
[2022-10-07] MEDS: Loperamide HCl 2 MG CAP PO PRN ×2 (13:48→18:41)
[2022-10-07] MEDS: ALPRAZolam 0.5 MG TAB PO PRN (21:59)
[2022-10-08] MEDS: metroNIDAZOLE 500 MG in Premix Bag 1 BAG IVPB SCH ×3 (01:27→17:10)
[2022-10-08] MEDS: hydrOXYzine 25 MG TAB PO PRN (01:33)
[2022-10-08 04:40] LABS: #Basophils 0.1 10x3/uL (0.0-0.2); #Eosinphils 0.2 10x3/uL (0.0-0.5); #Monocytes 0.6 10x3/uL (0.0-1.1); #Neutrophils 3.6 10x3/uL (1.5-8.4); %Basophils 0.8 % (0.0-2.0); %Lymphocytes 30.7 % (18.0-47.0); %Monocytes 8.9 % (0.0-10.0); %Neutrophils 56.1 % (40.0-75.0); Mean Corpuscular HGB CONC 32.4 g/dL (32.0-36.0); Mean Corpuscular Hemoglobin 27.1 pg (27.0-33.0); Mean Corpuscular Volume 83.7 fl (81.6-98.3); Mean Platelet Volume 10.1 fl (7.4-10.4); Platelet Count 271 10x3/uL (150-450); RBC Distribution Width 14.1 % (11.5-14.5); Red Blood Cell (RBC) Count 3.69 10x6/uL (3.90-5.03); White Blood Cell (WBC) Count 6.4 10x3/uL (3.5-10.5)
[2022-10-08 04:47] LABS: Anion Gap 14 mmol/L (10-20); BUN (Urea Nitrogen) 33 mg/dL (9.8-20.1); Calc. Creatinine Clearance 25 mL/min (70-130); Carbon Dioxide 19 mmol/L (22-29); Chloride 109 mmol/L (98-107); Estimated GFR 21; Glucose 118 mg/dL (70-105); Magnesium 1.8 mg/dL (1.6-2.6); Potassium 3.5 mmol/L (3.5-5.1); Sodium 138 mmol/L (136-145)
[2022-10-08] MEDS: Isosorbide Dinitrate 20 MG TAB PO SCH ×3 (06:55→22:06)
[2022-10-08] MEDS: hydrALAZINE 25 MG TAB PO SCH ×3 (06:55→22:06)
[2022-10-08] MEDS: Ondansetron PF 4 MG/2 ML Vial IVP PRN (06:55)
[2022-10-08] MEDS: Cefepime 1 GM in Sodium Chloride 0.9% 100 ML IVPB SCH ×2 (08:31→20:15)
[2022-10-08] MEDS: Heparin 5,000 UNITS/ML VIAL SC SCH ×3 (08:31→20:15)
[2022-10-08] MEDS: Ferrous Sulfate 325 MG TAB PO SCH ×2 (09:56→17:10)
[2022-10-08] MEDS: Sevelamer Carbonate 800 MG TAB PO SCH ×3 (09:57→17:10)
[2022-10-08] MEDS: Benzonatate 100 MG CAP PO SCH ×3 (10:17→20:17)
[2022-10-08] MEDS: Escitalopram Oxalate 10 mg Tablet PO SCH (10:17)
[2022-10-08] MEDS: Sodium Bicarbonate Tab 325 MG TAB PO SCH ×3 (10:18→20:17)
[2022-10-08] MEDS: Sacubitril 24MG/Valsartan 26 MG TAB PO SCH ×2 (10:18→20:17)
[2022-10-08] MEDS: Furosemide 100 MG/10 ML VIAL SLOW IVP SCH (10:18)
[2022-10-08] MEDS: Rosuvastatin 20 MG TAB PO SCH (10:18)
[2022-10-08] MEDS: guaiFENesin ER 600 MG TAB PO SCH ×2 (10:18→20:17)
[2022-10-08] MEDS ORDERED: Sodium Chloride 0.9% 100 ML ONE (20:11)
[2022-10-08] MEDS ORDERED: diphenhydrAMINE 25 MG CAP PO SCH (22:15)
[2022-10-09] MEDS: metroNIDAZOLE 500 MG in Premix Bag 1 BAG IVPB SCH ×3 (00:34→16:17)
[2022-10-09] MEDS: Ondansetron PF 4 MG/2 ML Vial IVP PRN (04:14)
[2022-10-09] MEDS: Isosorbide Dinitrate 20 MG TAB PO SCH ×3 (05:49→21:16)
[2022-10-09] MEDS: hydrALAZINE 25 MG TAB PO SCH ×3 (05:49→21:12)
[2022-10-09 06:01] LABS: #Eosinphils 0.2 10x3/uL (0.0-0.5); #Monocytes 0.5 10x3/uL (0.0-1.1); #Neutrophils 3.5 10x3/uL (1.5-8.4); %Basophils 0.7 % (0.0-2.0); %Eosinophils 2.8 % (0.0-6.0); %Lymphocytes 25.4 % (18.0-47.0); %Monocytes 9.4 % (0.0-10.0); %Neutrophils 61.2 % (40.0-75.0); Hemoglobin 10.2 g/dL (12.0-15.5); Mean Corpuscular HGB CONC 32.4 g/dL (32.0-36.0); Mean Corpuscular Hemoglobin 27.2 pg (27.0-33.0); Mean Platelet Volume 9.3 fl (7.4-10.4); Platelet Count 279 10x3/uL (150-450); RBC Distribution Width 14.3 % (11.5-14.5); Red Blood Cell (RBC) Count 3.75 10x6/uL (3.90-5.03); White Blood Cell (WBC) Count 5.7 10x3/uL (3.5-10.5)
[2022-10-09 06:16] LABS: Anion Gap 13 mmol/L (10-20); BUN (Urea Nitrogen) 32 mg/dL (9.8-20.1); Calc. Creatinine Clearance 26 mL/min (70-130); Carbon Dioxide 21 mmol/L (22-29); Chloride 111 mmol/L (98-107); Estimated GFR 22; Glucose 116 mg/dL (70-105); Magnesium 1.7 mg/dL (1.6-2.6); Potassium 3.5 mmol/L (3.5-5.1); Sodium 141 mmol/L (136-145)
[2022-10-09] MEDS: Furosemide 100 MG/10 ML VIAL SLOW IVP SCH (07:57)
[2022-10-09] MEDS: Heparin 5,000 UNITS/ML VIAL SC SCH ×3 (07:57→20:14)
[2022-10-09] MEDS: Rosuvastatin 20 MG TAB PO SCH (07:58)
[2022-10-09] MEDS: Ferrous Sulfate 325 MG TAB PO SCH ×2 (07:58→16:17)
[2022-10-09] MEDS: hydrOXYzine 25 MG TAB PO PRN (07:58)
[2022-10-09] MEDS: Benzonatate 100 MG CAP PO SCH ×3 (07:59→20:18)
[2022-10-09] MEDS: Sevelamer Carbonate 800 MG TAB PO SCH ×3 (07:59→16:23)
[2022-10-09] MEDS: guaiFENesin ER 600 MG TAB PO SCH ×2 (07:59→20:18)
[2022-10-09] MEDS: Escitalopram Oxalate 10 mg Tablet PO SCH (07:59)
[2022-10-09] MEDS: Sodium Bicarbonate Tab 325 MG TAB PO SCH ×3 (07:59→20:17)
[2022-10-09] MEDS: Sacubitril 24MG/Valsartan 26 MG TAB PO SCH ×2 (08:03→20:17)
[2022-10-09] MEDS: Cefepime 1 GM in Sodium Chloride 0.9% 100 ML IVPB SCH ×2 (09:01→20:19)
[2022-10-10] MEDS: metroNIDAZOLE 500 MG in Premix Bag 1 BAG IVPB SCH ×2 (00:05→09:20)
[2022-10-10 04:59] LABS: #Basophils 0.1 10x3/uL (0.0-0.2); #Eosinphils 0.2 10x3/uL (0.0-0.5); #Monocytes 0.6 10x3/uL (0.0-1.1); #Neutrophils 3.5 10x3/uL (1.5-8.4); %Basophils 0.8 % (0.0-2.0); %Eosinophils 3.3 % (0.0-6.0); %Lymphocytes 31.3 % (18.0-47.0); %Monocytes 9.1 % (0.0-10.0); %Neutrophils 54.9 % (40.0-75.0); Hemoglobin 10.5 g/dL (12.0-15.5); Mean Corpuscular HGB CONC 32.5 g/dL (32.0-36.0); Mean Corpuscular Hemoglobin 27.3 pg (27.0-33.0); Mean Corpuscular Volume 83.9 fl (81.6-98.3); Mean Platelet Volume 8.5 fl (7.4-10.4); Platelet Count 282 10x3/uL (150-450); RBC Distribution Width 14.6 % (11.5-14.5); Red Blood Cell (RBC) Count 3.85 10x6/uL (3.90-5.03); White Blood Cell (WBC) Count 6.4 10x3/uL (3.5-10.5)
[2022-10-10 05:01] LABS: Anion Gap 14 mmol/L (10-20); BUN (Urea Nitrogen) 29 mg/dL (9.8-20.1); Calc. Creatinine Clearance 28 mL/min (70-130); Calcium 8.2 mg/dL (7.8-10.44); Carbon Dioxide 18 mmol/L (22-29); Chloride 113 mmol/L (98-107); Estimated GFR 24; Glucose 90 mg/dL (70-105); Potassium 3.6 mmol/L (3.5-5.1); Sodium 141 mmol/L (136-145)
[2022-10-10] MEDS: hydrALAZINE 25 MG TAB PO SCH (05:40)
[2022-10-10] MEDS: Isosorbide Dinitrate 20 MG TAB PO SCH (05:41)
[2022-10-10] MEDS: Cefepime 1 GM in Sodium Chloride 0.9% 100 ML IVPB SCH (07:55)
[2022-10-10] MEDS: Heparin 5,000 UNITS/ML VIAL SC SCH (07:55)
[2022-10-10] MEDS: Furosemide 100 MG/10 ML VIAL SLOW IVP SCH (07:56)
[2022-10-10] MEDS: Escitalopram Oxalate 10 mg Tablet PO SCH (07:57)
[2022-10-10] MEDS: guaiFENesin ER 600 MG TAB PO SCH ×2 (07:57→09:21)
[2022-10-10] MEDS: Sodium Bicarbonate Tab 325 MG TAB PO SCH ×2 (07:57→09:21)
[2022-10-10] MEDS: Ferrous Sulfate 325 MG TAB PO SCH ×2 (07:58→09:20)
[2022-10-10] MEDS: Rosuvastatin 20 MG TAB PO SCH (07:58)
[2022-10-10] MEDS: Benzonatate 100 MG CAP PO SCH ×2 (07:58→09:20)
[2022-10-10] MEDS: Sacubitril 24MG/Valsartan 26 MG TAB PO SCH (08:01)
[2022-10-10] MEDS: Sevelamer Carbonate 800 MG TAB PO SCH ×2 (09:19→12:48)
[2022-10-10 12:03] VITALS: BP 137/65; TEMP 98
== END 2022-10-10 12:25 | disposition home or self-care (01) | DRG 291 ==
LOC: CSHERS 00:41 → CSHERHOLD 04:36 → CSHTELE 16:50 → CSHIMCU 10-05 06:15
PROVIDERS: ADMIT Student in an Organized Health Care Education/Training Program; ATTEND Internal Medicine
PROC: 4A033R1 Measurement of Arterial Saturation, Peripheral, Percutaneous Approach (ICD-10-PCS; 2022-09-30)
PROC: 5A09357 Assistance with Respiratory Ventilation, Less than 24 Consecutive Hours, Continuous Positive Airway Pressure (ICD-10-PCS; principal; 2022-10-05)
PROC: 5A0945A Assistance with Respiratory Ventilation, 24-96 Consecutive Hours, High Flow/Velocity Cannula (ICD-10-PCS; 2022-10-05)
DX: I13.0 Hypertensive heart and chronic kidney disease with heart failure and stage 1 through stage 4 chronic kidney disease, or unspecified chronic kidney disease (principal); I50.43 Acute on chronic combined systolic (congestive) and diastolic (congestive) heart failure; J96.21 Acute and chronic respiratory failure with hypoxia; N17.9 Acute kidney failure, unspecified; J98.11 Atelectasis; N18.30 Chronic kidney disease, stage 3 unspecified; E11.22 Type 2 diabetes mellitus with diabetic chronic kidney disease; R19.7 Diarrhea, unspecified; Z20.822 Contact with and (suspected) exposure to COVID-19; R53.81 Other malaise; E87.6 Hypokalemia; I34.0 Nonrheumatic mitral (valve) insufficiency; D63.1 Anemia in chronic kidney disease; E11.42 Type 2 diabetes mellitus with diabetic polyneuropathy; E11.21 Type 2 diabetes mellitus with diabetic nephropathy; E83.39 Other disorders of phosphorus metabolism; Z87.01 Personal history of pneumonia (recurrent); Z79.899 Other long term (current) drug therapy; Z86.16 Personal history of COVID-19; Z98.51 Tubal ligation status
CPT/HCPCS: 36415; 36416; 70450; 71045; 71250; 80048; 80053; 80076; 80202; 81001; 82805; 83036; 83605; 83735; 83880; 83970; 84443; 84484; 85025; 85610; 85730; 87040; 87081; 87086; 87324; 87449; 87633; 87899; 93005; 93010; 94640; 94660; 94760; 94762; 94799; J0692; J1200; J1644; J1940; J2405; J2765; J3370; J3490; J7611; P9047; Q5105; U0002

== ENCOUNTER 2022-12-06 00:10 | Inpatient (IN) | payer BC ==
[2022-12-06] MEDS ORDERED: Nitroglycerin 2% Ointment 1 INCH/1 GM Packet ONE (00:44)
[2022-12-06] MEDS ORDERED: Aspirin Chewable 81 MG TAB ONE (00:45)
[2022-12-06] MEDS ORDERED: Furosemide 100 MG/10 ML VIAL ONE (00:46)
[2022-12-06 00:52] LABS: #Basophils 0.1 10x3/uL (0.0-0.2); #Eosinphils 0.2 10x3/uL (0.0-0.5); #Monocytes 0.5 10x3/uL (0.0-1.1); #Neutrophils 4.7 10x3/uL (1.5-8.4); %Eosinophils 2.4 % (0.0-6.0); %Lymphocytes 23.3 % (18.0-47.0); %Neutrophils 65.9 % (40.0-75.0); Hemoglobin 11.4 g/dL (12.0-15.5); Mean Corpuscular HGB CONC 32.2 g/dL (32.0-36.0); Mean Corpuscular Hemoglobin 27.1 pg (27.0-33.0); Mean Corpuscular Volume 84.1 fl (81.6-98.3); Mean Platelet Volume 9.6 fl (7.4-10.4); Platelet Count 310 10x3/uL (150-450); RBC Distribution Width 15.1 % (11.5-14.5); Red Blood Cell (RBC) Count 4.21 10x6/uL (3.90-5.03); White Blood Cell (WBC) Count 7.1 10x3/uL (3.5-10.5)
[2022-12-06 01:24] LABS: ALT (SGPT) Less than 7 U/L (8-55); AST (SGOT) 14 U/L (5-34); Albumin 2.8 g/dL (3.5-5.0); Alkaline Phosphatase 70 U/L (40-110); Anion Gap 16 mmol/L (10-20); BUN (Urea Nitrogen) 40 mg/dL (9.8-20.1); Bilirubin, Total 0.2 mg/dL (0.2-1.2); Calc. Creatinine Clearance 0 mL/min (70-130); Carbon Dioxide 17 mmol/L (22-29); Chloride 111 mmol/L (98-107); Estimated GFR 28; Glucose 171 mg/dL (70-105); Potassium 3.9 mmol/L (3.5-5.1); Protein, Total 5.8 g/dL (6.0-8.3); Sodium 140 mmol/L (136-145)
[2022-12-06] MEDS ORDERED: hydrOXYzine 25 MG TAB PO PRN (03:58)
[2022-12-06] MEDS ORDERED: Furosemide 40 MG/4 ML VIAL ONE ×2 (05:43→13:52)
[2022-12-06] MEDS: Isosorbide Dinitrate 20 MG TAB PO SCH ×3 (06:03→22:41)
[2022-12-06] MEDS: Furosemide 40 MG/4 ML VIAL SLOW IVP SCH ×2 (06:03→13:55)
[2022-12-06 08:26] LABS: Anion Gap 12 mmol/L (10-20); BUN (Urea Nitrogen) 38 mg/dL (9.8-20.1); Calc. Creatinine Clearance 0 mL/min (70-130); Calcium 8.6 mg/dL (7.8-10.44); Carbon Dioxide 20 mmol/L (22-29); Chloride 111 mmol/L (98-107); Estimated GFR 30; Glucose 144 mg/dL (70-105); Potassium 3.7 mmol/L (3.5-5.1); Sodium 139 mmol/L (136-145)
[2022-12-06] MEDS ORDERED: Lisinopril 10 MG TAB ONE (09:31)
[2022-12-06] MEDS: Empagliflozin 10 MG TAB PO SCH (09:38)
[2022-12-06] MEDS: Escitalopram Oxalate 10 mg Tablet PO SCH (09:39)
[2022-12-06] MEDS: Lisinopril 10 MG TAB PO SCH (09:39)
[2022-12-06] MEDS: Rosuvastatin 20 MG TAB PO SCH (09:39)
[2022-12-06 15:48] VITALS: BMI 24.7
[2022-12-06] MEDS: Pregabalin 75 MG CAP PO SCH (16:17)
[2022-12-06] MEDS: traMADol HCl 50 MG TAB PO PRN (18:37)
[2022-12-07] MEDS: Furosemide 40 MG/4 ML VIAL SLOW IVP SCH ×2 (05:44→14:38)
[2022-12-07] MEDS: Isosorbide Dinitrate 20 MG TAB PO SCH ×3 (05:45→21:29)
[2022-12-07 05:56] LABS: Anion Gap 11 mmol/L (10-20); BUN (Urea Nitrogen) 38 mg/dL (9.8-20.1); Calc. Creatinine Clearance 30 mL/min (70-130); Calcium 8.2 mg/dL (7.8-10.44); Carbon Dioxide 22 mmol/L (22-29); Chloride 110 mmol/L (98-107); Estimated GFR 29; Glucose 124 mg/dL (70-105); Magnesium 1.9 mg/dL (1.6-2.6); Potassium 3.7 mmol/L (3.5-5.1); Sodium 139 mmol/L (136-145)
[2022-12-07] MEDS: Pregabalin 75 MG CAP PO SCH (10:47)
[2022-12-07] MEDS: Lisinopril 10 MG TAB PO SCH (10:47)
[2022-12-07] MEDS: Rosuvastatin 20 MG TAB PO SCH (10:47)
[2022-12-07] MEDS: Escitalopram Oxalate 10 mg Tablet PO SCH (10:48)
[2022-12-07] MEDS: Empagliflozin 10 MG TAB PO SCH (10:48)
[2022-12-07] MEDS: traMADol HCl 50 MG TAB PO PRN (14:50)
[2022-12-08 04:15] LABS: #Basophils 0.1 10x3/uL (0.0-0.2); #Eosinphils 0.1 10x3/uL (0.0-0.5); #Monocytes 0.4 10x3/uL (0.0-1.1); #Neutrophils 3.8 10x3/uL (1.5-8.4); %Basophils 1.4 % (0.0-2.0); %Eosinophils 2.2 % (0.0-6.0); %Lymphocytes 24.8 % (18.0-47.0); %Neutrophils 64.3 % (40.0-75.0); Hemoglobin 9.9 g/dL (12.0-15.5); Mean Corpuscular HGB CONC 31.9 g/dL (32.0-36.0); Mean Corpuscular Hemoglobin 27.3 pg (27.0-33.0); Mean Corpuscular Volume 85.6 fl (81.6-98.3); Mean Platelet Volume 9.7 fl (7.4-10.4); Platelet Count 275 10x3/uL (150-450); RBC Distribution Width 14.8 % (11.5-14.5); Red Blood Cell (RBC) Count 3.62 10x6/uL (3.90-5.03); White Blood Cell (WBC) Count 5.8 10x3/uL (3.5-10.5)
[2022-12-08 04:30] LABS: Anion Gap 12 mmol/L (10-20); BUN (Urea Nitrogen) 40 mg/dL (9.8-20.1); Calc. Creatinine Clearance 29 mL/min (70-130); Carbon Dioxide 20 mmol/L (22-29); Chloride 109 mmol/L (98-107); Estimated GFR 28; Glucose 159 mg/dL (70-105); Potassium 3.9 mmol/L (3.5-5.1); Sodium 137 mmol/L (136-145)
[2022-12-08] MEDS: Furosemide 40 MG/4 ML VIAL SLOW IVP SCH ×2 (06:15→14:06)
[2022-12-08] MEDS: Isosorbide Dinitrate 20 MG TAB PO SCH ×2 (06:15→14:06)
[2022-12-08] MEDS: Rosuvastatin 20 MG TAB PO SCH (08:56)
[2022-12-08] MEDS: Pregabalin 75 MG CAP PO SCH (08:56)
[2022-12-08] MEDS: Empagliflozin 10 MG TAB PO SCH (08:56)
[2022-12-08] MEDS: Escitalopram Oxalate 10 mg Tablet PO SCH (08:57)
[2022-12-08] MEDS: Lisinopril 10 MG TAB PO SCH (09:46)
[2022-12-08 12:29] VITALS: BP 152/83; TEMP 98.2
[2022-12-09] MEDS ORDERED: Rosuvastatin 10 MG TAB PO SCH (09:00)
== END 2022-12-08 15:10 | disposition home or self-care (01) | DRG 291 ==
LOC: CSHERS 00:10 → CSHERHOLD 03:49 → CSHTELE 15:41
PROVIDERS: ADMIT Family Medicine; ATTEND Internal Medicine
DX: I13.0 Hypertensive heart and chronic kidney disease with heart failure and stage 1 through stage 4 chronic kidney disease, or unspecified chronic kidney disease (principal); I50.43 Acute on chronic combined systolic (congestive) and diastolic (congestive) heart failure; J96.21 Acute and chronic respiratory failure with hypoxia; E11.22 Type 2 diabetes mellitus with diabetic chronic kidney disease; E78.5 Hyperlipidemia, unspecified; E87.70 Fluid overload, unspecified; N18.30 Chronic kidney disease, stage 3 unspecified; Z99.81 Dependence on supplemental oxygen; Z86.16 Personal history of COVID-19; Z98.890 Other specified postprocedural states; Z79.899 Other long term (current) drug therapy; Z98.51 Tubal ligation status
CPT/HCPCS: 36415; 71045; 80048; 80053; 83735; 83880; 84100; 84484; 85025; 93005; 96374; J1650; J1940